=== PATIENT | female | born 1950 | race Caucasian/White ===

== ENCOUNTER → 2018-01-28 15:54 | Outpatient (CLI) | payer BC, SELFPAY ==
[2018-01-28 16:51] LABS: Absolute Lymphocyte Count 1.66 X10^3/ul (0.83-4.51); Absolute Neutrophil Count 2.6 X10^3/uL (2.0-7.7); Basophil# 0.02 X10^3/uL; Basophil% 0.4 % (0-1); Eosinophil# 0.07 X10^3/uL; Eosinophils% 1.5 % (0-5); Hematocrit 33.1 % (37-47); Hemoglobin 10.9 g/dl (12.0-15.0); Lymphocyte # 1.66 X10^3/ul (4.0); Lymphocyte % 35.4 % (19-41); Mean Corp Hgb Conc 32.9 g/gl (32-36); Mean Corpuscular Hgb 30.5 pg (27.0-32.0); Mean Corpuscular Volume 92.7 fL (81-99); Mean Platelet Vol. 10.8 fl (6.2-12.0); Monocyte# 0.37 X10^3/uL; Monocyte% 7.9 % (0-10); Neutrophil # 2.57 X10^3/uL (2.7-7.7); Neutrophil % 54.8 % (47-70); Platelet Count 259 K/mm3 (150-450); RBC Distribution Width CV 13.1 % (11.6-14.6); RBC Distribution Width SD 43.2 fl (35.1-43.9); Red Blood Count 3.57 M/mm3 (4.2-5.4); White Blood Count 4.7 K/mm3 (4.4-11.0)
[2018-01-28 16:54] LABS: POSITIVE COUNT NO; POSITIVE DIFFERENTIAL NO; POSITIVE MORPHOLOGY NO
[2018-01-28 17:22] LABS: AST(SGOT) 18 U/L (15-37); Alanine Aminotransfer ALT/SGPT 19 U/L (13-56); Albumin, Serum 3.4 g/dL (3.2-5.0); Alkaline Phosphatase 74 U/L (45-117); Anion Gap 10 (5-15); BUN 20 mg/dL (7-18); Calcium,Total 8.4 mg/dL (8.5-10.1); Chloride 110 mmol/L (98-107); Creatinine, Serum 0.74 mg/dL (0.55-1.02); EST Glomerular Filtration Rate 83 mL/min (>60); Est Glom Filt Rate - Afr Amer 100 mL/min (>60); Globulin 3.3 g/dL (2.2-4.2); Glucose 97 mg/dL (74-106); Potassium 3.6 mmol/L (3.5-5.1); Protein, Total 6.7 g/dL (6.4-8.2); Sodium Level 143 mmol/L (136-145); Thyroid Stim Hormone (TSH) 1.43 uIU/mL (0.358-3.74)
[2018-01-29 08:13] LABS: Vitamin D,25 Hydroxy 27.4 ng/mL (29.95-100.01)
== END ==
LOC: POLAB3 15:56
PROVIDERS: Family Provider Family Medicine Geriatric Medicine; PCP Family Medicine Geriatric Medicine; Visit Provider Family Medicine Geriatric Medicine
DX: I10 Essential (primary) hypertension (principal); E55.9 Vitamin D deficiency, unspecified; R53.83 Other fatigue
CPT/HCPCS: 36415; 80053; 82306; 84443; 85025

== ENCOUNTER → 2018-02-14 16:09 | Outpatient (CLI) | payer MEDICARE, SELFPAY ==
[2018-02-14 18:05] LABS: Ferritin 42 ng/mL (8-252); Iron 68 ug/dL (50-170)
[2018-02-14 18:24] LABS: Hemoglobin 11.3 g/dl (12.0-15.0); Mean Corp Hgb Conc 32.3 g/gl (32-36); Mean Corpuscular Hgb 30.6 pg (27.0-32.0); Mean Corpuscular Volume 94.9 fL (81-99); Mean Platelet Vol. 10.8 fl (6.2-12.0); Platelet Count 265 K/mm3 (150-450); RBC Distribution Width CV 13.1 % (11.6-14.6); RBC Distribution Width SD 43.8 fl (35.1-43.9); Red Blood Count 3.69 M/mm3 (4.2-5.4); White Blood Count 4.2 K/mm3 (4.4-11.0)
[2018-02-14 18:35] LABS: Scan Indicated on CBC? Y/N NO
== END ==
PROVIDERS: Family Provider Family Medicine Geriatric Medicine; PCP Family Medicine Geriatric Medicine; Visit Provider Internal Medicine Gastroenterology
DX: D50.9 Iron deficiency anemia, unspecified (principal)
CPT/HCPCS: 36415; 82728; 83540; 85027

== ENCOUNTER → 2018-05-07 15:09 | Outpatient (CLI) | payer MEDICARE, SELFPAY ==
[2018-05-07 16:40] LABS: Erythrocyte Sedimentation Rate 11 mm/hr (0-30)
[2018-05-07 16:42] LABS: Anion Gap 8 (5-15); BUN 23 mg/dL (7-18); BUN/Creat Ratio 26.7 RATIO (10-20); CRP < 2.90 mg/L (0.0-3.0); Calcium,Total 8.5 mg/dL (8.5-10.1); Chloride 111 mmol/L (98-107); Creatinine, Serum 0.86 mg/dL (0.55-1.02); EST Glomerular Filtration Rate 69 mL/min (>60); Est Glom Filt Rate - Afr Amer 84 mL/min (>60); Glucose 105 mg/dL (74-106); Sodium Level 145 mmol/L (136-145); Uric Acid 4.9 mg/dL (2.6-6.0)
== END ==
LOC: LAB 15:13
PROVIDERS: Family Provider Family Medicine Geriatric Medicine; PCP Family Medicine Geriatric Medicine; Visit Provider Family Medicine Geriatric Medicine
DX: M10.9 Gout, unspecified (principal); M79.1 Myalgia; R05 Cough
CPT/HCPCS: 36415; 80048; 84550; 85652; 86140

== ENCOUNTER → 2018-11-10 11:57 | Outpatient (CLI) | payer MEDICARE, SELFPAY ==
--- OUTSIDE RECORDS SUMMARY | 2019-01-12 23:01 | XMS RPT_ITS ---
:1950 Author Organization OHIP Support Name Relationship Address Phone OVERLFavian, MALIHA Unavailable [address] [place] [address] R Unavailable Unavailable Unavailable OVERLY, MALIHA Unavailable [address] [place] [address] R Unavailable Unavailable Unavailable OVERLY, MALIHA Unavailable [address] [place] [address] R Unavailable Unavailable Unavailable OVERLY, MALIAH Unavailable [address] [place] [address] R Unavailable Unavailable Unavailable OVERLY, MALIHA Unavailable [address] [place] [address] R Unavailable Unavailable Unavailable OVERLY, MALIHA Unavailable [address] [place] [address] R Unavailable Unavailable Unavailable OVERLY, MALIHA Unavailable [address] [place] [address] R Unavailable Unavailable Unavailable OVERLY, MALIHA Unavailable [address] [place] [address] R Unavailable Unavailable Unavailable OVERLY, MALIHA Unavailable [address] [place] [address] R Unavailable Unavailable Unavailable OVERLY, MALIHA Unavailable [address] [place] [address] R Unavailable Unavailable Unavailable Care Team Providers Name Role Phone Tab, Terence Chi Attending Unavailable Tab, Terence Chi Primary Care Unavailable Tab, Terence Chi Attending Unavailable Tab, Terence Chi Primary Care Unavailable Jarek Castro Attending Unavailable Jarek Castro Referring Unavailable Tab, Terence Chi Primary Care Unavailable Ashly Bennett D.C. Attending Unavailable Tab, Terence Chi Referring Unavailable Tab, Terence Chi Primary Care Unavailable DossieAshly D.C. Attending Unavailable DossieAshly D.C. Referring Unavailable Tab, Terence Chi Primary Care Unavailable DossieAshly D.C. Attending Unavailable Tab, Terence Chi Referring Unavailable Tab, Terence Chi Primary Care Unavailable DossieAshly D.C. Attending Unavailable Tab, Ternece Chi Referring Unavailable Tab, Terence Chi Attending Unavailable Tab, Terence Chi Referring Unavailable Tab, Terence Chi Primary Care Unavailable DossieAshly D.C. Attending Unavailable Tab, Terence Chi Referring Unavailable Tab, Terence Chi Primary Care Unavailable DossieAshly D.C. Attending Unavailable Tab, Terence Chi Referring Unavailable Tab, Terence Chi Primary Care Unavailable PROBLEMS PROBLEMS DATE TYPE CONDITION / CODE ATTENDING STATUS SOURCE 06/06/2018 Unknown M99.01 - Dossie, Ashly Active [place] [facility] dysfunction of Repository cervical region / M99.01(ICD-10) 06/06/2018 Unknown M99.02 - Dossie, Ashly Active [place] [facility] dysfunction of Repository thoracic region / M99.02(ICD-10) 06/06/2018 Unknown R51 - Headache / Dossie, Ashly Active [place] R51(ICD-10) [facility] Repository 06/06/2018 Unknown M50.30 - Other Dossie, Ashly Active [place] cervical disc D.C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 coli [place] Count 80,000-100,000 Presumptive E. coli: REACTION Ampicillin $ >=32 R Ampicillin/Sulbactam $ 16 I Cefazolin $ <=4 S Cefepime $ <=0.12 S Ceftazidime *NF <=1 S Ceftriaxone $ <=0.25 S Ciprofloxacin $ <=0.25 S Ertapenim $$$ <=0.12 S ESBL NEG Gentamicin $ <=1 S Imipenem *NF <=0.25 S Levofloxacin $ <=0.12 S Nitrofurantoin $ <=16 S Piperacillin/Tazobactam $$ <=4 S Tobramycin $ <=1 S Trimethoprim/Sulfametho $ <=20 S (NF) indicates non-formulary drug at [facility]. Approval by Infectious Disease Specialist required before non-formulary drugs may be ordered and/or dispensed. Performed By: #### M100.0650 #### [facility] [place], [address] CHIROPRACTIC REPORT Observed: 06/16/2018 Status: F Source: [place] 1:40 PM [facility] REPOSITORY [facility] [address] [place], [place] [id number] OFFICE VISIT Date of Service: 06/05/18 MR#: [id number] Acct: [id number] Name: AIMEE BLEVINS Rep #: [id number] : 1950 Provider: Ashly Rivers D.C. Age/Sex: 68/F Location: [facility] [place] Status: Signed Intake Vital Signs06/05/18 Height 5 ft 6 in 06/05/18 Weight: 175 lb 06/05/18 Body Mass Index (BMI) 28.2 Intake Visit Reasons: neck pain Chief Complaint: neck pain Is patient in pain?: Yes Allergies No Known Allergies Allergy (Verified 01/17/17 15:19) Medications Atorvastatin Calcium [Lipitor] 80 mg PO QHS 01/11/17 [History Confirmed 01/17/17] Docusate Sodium [Colace] 100 mg PO DAILY #20 cap 01/11/17 [Rx Confirmed 01/17/17] Fluoxetine HCl 60 mg PO DAILY 01/11/17 [History Confirmed 01/17/17] Losartan Potassium 100 mg PO DAILY 01/11/17 [History Confirmed 01/17/17] Fluoxetine [Prozac] 10 mg PO DAILY 01/17/17 [History Confirmed 01/17/17] PFSH Social History Smoking Status: Never smoker alcohol intake: never what type of physical activity do you participate in: none HPI neck pain : Chief Complaint: neck pain Visit Number: 4 Details: AIMEE BLEVINS is a 68 year old F who presents with decreased neck pain. She states that after last treatment her pain has slightly decreased, leaving her with a dull ache that comes and goes. She states that her headaches have slightly decreased, leaving her with roughly 3 per week. Lifting, sleeping and rotation causes increased pain although she denies any numbness or tingling. Location: neck pain Duration: intermittent Aggravating or associated factors: rotation of the neck, sleeping Relieving factors: chiro Pain Quality: aching, dull, cramping Exam Musc General: Yes normal gait, joint tenderness (C1, C2, C6, C7, T1, T2) and decreased ROM; no normal posture (anterior head carriage) Cervical Spine: loss of normal cervical lordosis, cervical muscular tenderness bilateral lower: paracervical muscle and trapezius, pain with cervical ROM with lateral flexion to right and with lateral flexion to left, cervical spasm, cervical ROM abnormal lateral flexion to the right decreased, lateral flexion to the left decreased, rotation to left decreased and rotation to right decreased Office Procedures Chiropractic Treatments Procedures Manipulation: 1-2 regions (C1, C6, T1, T2) Assessment AND Plan 1. Degenerative disc disease, cervical M50.30 Orders Orders: 2. Segmental and somatic dysfunction of thoracic region M99.02 Orders Orders: 3. Cervicogenic headache R51 Orders Orders: 4. Segmental and somatic dysfunction of cervical region M99.01 Orders Orders: Plan Detail Goals Decrease KENNEDY Decrease inflammation Barriers DDD Follow Up 1 x week Coding Level of Care Code No Charge Diagnoses Degenerative disc disease, cervical M50.30 Segmental and somatic dysfunction of thoracic region M99.02 Cervicogenic headache R51 Segmental and somatic dysfunction of cervical region M99.01 Additional Codes Procedures - Manipulation: 1-2 regions (43825) 06/16/18 1340 <Electronically signed by Ashly Rivers D.C.> Date Ashly Hernandezigndariana Signature: Date (if applicable) CC: CHIROPRACTIC REPORT Observed: 06/09/2018 Status: F Source: [place] 9:20 AM [facility] [address] [place] [address] OFFICE VISIT Date of Service: 05/29/18 MR#: [id number] Acct: [id number] Name: AIMEE BLEVINS Rep #: [id number] : 1950 Provider: Ashly Rivers D.C. Age/Sex: 68/F Location: [facility] Status: Signed Intake Vital Signs05/29/18 Height 5 ft 6 in 05/29/18 Weight: 175 lb 05/29/18 Body Mass Index (BMI) 28.2 Intake Visit Reasons: neck pain Chief Complaint: neck pain Accompanied by: Is patient in pain?: Yes Allergies No Known Allergies Allergy (Verified 01/17/17 15:19) Medications Atorvastatin Calcium [Lipitor] 80 mg PO QHS 01/11/17 [History Confirmed 01/17/17] Docusate Sodium [Colace] 100 mg PO DAILY #20 cap 01/11/17 [Rx Confirmed 01/17/17] Fluoxetine HCl 60 mg PO DAILY 01/11/17 [History Confirmed 01/17/17] Losartan Potassium 100 mg PO DAILY 01/11/17 [History Confirmed 01/17/17] Fluoxetine [Prozac] 10 mg PO DAILY 01/17/17 [History Confirmed 01/17/17] PFSH Social History Smoking Status: Never smoker alcohol intake: never what type of physical activity do you participate in: none HPI neck pain : Chief Complaint: neck pain Visit Number: 3 Details: AIMEE BLEVINS is a 68 year old F who presents with neck pain and headaches. Today Aimee rates her pain a 3/10 and describes it as a tight ache that bands across the neck, lifting, and sleeping cause increased pain that at times will cause a intense headache. Aimee states she is having roughly three headaches a week. The patient denies any numbness or tingling Location: neck Duration: constant Aggravating or associated factors: lifting and sleeping Relieving factors: chiro Pain Quality: aching, dull, sharp Exam Musc General: Yes normal gait, joint tenderness (C1, C2, C6, C7, T1, T2) and decreased ROM; no normal posture (anterior head carriage) Cervical Spine: loss of normal cervical lordosis, cervical muscular tenderness bilateral lower: paracervical muscle and trapezius, pain with cervical ROM with lateral flexion to right and with lateral flexion to left, cervical spasm, cervical ROM abnormal lateral flexion to the right decreased, lateral flexion to the left decreased, rotation to left decreased and rotation to right decreased Office Procedures Chiropractic Treatments Procedures Manipulation: 1-2 regions (C1, C6, T1, T2) Assessment AND Plan 1. Degenerative disc disease, cervical M50.30 Orders Orders: 2. Cervicogenic headache R51 Orders Orders: 3. Segmental and somatic dysfunction of thoracic region M99.02 Orders Orders: 4. Segmental and somatic dysfunction of cervical region M99.01 Orders Orders: Plan Detail Goals Decrease KENNEDY Decrease inflammation Barriers DDD Follow Up 1 Week Coding Level of Care Code No Charge Diagnoses Degenerative disc disease, cervical M50.30 Cervicogenic headache R51 Segmental and somatic dysfunction of thoracic region M99.02 Segmental and somatic dysfunction of cervical region M99.01 Additional Codes Procedures - Manipulation: 1-2 regions (08309) 06/09/18 0920 <Electronically signed by Ashly Rivers D.C.> Date Ashly Rivers D.C. Cosigner Signature: Date (if applicable) CC: ERYTHROCYTE SED RATE Collected: 05/07/2018 Status: F Source: [place] 3:18 PM [facility] REPOSITORY TYPE CODE TESTS RESULT OUT OF RANGE REFERENCE UNITS LAB L102.0000 0-30 mm/hr Normal SED RATE 11 Performed By: #### L101.9900 #### [facility] [address] [place], [place], [id number] BASIC METABOLIC Collected: 05/07/2018 Status: F Source: [place] PROFILE (BMP) 3:18 PM [facility] REPOSITORY TYPE CODE TESTS RESULT OUT OF RANGE REFERENCE UNITS LAB L501.0100 74-106 mg/dL Normal GLU 105 Result Comment: Fasting Glucose result from 100 to 125 mg/dL suggests IMPAIRED HOMEOSTASIS per A.D.A. criteria. Please note revised GLUCOSE reference range effective 2017. LAB L501.1000 7-18 mg/dL High BUN 23 LAB L501.1100 0.55-1.02 mg/dL Normal CREAT,SERUM 0.86 Result Comment: The validity of the calculated GFR AND GFRAA in patients over 70 years has not been determined. Clinical correlation is essential. LAB L501.1110 >60 mL/min Normal EST GFR 69 Result Comment: Non- GFR Calc LAB L501.1115 >60 mL/min Normal EST GFR - AA 84 Result Comment: GFR Calc LAB L501.1300 10-20 RATIO High BUN/CRE 26.7 LAB L501.2200 8.5-10.1 mg/dL CA Normal 8.5 LAB L501.5300 136-145 mmol/L NA Normal 145 LAB L501.5600 3.5-5.1 mmol/L K Normal 4.0 LAB L501.5900 98-107 mmol/L High CL 111 LAB L501.6100 21.0-32.0 mmol/L Normal CO2 26.0 LAB L501.6200 5-15 Normal GAP 8 Performed By: #### L500.2500, L501.1400, L501.6710 #### [facility] [address] [place], [place], [id number] URIC ACID Collected: 05/07/2018 Status: F Source: [place] 3:18 PM [facility] REPOSITORY TYPE CODE TESTS RESULT OUT OF RANGE REFERENCE UNITS LAB L501.1400 2.6-6.0 mg/dL Normal URIC 4.9 Result Comment: The drugs N-Acetylcysteine and Metamizole may falsely depress this assay. Performed By: #### L500.2500, L501.1400, L501.6710 #### [facility] [address] [place], [address] CRP Collected: 05/07/2018 Status: F Source: [place] 3:18 PM [facility] REPOSITORY TYPE CODE TESTS RESULT OUT OF RANGE REFERENCE UNITS LAB L501.6710 0.0-3.0 mg/L Normal < 2.90 C-REACTIVE PROT Result Comment: C-Reactive Protein (CRP) provides useful information for the diagnosis, therapy and monitoring of inflammatory processes and associated diseases. For the evaluation of Relative Risk for Cardiovascular Disease, a High Sensitivity CRP (HSCRP) should be ordered. Performed By: #### L500.2500, L501.1400, L501.6710 #### [facility] [address] [facility] [place], [address] CHIROPRACTIC REPORT Observed: 03/13/2018 Status: F Source: [place] 4:42 PM [facility] REPOSITORY [facility] [address] [place] [address] OFFICE VISIT Date of Service: 03/13/18 MR#: [id number] Acct: [id number] Name: AIMEE BLEVINS Rep #: [id number] : 1950 Provider: Ashly Rivers D.C. Age/Sex: 67/F Location: [facility] Status: Signed Intake Vital Signs03/13/18 Height 5 ft 6 in 03/13/18 Weight: 175 lb 03/13/18 Body Mass Index (BMI) 28.2 Intake Visit Reasons: neck pain Chief Complaint: neck pain Accompanied by: Is patient in pain?: Yes Allergies No Known Allergies Allergy (Verified 01/17/17 15:19) Medications Atorvastatin Calcium [Lipitor] 80 mg PO QHS 01/11/17 [History Confirmed 01/17/17] Docusate Sodium [Colace] 100 mg PO DAILY #20 cap 01/11/17 [Rx Confirmed 01/17/17] Fluoxetine HCl 60 mg PO DAILY 01/11/17 [History Confirmed 01/17/17] Losartan Potassium 100 mg PO DAILY 01/11/17 [History Confirmed 01/17/17] Fluoxetine [Prozac] 10 mg PO DAILY 01/17/17 [History Confirmed 01/17/17] PFSH Social History Smoking Status: Never smoker alcohol intake: never what type of physical activity do you participate in: none HPI neck pain : Chief Complaint: neck pain Visit Number: 2 Details: AIMEE BLEVINS is a 67 year old F who presents with neck pain and headaches. The patient states that her headaches have remained the same, when the weather changes she seems to get a migraine. Today Aimee rates her pain a 4/10 and describes it as a tight and sore ache that radiates across the neck. Aimee denies any numbness, tingling, or radiculopathy. Location: neck Duration: constant Aggravating or associated factors: rotation, looking down and lifting Relieving factors: none Pain Quality: aching, dull, sharp Exam Musc General: Yes normal gait, joint tenderness (C1, C2, C6, C7, T1, T2) and decreased ROM; no normal posture (anterior head carriage) Cervical Spine: loss of normal cervical lordosis, cervical muscular tenderness bilateral lower: paracervical muscle and trapezius, pain with cervical ROM with lateral flexion to right and with lateral flexion to left, cervical spasm, cervical ROM abnormal lateral flexion to the right decreased, lateral flexion to the left decreased, rotation to left decreased and rotation to right decreased Office Procedures Chiropractic Treatments Procedures Manipulation: 1-2 regions (C1, C6, T2) Assessment AND Plan Problems 1. Cervicogenic headache R51 2. Segmental and somatic dysfunction of thoracic region M99.02 3. Segmental and somatic dysfunction of cervical region M99.01 4. Degenerative disc disease, cervical M50.30 Plan Begin acute care treatment plan. Reviewed cervical xrays which revealed cervical DDD.Recommend 2x/wk/2wks Orders Orders: Plan Detail Goals Decrease KENNEDY Decrease inflammation Barriers DDD Follow Up 2x/wk Coding Level of Care Code No Charge Diagnoses Cervicogenic headache R51 Segmental and somatic dysfunction of thoracic region M99.02 Segmental and somatic dysfunction of cervical region M99.01 Degenerative disc disease, cervical M50.30 Additional Codes Procedures - Manipulation: 1-2 regions (06832) 03/13/18 1642 <Electronically signed by Ashly Rivers D.C.> Date Ashly Hernandezigndariana Signature: Date (if applicable) CC: CHIROPRACTIC REPORT Observed: 03/10/2018 Status: F Source: [place] 4:34 PM [facility] [address] [place] [address] OFFICE VISIT Date of Service: 03/06/18 MR#: [id number] Acct: [id number] Name: AIMEE BLEVINS Rep #: [id number] : 1950 Provider: Ashly Rivers D.C. Age/Sex: 67/F Location: [facility] Status: Signed Intake Vital Signs03/06/18 Height 5 ft 6 in 03/06/18 Weight: 175 lb 03/06/18 Body Mass Index (BMI) 28.2 Intake Visit Reasons: neck pain Chief Complaint: neck pain w/ headaches Accompanied by: Is patient in pain?: Yes Allergies No Known Allergies Allergy (Verified 01/17/17 15:19) Medications Atorvastatin Calcium [Lipitor] 80 mg PO QHS 01/11/17 [History Confirmed 01/17/17] Docusate Sodium [Colace] 100 mg PO DAILY #20 cap 01/11/17 [Rx Confirmed 01/17/17] Fluoxetine HCl 60 mg PO DAILY 01/11/17 [History Confirmed 01/17/17] Losartan Potassium 100 mg PO DAILY 01/11/17 [History Confirmed 01/17/17] Fluoxetine [Prozac] 10 mg PO DAILY 01/17/17 [History Confirmed 01/17/17] PFSH Social History Smoking Status: Never smoker alcohol intake: never what type of physical activity do you participate in: none HPI neck pain : Chief Complaint: neck pain Visit Number: 1 Referral source: Dr Barth Details: AIMEE BLEVINS is a 67 year old F who presents with bilateral neck pain. The patient states her pain has been ongoing for years when she was younger she did fall a distance many times causing her to black out. The patient stated she has headaches daily, but denies any migraines. At its worst the neck pain is rated a 6/10 and described as a sharp and tight ache that starts in the neck and radiates into the back of the head and forehead. Aimee denies any numbness or tingling, or radiculopathy although she states her ROM is decreased. Onset: 10/21/89 Location: neck pain Duration: constant Aggravating or associated factors: looking down, rotation, leaning from side to side Relieving factors: medication Pain Quality: aching, dull, sharp, radiating Exam Musc General: Yes normal gait, joint tenderness (C1, C2, C6, C7, T1, T2) and decreased ROM; no normal posture (anterior head carriage) Cervical Spine: loss of normal cervical lordosis, cervical muscular tenderness bilateral lower: paracervical muscle and trapezius, pain with cervical ROM with lateral flexion to right and with lateral flexion to left, cervical spasm, cervical ROM abnormal lateral flexion to the right decreased, lateral flexion to the left decreased, rotation to left decreased and rotation to right decreased Neuro General: alert, awake, oriented x3, gait normal, normal light touch, pain and propioception, no focal motor deficits Ortho Test CERVICAL Compression pain: Negative Distraction pain: relief Erik's pain: Negative Valsalvas: Negative Shoulder depression pain: Right (pos bilaterally) THORACIC LUMBAR Assessment AND Plan Problems 1. Segmental and somatic dysfunction of cervical region M99.01 2. Segmental and somatic dysfunction of thoracic region M99.02 3. Cervicogenic headache R51 Plan Ordered cervical xrays. Recommend acute treatment plan. Orders Orders: Plan Detail Goals Decrease KENNEDY Decrease inflammation Follow Up 2x/wk Coding Level of Care Code Off vis,new,level 3 Diagnoses Segmental and somatic dysfunction of cervical region M99.01 Segmental and somatic dysfunction of thoracic region M99.02 Cervicogenic headache R51 03/10/18 7591 <Electronically signed by Ashly Rivers D.C.> Date Ashly Sawyer Signature: Date (if applicable) CC: IRON Collected: 02/14/2018 Status: F Source: [place] 4:25 PM [facility] REPOSITORY TYPE CODE TESTS RESULT OUT OF RANGE REFERENCE UNITS LAB L503.6150 50-170 ug/dL Normal IRON 68 Performed By: #### L503.6150, L503.6550 #### [facility] [address] [place], [place], [address] FERRITIN Collected: 02/14/2018 Status: F Source: [place] 4:25 PM [facility] REPOSITORY TYPE CODE TESTS RESULT OUT OF RANGE REFERENCE UNITS LAB L503.6550 8-252 ng/mL Normal FERRITIN 42 Performed By: #### L503.6150, L503.6550 #### [facility] [address] [place], [place], [address] CBC-COMPLETE BLOOD CNT Collected: 02/14/2018 Status: F Source: [place] NO DIFF 4:25 PM [facility] REPOSITORY TYPE CODE TESTS RESULT OUT OF RANGE REFERENCE UNITS LAB L100.1000 4.4-11.0 K/mm3 Low WBC 4.2 LAB L100.1200 4.2-5.4 M/mm3 Low RBC 3.69 LAB L100.1300 12.0-15.0 g/dl Low HGB 11.3 LAB L100.1400 37-47 % Low HCT 35.0 LAB L100.1500 81-99 fL Normal MCV 94.9 LAB L100.1600 27.0-32.0 pg Normal MCH 30.6 LAB L100.1700 32-36 g/gl Normal MCHC 32.3 LAB L100.1810 11.6-14.6 % Normal RDW CV 13.1 LAB L100.1820 35.1-43.9 fl Normal RDW SD 43.8 LAB L100.1900 150-450 K/mm3 Normal PLT 265 LAB L100.2000 6.2-12.0 fl Normal MPV 10.8 Performed By: #### L100.0500 #### [facility] [address] [place], [place], [id number] CBC W/DIFF, AUTOMATED Collected: 01/28/2018 Status: F Source: [place] 3:57 PM [facility] REPOSITORY TYPE CODE TESTS RESULT OUT OF RANGE REFERENCE UNITS LAB L100.1000 4.4-11.0 K/mm3 Normal WBC 4.7 LAB L100.1200 4.2-5.4 M/mm3 Low RBC 3.57 LAB L100.1300 12.0-15.0 g/dl Low HGB 10.9 LAB L100.1400 37-47 % Low HCT 33.1 LAB L100.1500 81-99 fL Normal MCV 92.7 LAB L100.1600 27.0-32.0 pg Normal MCH 30.5 LAB L100.1700 32-36 g/gl Normal MCHC 32.9 LAB L100.1810 11.6-14.6 % Normal RDW CV 13.1 LAB L100.1820 35.1-43.9 fl Normal RDW SD 43.2 LAB L100.1900 150-450 K/mm3 Normal PLT 259 LAB L100.2000 6.2-12.0 fl Normal MPV 10.8 LAB L100.2100 47-70 % Normal NEUT% 54.8 LAB L100.2200 19-41 % Normal LY% 35.4 LAB L100.2300 0-10 % Normal MONO% 7.9 LAB L100.2400 0-5 % Normal EO% 1.5 LAB L100.2500 0-1 % Normal BASO% 0.4 LAB L100.2550 0.0-0.9 % Normal IM GRAN % 0.000 Result Comment: IG% - Immature Granulocytes (promyelocytes, myelocytes and metamyelocytes) > 1% indicates that a LEFT SHIFT is Present. LAB L100.2620 2.0-7.7 X10 3/uL Normal Absolute Neut 2.6 LAB L100.2720 0.83-4.51 X10 3/ul Normal Absolute Lymph 1.66 Performed By: #### L100.0100 #### [facility] [address] [place], [place], [address] COMPREHENSIVE METABOLIC Collected: 01/28/2018 Status: F Source: [place] 3:57 PM [facility] REPOSITORY TYPE CODE TESTS RESULT OUT OF RANGE REFERENCE UNITS LAB L501.0100 74-106 mg/dL Normal GLU 97 Result Comment: Please note revised GLUCOSE reference range effective 2017. LAB L501.1000 7-18 mg/dL High BUN 20 LAB L501.1100 0.55-1.02 mg/dL Normal CREAT,SERUM 0.74 Result Comment: The validity of the calculated GFR AND GFRAA in patients over 70 years has not been determined. Clinical correlation is essential. LAB L501.1110 >60 mL/min Normal EST GFR 83 Result Comment: Non- GFR Calc LAB L501.1115 >60 mL/min Normal EST GFR - AA 100 Result Comment: GFR Calc LAB L501.1300 10-20 RATIO High BUN/CRE 27.0 LAB L501.1500 6.4-8.2 g/dL T Normal PROT 6.7 LAB L501.1800 3.2-5.0 g/dL Normal ALB 3.4 LAB L501.1950 2.2-4.2 g/dL Normal GLOB 3.3 LAB L501.2000 0.9-2.4 RATIO Normal A/G 1.0 LAB L501.2200 8.5-10.1 mg/dL Low CA 8.4 LAB L501.4100 15-37 U/L Normal AST 18 LAB L501.4305 45-117 U/L Normal ALK P 74 LAB L501.4405 13-56 U/L Normal ALT 19 Result Comment: Please note revised ALT reference range effective 2017. LAB L501.4600 0.20-1.00 mg/dL Normal T BILI 0.20 LAB L501.5300 136-145 mmol/L Normal NA 143 LAB L501.5600 3.5-5.1 mmol/L Normal K 3.6 LAB L501.5900 98-107 mmol/L High CL 110 LAB L501.6100 21.0-32.0 mmol/L Normal CO2 23.0 LAB L501.6200 5-15 Normal GAP 10 Performed By: #### L500.4050, L501.9520 #### [facility] [address]. [place], [place], [id number] THYROID STIM HORMONE Collected: 01/28/2018 Status: F Source: DESIREE (TSH) 3:57 PM [facility] REPOSITORY TYPE CODE TESTS RESULT OUT OF RANGE REFERENCE UNITS LAB L501.9520 0.358-3.74 uIU/mL Normal TSH 1.43 Performed By: #### L500.4050, L501.9520 #### [facility] [address] [place], [address] VITAMIN D,25 HYDROXY Collected: 01/28/2018 Status: F Source: DESIREE 3:57 PM [facility] REPOSITORY TYPE CODE TESTS RESULT OUT OF REFERENCE UNITS RANGE LAB L506.1000 29.95-100.01 ng/mL Low Vitamin D 27.4 25-OH Result Comment: Vitamin D 25(OH) Status Range Deficiency <20 ng/mL (50nmol/L) Insuffciency 20 - 30 ng/mL (50 - 75 nmol/L) Sufficiency 30 - 100 ng/mL (75 - 250 nmol/L) Toxicity >100 ng/mL (>250 nmol/L) Performed By: #### L506.1000 #### [facility] [address] [place], [address] ALLERGIES ALLERGIES DATE TYPE / CODE NAME / CODE REACTION SEVERITY SOURCE 01/17/2017 Drug No Known Unknown [facility] Allergy/4160 Allergies/F00 [facility] 19453(SNOMED 8225924(RXNOR Repository CT) M) ENCOUNTERS ENCOUNTERS ADMIT/DISCHARGE ACCOUNT ADMITTING ENCOUNTER LOCATION SOURCE NUMBER CLASS 11/10/2018 [id number] Ambulatory Desiree Desiree 0 [facility] ing:POLAB3 Repository 06/05/2018/ [id number] Ambulatory BMSBuilding:B Desiree 8 8 [facility] Repository 05/29/2018/ [id number] Ambulatory BMSBuilding:B [place] 8 1 [facility] Repository 05/07/2018 [id number] Ambulatory Desiree Desiree 5 [facility] ing:LAB Repository 03/24/2018 [id number] Ambulatory BMSBuilding:B Des[place]e 6 [facility] Repository 03/13/2018/ [id number] Ambulatory BMSBuilding:B Des[place] 8 7 [facility] Repository 03/12/2018 [id number] Ambulatory Desiree Desiree 9 [facility] ing:HPRAD Repository 03/06/2018/ [id number] Ambulatory BMSBuilding:B [place] 8 8 [facility] Repository 02/14/2018 [id number] Ambulatory Desiree Desiree 4 [facility] ing:MTLAB Repository 01/28/2018 [id number] Ambulatory [place] 4 [facility] ing:POLAB3 Repository PAYERS PAYERS ENCOUNTER GUARANTOR PAYER SUBSCRIBER SOURCE 11/10/2018 AIMEE Quintanilla [place] [id number] Insurance:ANTHEM OVERLYDOB: Community [employer] S[employer]IOR [id number] ADVANTAPolicy Number: Repository [id number]: 330 [id number] [phone] () Date:[id number] [address]WJ: 11/10/2018 Secondary NOT GIVENUNK Desiree Insurance:SELF PAY [facility] Number: Effective Repository Date:2018-11-10 06/05/2018 AIMEE Quintanilla [place] [id number] Insurance:ANTHEM OVERLYDOB: Community [employer] SENIOR [id number] ADVANTAPolicy Number: Repository [id number]: 330 [id number] [phone] () Date:[id number] [address]UY: 06/05/2018 Secondary NOT GIVENUNK [place] Insurance:SELF PAY [facility] Number: Effective Repository Date:2018-06-05 05/29/2018 AIMEE Quintanilla [place] [id number] Insurance:ANTHEM OVERLYDOB: Community [employer] S[employer]IOR [id number] ADVANTAPolicy Number: Repository [id number]: 330 [id number] [phone] (HP) Date:6778-92-49TQ [address]WCFER[address] [place] [address]FH: 05/29/2018 Secondary NOT GIVENUNK [place] Insurance:SELF PAY [facility]: Effective Repository Date:2018-05-29 05/07/2018 AIMEE Quintanilla Primary AIMEE Quintanilla [place] [id number] Insurance:ANTHEM OVERLYDOB: Community [employer] SENIOR [id number] ADVANTAPolicy Number: Repository [id number]: (330) [id number] [phone] (HP) Date:7730-12-69NQ [address] [place] [address] [place] [address]MO: 05/07/2018 Secondary NOT GIVENUNK Desiree Insurance:SELF PAY [facility] Number: Effective Repository Date:2018-05-07 03/24/2018 AIMEE Quintanilla Primary AIMEE Quintanilla Desiree [id number] Insurance:ANTHEM OVERLYDOB: Community [employer] MED[employer] SENIOR [id number] ADVANTAPolicy Number: Repository [id number]: (330) [id number] [phone] (HP) Date:2777-07-33KF [address] [place] [address] [place] [address]ZM: 03/24/2018 Secondary NOT GIVENUNK Desiree Insurance:SELF PAY [facility] Number: Effective Repository Date:2018-03-13 03/13/2018 AIMEE Quintanilla Primary AIMEE Quintanilla Desiree [id number] Insurance:ANTHEM OVERLYDOB: Community [employer] SENIOR [id number] ADVANTAPolicy Number: Repository [id number]: (330) [id number] [phone] (HP) Date:4150-87-85XD [address] [place] [address]PO: 03/13/2018 Secondary NOT GIVENUNK Desiree Insurance:SELF PAY [facility] Number: Effective Repository Date:2018-03-13 03/12/2018 AIMEE Quintanilla Primary NOT GIVENUNK [place] [id number] Insurance:SELF PAY Community [employer] [address] Number: Effective Repository [id number]: (330) Date:2018-03-12 [phone] (HP) 03/06/2018 AIMEE Quintanilla Primary AIMEE Quintanilla [place] [id number] Insurance:ANTHEM OVERLYDOB: Community [employer] MEDICARE [facility] [id number] ADVANTAPolicy Number: Repository [id number]: [phone]) [id number] [phone] (HP) Date:1515-18-70NR [address]IQYDMBH [place] [address]JS: 03/06/2018 Secondary NOT GIVENUNK [place] Insurance:SELF PAY [facility] Number: Effective Repository Date:2018-03-06 02/14/2018 AIMEE Quintainlla Primary AIMEE Quintanilla Desiree [id number] Insurance:ANTHEM OVERLYDOB: Community [employer] MEDICARE [facility] [id number] ADVANTAPolicy Number: Repository [id number]: [phone]) [id number] [phone] (HP) Date:0918-44-01ZP [address], [place] [address]LF: 02/14/2018 Secondary NOT GIVENUNK [place] Insurance:SELF PAY [facility] Number: Effective Repository Date:2018-02-14 01/28/2018 AIMEE Quintanilla Primary AIMEE Quintanilla [place] [id number] Insurance:ANTHEM OVERLYDOB: Community [employer] EXCHG HMOPolicy [id number] [address] Number: Repository [id number]: (330) [id number] [phone] (HP) Date:6742-70-40JO [address], [place] [address]IJ: 01/28/2018 Secondary NOT GIVENUNK Desiree Insurance:SELF PAY [facility] Effective Repository Date:2018-01-28
== END ==
PROVIDERS: Family Provider Family Medicine Geriatric Medicine; PCP Family Medicine Geriatric Medicine; Visit Provider Family Medicine Geriatric Medicine
DX: N39.0 Urinary tract infection, site not specified (principal)
CPT/HCPCS: 87086; 87088; 87186

== ENCOUNTER → 2019-01-20 15:48 | Outpatient (CLI) | payer MEDICARE, SELFPAY ==
[2018-06-05 17:05] VITALS: BMI 28.2
[2019-01-20 17:26] LABS: Absolute Lymphocyte Count 1.46 X10^3/ul (0.83-4.51); Absolute Neutrophil Count 2.7 X10^3/uL (2.0-7.7); Basophil# 0.01 X10^3/uL; Basophil% 0.2 % (0-1); Eosinophil# 0.04 X10^3/uL; Eosinophils% 0.9 % (0-5); Hematocrit 34.1 % (37-47); Hemoglobin 10.7 g/dl (12.0-15.0); Lymphocyte # 1.46 X10^3/ul (4.0); Lymphocyte % 31.9 % (19-41); Mean Corp Hgb Conc 31.4 g/gl (32-36); Mean Corpuscular Hgb 29.6 pg (27.0-32.0); Mean Corpuscular Volume 94.2 fL (81-99); Mean Platelet Vol. 10.3 fl (6.2-12.0); Monocyte# 0.38 X10^3/uL; Monocyte% 8.3 % (0-10); Neutrophil # 2.67 X10^3/uL (2.7-7.7); Neutrophil % 58.5 % (47-70); Platelet Count 272 K/mm3 (150-450); RBC Distribution Width CV 13.2 % (11.6-14.6); RBC Distribution Width SD 45.4 fl (35.1-43.9); Red Blood Count 3.62 M/mm3 (4.2-5.4); White Blood Count 4.6 K/mm3 (4.4-11.0)
[2019-01-20 17:29] LABS: POSITIVE COUNT NO; POSITIVE DIFFERENTIAL NO; POSITIVE MORPHOLOGY NO
[2019-01-20 17:42] LABS: Vitamin D,25 Hydroxy 28.3 ng/mL (29.95-100.01)
[2019-01-20 17:46] LABS: AST(SGOT) 20 U/L (15-37); Alanine Aminotransfer ALT/SGPT 24 U/L (13-56); Albumin, Serum 3.6 g/dL (3.2-5.0); Alkaline Phosphatase 82 U/L (45-117); Anion Gap 7 (5-15); BUN 33 mg/dL (7-18); BUN/Creat Ratio 33.1 RATIO (10-20); Chloride 106 mmol/L (98-107); EST Glomerular Filtration Rate 58 mL/min (>60); Est Glom Filt Rate - Afr Amer 71 mL/min (>60); Globulin 3.6 g/dL (2.2-4.2); Glucose 97 mg/dL (74-106); Potassium 4.2 mmol/L (3.5-5.1); Protein, Total 7.2 g/dL (6.4-8.2); Sodium Level 139 mmol/L (136-145); Thyroid Stim Hormone (TSH) 1.25 uIU/mL (0.358-3.74)
== END ==
PROVIDERS: Family Provider Family Medicine Geriatric Medicine; PCP Family Medicine Geriatric Medicine; Visit Provider Family Medicine Geriatric Medicine
DX: I10 Essential (primary) hypertension (principal); E55.9 Vitamin D deficiency, unspecified
CPT/HCPCS: 36415; 80053; 82306; 84443; 85025

== ENCOUNTER → 2019-02-05 16:46 | Outpatient (CLI) | payer MEDICARE, SELFPAY ==
[2019-02-03 09:15] VITALS: BMI 27.8
== END ==
PROVIDERS: Family Provider Family Medicine Geriatric Medicine; PCP Family Medicine Geriatric Medicine; Referring Provider Internal Medicine Medical Oncology; Visit Provider Internal Medicine Medical Oncology
DX: D64.9 Anemia, unspecified (principal)
CPT/HCPCS: 82274

== ENCOUNTER → 2019-02-24 08:55 | Outpatient (CLI) | payer MEDICARE, SELFPAY ==
[2019-02-10 11:41] VITALS: BMI 27.9
[2019-02-24] VITALS (8 sets, daily range): BP systolic 93–134; BP diastolic 47–65; PULSE 69–79; RESP 13–18; TEMP 36.5; O2SAT 95–99; BMI 27.4
--- NOTE | 2019-02-24 | IMM_PTH ---
PATIENT: GIO BLEVINS LOC: CT U#:[id number] AGE/SX: 75/F ROOM: RE02/24/[address]: Dr. Mitchell Harris MD : 1950 BED: DIS: SPEC #: [id number] RECD: 02/25/19 12:53 STATUS: SOUMike REQ #: [id number] CRICKET: 02/24/19 00:[address]: Mitchell Harris DEPT: IMMUNOHISTOCHEMISTRY RECD BY: Laurel Umanzor ENTERED: 02/25/19 12:55 SP TYPE: IMMUNO OTHR DR: Dr. Terence Barth MD Tissues: B - Bone marrow of iliac crest Procedures: CD20 (add) CD45 (add) CD5 (add) CD79A (add) CD3 (initial) PHYSICIAN & INSTITUTION [place] [address] SPECIMEN INFORMATION: Tissue Source: B - Bone marrow clot Clinical Info: Chronic anemia Specimen Number: [id number] CPT code: 19431, 78197 x4 METHODOLOGY: Deparaffinized sections of prefer/formalin-fixed tissue or PAP/DQ stained slides are incubated with monoclonal/polyclonal antibodies/oligonucleotide probes. Localization is made via biotin free immunoperoxidase method. Appropriate controls are performed and reacted as expected. Results on target cell population are indicated in the following table: RESULTS: ANTIBODY / CLONE RESULT Block B CD3 (PS1) positive CD5 (SP10) positive CD45 (RP2/18) positive CD20 (L26) positive CD79a (11E3) positive These tests were developed and their performance characteristics determined by [facility]. They may not have been cleared or approved by the U.S. Food and Drug Administration. The FDA has determined that such clearance or approval is not necessary. INTERPRETATION: B. Bone marrow clot: Interstitial infiltrates of small lymphocytes are noted, predominantly T-cell in nature, favor benign. ANÍBAL:madi 02/26/19
--- NOTE | 2019-02-24 09:15 | CT_ITS ---
PROCEDURE: CT GUIDED BONE marrow biopsy of the posterior aspect of the right iliac bone. DATE: February 24, 2019. INDICATION: Female, 68 years old. Anemia. PHYSICIAN: Jurgen Keane M.D. RADIATION DOSAGE (If Supplied By Facility): CTDIvol = ( 15.1 ) mGy, DLP = ( 386.97 ) mGycm PROCEDURE: The risks, benefits, and alternatives to the procedure were explained to the patient. The specific risk of hemorrhage requiring further treatment or intervention was detailed and accepted. Follow-up instructions were discussed with the patient as well. Written informed consent was obtained. The patient was brought into the CT suite and placed in the prone position. . An appropriate entry site was identified. The overlying skin was prepped and draped in the usual sterile fashion. 1% lidocaine was administered subcutaneously for local anesthesia. Conscious sedation was performed. The patient received 2 mg of Versed and 50 mcg of fentanyl intravenously. Conscious sedation was started at 10:14 AM and terminated at 10:31 AM. The patient was independently monitored by the department nurse. Under CT guidance, a bone marrow biopsy and bone marrow aspiration of the posterior aspect of the right iliac bone was performed. The specimens were then placed in the appropriate fluid and transported to the laboratory for analysis. Hemostasis was obtained. The patient tolerated the procedure well without immediate complications. CT/Biopsy/Inj or Needle Placement IMPRESSION: Successful CT guided bone marrow biopsy, as described above. Electronically Signed: Jurgen Keane, at 11:03 EDT , Service support ,
[2019-02-24 09:19] LABS: Absolute Lymphocyte Count 2.42 X10^3/ul (0.83-4.51); Absolute Neutrophil Count 2.8 X10^3/uL (2.0-7.7); Basophil# 0.02 X10^3/uL; Basophil% 0.3 % (0-1); Eosinophils% 1.7 % (0-5); Hematocrit 33.8 % (37-47); Hemoglobin 10.9 g/dl (12.0-15.0); Lymphocyte # 2.42 X10^3/ul (4.0); Lymphocyte % 42.2 % (19-41); Mean Corp Hgb Conc 32.2 g/gl (32-36); Mean Corpuscular Hgb 30.1 pg (27.0-32.0); Mean Corpuscular Volume 93.4 fL (81-99); Mean Platelet Vol. 9.6 fl (6.2-12.0); Monocyte# 0.36 X10^3/uL; Monocyte% 6.3 % (0-10); Neutrophil # 2.82 X10^3/uL (2.7-7.7); Neutrophil % 49.3 % (47-70); Platelet Count 265 K/mm3 (150-450); RBC Distribution Width CV 13.5 % (11.6-14.6); RBC Distribution Width SD 46.2 fl (35.1-43.9); Red Blood Count 3.62 M/mm3 (4.2-5.4); White Blood Count 5.7 K/mm3 (4.4-11.0)
[2019-02-24 09:20] LABS: POSITIVE COUNT NO; POSITIVE DIFFERENTIAL NO; POSITIVE MORPHOLOGY NO
[2019-02-24 09:27] LABS: International Normalized Ratio 0.9; Prothrombin Time (Protime)PT. 12.1 SECONDS (11.7-14.9)
[2019-02-24 09:28] LABS: Partial Thromboplast Time 24.1 Seconds (24.1-36.2)
--- NOTE | 2019-02-24 10:00 | BMB_PTH ---
PATIENT: GIO BLEVINS LOC: CT U#:[id number] AGE/SX: 75/F ROOM: RE02/24/[address]: Dr. Mitchell Harris MD : 1950 BED: DIS: SPEC #: [id number] RECD: 02/24/19 10:30 STATUS: ESTER SALMON #: [id number] CRICKET: 02/24/19 10:[address]: Mitchell Harris DEPT: BONE MARROW RECD BY: Gurpreet Arreola ENTERED: 02/24/19 11:35 SP TYPE: BMB AISHA DR: Dr. Terence Barth MD Tissues: A - Bone marrow, NOS B - Bone marrow, NOS C - Bone marrow, NOS Procedures: Decalcification bone/plaque Bone Marrow Aspiration Bone Marrow Core Biopsy Iron Stain Bone Marrow HEADER OPERATION: Bone marrow biopsy and aspiration PRE-OP DIAGNOSIS: Chronic anemia TISSUE SUBMITTED: A - Core, B - Clot, C - Smears, and send outs (flow, cytogenetics and MDS FISH) BONE MARROW DIAGNOSIS Right hip bone marrow core, clot and aspirate smears: Normocellular marrow with trilineage hematopoiesis. Iron - 3-4+, atypical or ring sideroblasts are not seen. Peripheral blood - mild normocytic anemia. Flow cytometry study from [facility] shows no significant immunophenotypic abnormality. The complete report is viewable in patient's EMR. Cytogenetic and MDS FISH studies are pending at this time. SJ:madi 02/27/19 COMMENT Clinical correlation and appropriate follow up are necessary. BONE MARROW STUDY Slides are reviewed. CBC DATE: 02/24/19 WBC 5.7; RBC 3.62; HGB 10.9; HCT 33.8; MCV 93.4; RDW 13.5; PLTS 265,000 SEGS 49.3%; LYMPHS 42.2%; MONOS 6.3%; EOS 1.7%; BASOS 0.3% PERIPHERAL SMEAR: Submitted. RBC: Mild normocytic anemia. WBC: Unremarkable. The WBC count is compatible to as reported above. PLTS: Adequate. BONE MARROW ASPIRATE DIFFERENTIAL: 200 cell count. Blasts % (normal 0-2): 0 Promyelocytes % (normal 1-5): 0 Myelocytes and metamyelocytes % (normal 17-41): 25 Bands and Segs % (normal 15-32): 14 Eos % (normal 1-6): 2 Basos % (normal 0-1): 0 Monocytes % (normal 0-4): 2 Erythroid Precursors % (normal 17-35): 40 Lymphocytes % (normal 7-13): 16 Plasma Cells % (normal 0-2): 1 ASPIRATE FINDINGS: Site: Right hip Paucispicular, Hypocellular M/E ratio: 1.0 (Normal 1.5-4.0) Megakaryocytes: Present and a few hypolobated megakaryocytes are noted. Erythropoiesis: Normoblastic. A few binucleated erythroid cells are noted. Rare mitosis is noted in the erythroid cells. Granulopoiesis: Progressive and unremarkable. Comment: Bone marrow spicules show crushed artifact. Significant dysplastic changes are not seen. CORE BIOPSY FINDINGS: Site: Right hip Adequacy: Adequate Cellularity: 40% M/E ratio: Mild erythroid hyperplasia. Megakaryocytes: Present and adequate in number. Bony trabeculae: Not present. The specimen entirely consists of blood clots with hematopoietic marrow. Granulomas: Absent. Lymphoid aggregate: Absent. Atypical infiltrate: Absent. ASPIRATE CLOT FINDINGS: Site: Right hip Marrow particles: A few Cellularity: 40% M/E ratio: Within normal limits. Megakaryocytes: Present and adequate in number. Granulomas: Absent. Lymphoid aggregates: Absent. Atypical infiltrates: Absent. Comment: Interstitial infiltrates of small lymphocytes are noted. Immunohistochemistry ([id number]) shows these infiltrates to be predominantly T-cell in nature, favor benign. SPECIAL STAINS WITH MATCHED CONTROLS: Iron: 3-4+, atypical or ring sideroblasts are not seen. Reticulin: No significant increase of reticulin fibers is noted. PAS: Highlights myeloid cells and megakaryocytes. BONE MARROW GROSS A - Received is a container labeled with the patient's name and designated bone marrow. The specimen consists of a piece of blood clot with possible bone measuring 1.3 cm in length and 0.1 cm in diameter. The specimen is totally submitted in one cassette after decalcification. B - Received labeled with the patient's name and designated bone marrow is a specimen that consists of multiple blood clots in two syringes. The specimen is entirely submitted for cell block preparation. C - Also received are 13 unstained and 1 peripheral stained slides. The unstained slides are submitted for appropriate staining. Also received are two green top tubes which are sent to our reference lab for flow, cytogenetics and MDS FISH. / SJ:rg 02/24/19 TC:5 CPT: 47894, 26379, 02927 x2, 88555 x3, 86174 ADDENDUM ADDENDUM ADDENDUM ADDENDUM ADDENDUM ADDENDUM ADDENDUM ADDENDUM ADDENDUM ADDENDUM ADDENDUM ADDENDUM ADDENDUM 03/19/2019 10:32 ADDENDUM 03/19/2019 10:32 ADDENDUM 03/19/2019 10:32 ADDENDUM 03/19/2019 10:32 ADDENDUM 03/19/2019 10:32 CYTOGENETICS REPORT FROM [facility] CYTOGENETIC RESULT: 46,XX[20] INTERPRETATION: Normal female karyotype was observed in twenty metaphases analyzed. MDS FISH PANEL FISH RESULT: Normal MDS panel. Please see complete report in e-chart or EMR for further details
[2019-02-24] MEDS: Midazolam 2 MG/2 ML Syringe IV (10:10)
[2019-02-24] MEDS: fentaNYL 100 MCG/2 ML Ampul IV (10:12)
== END ==
PROVIDERS: Family Provider Family Medicine Geriatric Medicine; PCP Family Medicine Geriatric Medicine; Referring Provider Internal Medicine Medical Oncology; Visit Provider Internal Medicine Medical Oncology
DX: Z01.818 Encounter for other preprocedural examination (principal); D64.9 Anemia, unspecified
CPT/HCPCS: 38222; 36415; 77012; 85025; 85610; 85730; 88305; 88311; 88313; 88341; 88342; 99153; 99156; 99157; J7040

== ENCOUNTER 2019-03-08 01:31 | Inpatient (IN) | payer MEDICARE, SELFPAY ==
[2019-02-24 09:21] VITALS: BMI 27.4
[2019-03-08] VITALS (18 sets, daily range): BP systolic 105–143; BP diastolic 63–83; PULSE 59–82; RESP 14–18; TEMP 36.5–36.8; O2SAT 95–100; BMI 28.5; BMI 27.5
--- NOTE | 2019-03-08 01:37 | EKG12_ITS ---
Test Reason : CP Blood Pressure : / mmHG Vent. Rate : 074 BPM Atrial Rate : 074 BPM P-R Int : 200 ms QRS Dur : 090 ms QT Int : 396 ms P-R-T Axes : 057 002 086 degrees QTc Int : 439 ms Normal sinus rhythm Inferior infarct , age undetermined ST & T wave abnormality, consider lateral ischemia Abnormal ECG Confirmed by WILNER SUERO, JE ([id number]), science editor KAREN PEREZ ([id number]) on 03/09/2019 3:47:49 PM Referred By: Mitchell Perdue Confirmed By:JE DARBY MD
--- NOTE | 2019-03-08 01:37 | RAD_ITS ---
STUDY: X-RAY CHEST REASON FOR EXAM: Female, 68 years old. Chest pain TECHNIQUE: Single frontal view of the chest. COMPARISON: None. FINDINGS: The lungs are clear and expanded. There is no demonstrated pleural abnormality. Normal size heart. Calcified aorta. There are diffuse degenerative changes of the visualized thoracic spine. Spinal stimulator device with the projecting over the T4-T5 region. Scoliotic curvature to the spine. There is degenerative osteoarthritis of the bilateral shoulders. There is no demonstrated abnormality of the visualized soft tissue structures of the upper abdomen. RAD/Chest 1 View (Portable) IMPRESSION: Degenerative changes, as described above. No demonstrated acute cardiopulmonary process. Electronically Signed: Sunny Eid, at 2:33 EDT Tel , Service support ,
--- NOTE | 2019-03-08 01:48 | ED.VISSUMM ---
- ER Visit Summary Date of Service: 03/08/19 Chief Complaint: Chest pain History of Present Illness: The patient is a 68 F who presents with chest pain that began today. Patient states the pain can suddenly. Patient states the pain is over the substernal area. Patient describes pain as aching and burning. Patient states nothing makes the pain better or worse. Patient admits to some nausea and diaphoresis with the pain. Patient also admits to some weakness and lightheadedness. Patient denies any shortness of breath. She denies any cough or fever. Patient states she did have a recent bone marrow biopsy 2 weeks ago. Physical Examination: Vital signs are stable. Patient is afebrile. Patient is in no acute distress. Oral mucosa is pink and moist. Neck is supple. Trachea is midline. There is no JVD noted. Heart was regular rate and rhythm. Lungs are clear and equal bilaterally. There is some reproducible tenderness over the lower sternum. Abdomen is soft. Bowel sounds are normal. There is no tenderness. There is no rebound or guarding noted. Cranial nerves II through XII are intact. There are no focal motor or sensory deficits noted. Test Results: EKG showed normal sinus rhythm with a rate of 74. There is nonspecific ST depression in leads I, aVL, V5, and V6. There are no prior EKGs available for comparison. CBC showed a mild anemia with a hemoglobin of 10.7. White blood cell count and platelets were normal. Basic metabolic profile showed an elevated creatinine of 1.22. This was slightly elevated from previous results. Troponin was elevated at 1.04. Portable chest x-ray was obtained. There is no acute cardiopulmonary process. This was interpreted by the radiologist and reviewed by myself. Emergency Department Course and Treatment: Patient was given aspirin and sublingual nitroglycerin here. Patient was pain-free after 3 sublingual nitroglycerin tablets. Case was discussed with Dr. Girard. He recommended giving the patient 180 mg of Brilinta here starting the patient on 90 mg twice daily in the hospital. He also recommended starting patient on IV heparin. Case was discussed with the hospitalist. He will admit the patient to the hospital. Patient understood and was agreeable with the plan. All questions were answered. Disposition: Admit to hospital Impression: 1. Non-STEMI This note was generated with [employer] software. It may contain incorrect words, spelling, and punctuation that were not noted in review of the chart prior to signing ED Disposition - Plan for ED Patient: Disposition: Acute Care Hospital [facility] Diagnosis: Non-STEMI (non-ST elevated myocardial infarction) Referrals: Terence Barth Chi, MD [Primary Care Provider] -
[2019-03-08] MEDS: Aspirin 81 MG TAB.CHEW 324 MG PO (01:57)
[2019-03-08] MEDS: Nitroglycerin SL (ED/IMG/CATH) 0.4 MG TABLET SUBLINGUAL ×3 (01:58→02:16)
--- NOTE | 2019-03-08 02:00 | ED.DCSUM_ITS ---
- ER Visit Summary Date of Service: 03/08/19 Chief Complaint: Chest pain History of Present Illness: The patient is a 68 F who presents with chest pain that began today. Patient states the pain can suddenly. Patient states the pain is over the substernal area. Patient describes pain as aching and burning. Patient states nothing makes the pain better or worse. Patient admits to some nausea and diaphoresis with the pain. Patient also admits to some weakness and lightheadedness. Patient denies any shortness of breath. She denies any cough or fever. Patient states she did have a recent bone marrow biopsy 2 weeks ago. Physical Examination: Vital signs are stable. Patient is afebrile. Patient is in no acute distress. Oral mucosa is pink and moist. Neck is supple. Trachea is midline. There is no JVD noted. Heart was regular rate and rhythm. Lungs are clear and equal bilaterally. There is some reproducible tenderness over the lower sternum. Abdomen is soft. Bowel sounds are normal. There is no tenderness. There is no rebound or guarding noted. Cranial nerves II through XII are intact. There are no focal motor or sensory deficits noted. Test Results: EKG showed normal sinus rhythm with a rate of 74. There is nonspecific ST depression in leads I, aVL, V5, and V6. There are no prior EKGs available for comparison. CBC showed a mild anemia with a hemoglobin of 10.7. White blood cell count and platelets were normal. Basic metabolic profile showed an elevated creatinine of 1.22. This was slightly elevated from previous results. Troponin was elevated at 1.04. Portable chest x-ray was obtained. There is no acute cardiopulmonary process. This was interpreted by the radiologist and reviewed by myself. Emergency Department Course and Treatment: Patient was given aspirin and browne blingual nitroglycerin here. Patient was pain-free after 3 sublingual nitroglycerin tablets. Case was discussed with Dr. Girard. He recommended giving the patient 180 mg of Brilinta here starting the patient on 90 mg twice daily in the hospital. He also recommended starting patient on IV heparin. Case was discussed with the hospitalist. He will admit the patient to the hospital. Patient understood and was agreeable with the plan. All questions were answered. Disposition: Admit to hospital Impression: 1. Non-STEMI This note was generated with [employer] software. It may contain incorrect words, spelling, and punctuation that were not noted in review of the chart prior to signing ED Disposition - Plan for ED Patient: Disposition: Acute Care Hospital [facility] Diagnosis: Non-STEMI (non-ST elevated myocardial infarction) Referrals: Terence Barth Chi, MD [Primary Care Provider] -
[2019-03-08 02:04] LABS: Absolute Lymphocyte Count 1.88 X10^3/ul (0.83-4.51); Absolute Neutrophil Count 3.4 X10^3/uL (2.0-7.7); Basophil# 0.02 X10^3/uL; Basophil% 0.3 % (0-1); Eosinophil# 0.11 X10^3/uL; Eosinophils% 1.9 % (0-5); Hematocrit 32.9 % (37-47); Hemoglobin 10.7 g/dl (12.0-15.0); Lymphocyte # 1.88 X10^3/ul (4.0); Lymphocyte % 31.8 % (19-41); Mean Corp Hgb Conc 32.5 g/gl (32-36); Mean Corpuscular Hgb 30.7 pg (27.0-32.0); Mean Corpuscular Volume 94.3 fL (81-99); Mean Platelet Vol. 10.2 fl (6.2-12.0); Monocyte% 8.4 % (0-10); Neutrophil # 3.38 X10^3/uL (2.7-7.7); Neutrophil % 57.1 % (47-70); Platelet Count 253 K/mm3 (150-450); RBC Distribution Width CV 13.2 % (11.6-14.6); RBC Distribution Width SD 43.5 fl (35.1-43.9); Red Blood Count 3.49 M/mm3 (4.2-5.4); White Blood Count 5.9 K/mm3 (4.4-11.0)
[2019-03-08 02:09] LABS: POSITIVE COUNT NO; POSITIVE DIFFERENTIAL NO; POSITIVE MORPHOLOGY NO
--- NOTE | 2019-03-08 02:13 | ED.RN ---
AFTER FIRST NITRO PT RATES CHEST PAIN 6/10 TIGHTNESS. REPEAT VS, SEE VS. AFTER SECOND NITRO PT RATES PAIN 3/10 TIGHTNESS AND BURNING.
[2019-03-08 02:22] LABS: Anion Gap 9 (5-15); BUN 33 mg/dL (7-18); Calcium,Total 8.4 mg/dL (8.5-10.1); Chloride 109 mmol/L (98-107); Creatinine, Serum 1.22 mg/dL (0.55-1.02); EST Glomerular Filtration Rate 46 mL/min (>60); Est Glom Filt Rate - Afr Amer 56 mL/min (>60); Estimated Creatinine Clearance 37.05 ml/min; Glucose 142 mg/dL (74-106); Potassium 3.5 mmol/L (3.5-5.1); Sodium Level 143 mmol/L (136-145)
--- NOTE | 2019-03-08 02:27 | ED.RN ---
DR. AYOUB INFORMED OF TROPONIN 1.04.
[2019-03-08] MEDS: 0.9% Normal Saline 1,000 ML 1000 ML IV (02:29)
--- NOTE | 2019-03-08 02:32 | ED.RN ---
PT REPORTS BEING PAIN FREE AFTER THE THIRD DOSE OF NITRO.
--- NOTE | 2019-03-08 02:41 | HP.PCM_ITS ---
Problem List (1) Non-STEMI (non-ST elevated myocardial infarction) Status: Acute (2) Hypertension Status: Chronic (3) Hyperlipidemia Status: Chronic History of Present Illness Date of Admission: 03/08/19 Chief Complaint: CHEST PAIN The patient is a 68 year old F with a significant history of depression; hypertension; hyperlipidemia who presented to the emergency department with chest pain. Her chest pain started two days ago. 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 She felt weak; nauseous; was about to pass out; hot and she could hardly walk. She describes her chest pain as excruciating and continuous. It felt like 'gas' stuck in his chest. At the ED she was given nitroglycerin that helped with her pain. Her troponin was elevated and she EKG showed ST depression in the lateral leads. Cardiology was consulted. Per Emergency department doctor, cardiology recommended heparin drip; Brilinta loading and scheduled Brilinta. Also patient was noted to have elevation of creatinine above her baseline. Past Medical History Past Medical History (Chronic Problems): Chronic Problems (Last Reviewed 06/05/18 @ 17:06 by Maria Esther Arora) History of anemia (Chronic) Hyperlipidemia (Chronic) Hypertension (Chronic) Chronic pain (Chronic) History of cholelithiasis (Chronic) Chronic back pain (Chronic) Anemia (Chronic) Degenerative disc disease, cervical (Chronic) Allergies atorvastatin [From Lipitor] Adverse Reaction (Verified 02/10/19 11:41) Other muscle pain simvastatin Adverse Reaction (Verified 02/10/19 11:41) Other muscle pain Home Medications: Ambulatory Orders Medication Instructions Recorded Fluoxetine HCl 60 mg PO DAILY 01/11/17 Losartan Potassium 100 mg PO DAILY 01/11/17 Pitavastatin Calcium [Livalo] 2 mg PO DAILY 02/03/19 Surgical History: Surgical History (Last Reviewed 03/08/19 @ 04:00 by Mitchell Perdue MD) H/O spinal fusion Z98.1 S/P ligament repair Z98.890 Both arms Surgical History: cholecystectomy, hysterectomy, rotator cuff repair, - Smoking Status: Former smoker - Smoke a little bit when she was age 8-10; where she and his sister used to hide and take few puffs of her father's cigarettes. - *Family History Maternal Family History: Family History (Last Reviewed 03/08/19 @ 04:00 by Mitchell Perdue MD) Mother Dementia DVT (deep venous thrombosis) Father CVA (cerebral vascular accident) Brother Hypertension Sister Hypertension History Items: - - mother with dementia Sibling Family History: Family History (Last Reviewed 03/08/19 @ 04:00 by Mitchell Perdue MD) Mother Dementia DVT (deep venous thrombosis) Father CVA (cerebral vascular accident) Brother Hypertension Sister Hypertension History Items: - - father with stroke Review of Systems Constitutional: Reports: Weakness. Denies: Chills, Fever, Weight Change HEENT: Denies: Head Aches, Sinus Congestion, Sinus Drainage Cardiovascular: Reports: Chest Pain. Denies: Palpitations Respiratory: Reports: Shortness of Breath. Denies: Cough, Sputum production Gastrointestinal: Reports: Nausea. Denies: Abdominal Pain, Vomiting Genitourinary: Denies: Dysuria Musculoskeletal: Reports: Back Pain. Denies: Joint Pain, Joint Tenderness Skin: Denies: Rash, Wounds Neurological: Denies: Numbness, Tingling, Focal weakness Psychiatric: Denies: Anxiety, Depression, Homicidal Ideations, Suicidal Ideations Hematologic/ Lymphatic: Denies: Easy Bruising, Easy Bleeding VTE Information - Inpt Only VTE Present on Admission: No VTE Mechan Device Prophylaxis: None VTE Pharm Prophylaxis ordered?: No Reason prophylaxis not ordered:: Treatment Not Indicated - Patient has been started on heparin drip for non-ST elevation IA. Patient Problems: Active and Suspected Problems (Last Reviewed 06/05/18 @ 17:06 by Maria Esther Arora) Non-STEMI (non-ST elevated myocardial infarction) (Acute) - Physical Exam General: Alert, Oriented x3, Cooperative HEENT: Atraumatic, PERRLA, EOMI, Normocephalic Neck: Supple, No JVD, Negative Carotid Bruits Lungs: Clear to auscultation, Normal air movement Cardiovascular: Regular rate, No murmurs Abdomen: Bowel Sounds Present, Soft, Non Tender Extremities: No edema, Capillary Refill Less than 3 Seconds Skin: No rashes, No breakdown Musculoskeletal: No Tenderness to Palpation of Joints or Extremities Neurological: Cranial nerves II-XII grossly intact Psych/Mental Status: Normal Affect, Appropriate Vital Signs Temp Pulse Resp BP Pulse Ox 97.7 F L 81 14 105/77 97 03/08/19 01:32 03/08/19 02:31 03/08/19 02:31 03/08/19 02:31 03/08/19 02:31 Oxygen Flow Rate (L/min) 2 Oxygen Delivery Method Nasal Cannula Weight: 75.5 kg Body Mass Index (BMI) 28.5 Laboratory Tests Past 24 Hrs 03/08/19 03/08/19 03/08/19 01:37 01:37 01:37 WBC 5.9 RBC 3.49 L Hgb 10.7 L Hct 32.9 L MCV 94.3 MCH 30.7 MCHC 32.5 RDW 13.2 RDW Differential 43.5 Plt Count 253 MPV 10.2 Immature Gran % (Auto) 0.500 Neut % (Auto) 57.1 Lymph % (Auto) 31.8 [place] % (Auto) 8.4 Eos % (Auto) 1.9 Baso % (Auto) 0.3 Absolute Neuts (auto) 3.4 Absolute Lymphs (auto) 1.88 Total Counted Not Reportable APTT Pending Sodium 143 Potassium 3.5 Chloride 109 H Carbon Dioxide 25.0 Anion Gap 9 BUN 33 H Creatinine 1.22 H Estim Creat Clear Calc 37.05 Est GFR (MDRD) Af Amer 56 L Est GFR (MDRD) Non-Af 46 L BUN/Creatinine Ratio 27.0 H Glucose 142 H Calcium 8.4 L Troponin I 1.040 H* Assessment/Plan All Active Problems (Last Reviewed 06/05/18 @ 17:06 by Maria Esther Arora) Cellulitis of right hand (Acute) Cat bite of finger (Acute) Segmental and somatic dysfunction of cervical region (Acute) Segmental and somatic dysfunction of thoracic region (Acute) Cervicogenic headache (Acute) Non-STEMI (non-ST elevated myocardial infarction) (Acute) The patient is a 68 year old F with a significant history of depression; h ypertension; hyperlipidemia who presented to the emergency department with excruciating chest pain; elevated troponin and elevated creatinine consistent with non-ST elevation IA and EMY. Non-ST elevation IA Admit to a monitored bed on PCU CXR independently reviewed confirms no acute cardiopulmonary process. EKG independently reviewed confirms ST depression in lateral leads I, aVL, V5 and V6. There are no previous EKG on file here to compare with. Aspirin 324 mg at emergency department. ASA 81 mg p.o. daily SL NTG 0.4 mg prn as needed for chest pain. If blood pressure can tolerate consider nitroglycerin paste. Morphine as needed for pain We will check lipid panel and hemoglobin A1c. Patient is allergic to atorvastatin and simvastatin. She reported at home she was taking cholesterol m edicine that cost about $300 per month. Because of cost she stopped taking it. Will order pravastatin while here. Serial cardiac enzymes Stat EKG as needed for chest pain Received loading dose of Brilinta at the emergency department. Scheduled Brilinta continued Continue heparin drip. Cardiac diet. Cardiology consult. EMY On presentation her creatinine was 1.22 Review of old records showed baseline creatinine of probable 0.9. Received normal saline bolus at emergency department. Continue gentle normal saline IV hydration. Avoid nephrotoxic's. We will hold home losartan. Trend BMP. Hypertension On presentation her blood pressure was within goal. On presentation patient received 3 nitroglycerin tablets. Trend blood pressures. Would hold losartan because of EMY. If Blood pressure can tolerate consider nitroglycerin patch. Hyperlipidemia Pravastatin ordered Depression Fluoxetine continued DVT prophylaxis Not indicated since patient has been started on heparin drip. Code Visit Inpatient E&M: 85726 Init Hosp L3
[2019-03-08 02:44] LABS: Partial Thromboplast Time 23.5 Seconds (24.1-36.2)
[2019-03-08] MEDS: TICAGRELOR 90 MG TABLET 180 MG PO (02:44)
[2019-03-08] MEDS: HEPARIN/D5w 25,000 UNITS 25,000 UNITS/250 ML IV.SOLN. 11 UNITS IV ×2 (02:44→21:39)
--- NOTE | 2019-03-08 02:48 | ED.RN ---
PER SR ANITRA,NO BOLUS OF HEPARIN.
--- NOTE | 2019-03-08 03:50 | EKG12_ITS ---
Test Reason : AM EKG Blood Pressure : / mmHG Vent. Rate : 057 BPM Atrial Rate : 057 BPM P-R Int : 216 ms QRS Dur : 082 ms QT Int : 488 ms P-R-T Axes : 053 004 -41 degrees QTc Int : 474 ms Sinus bradycardia with 1st degree A-V block Septal infarct , age undetermined T wave abnormality, consider inferior ischemia Abnormal ECG When compared with ECG of 08-MAR-2019 04:49, MANUAL COMPARISON REQUIRED, DATA IS UNCONFIRMED Confirmed by WILNER SUERO, JE ([id number]), editor house organ MACY MAHONEY ([id number]) on 03/10/2019 11:16:49 AM Referred By: Mitchell Perdue Confirmed By:JE DARBY MD
[2019-03-08] MEDS: 0.9% Normal Saline 1,000 ML 100 ML IV (04:04)
[2019-03-08] MEDS: Pravastatin 40 MG Tablet PO (04:20)
[2019-03-08 05:10] LABS: Cholesterol 252 mg/dL (200); High Density Lipoprotein 39 mg/dL; Triglycerides 467 mg/dL
--- NOTE | 2019-03-08 07:43 | PCM.PN.BLA ---
Progress Note Patient admitted because of chest pain, found to have acute non-ST elevation CA. This morning, chest pain significantly improved. Denies any more shortness of breath or dizziness. Initial EKG revealed normal sinus rhythm, T wave inversion in leads I and aVL which resolved with on repeat EKG this morning. Troponin is elevated, trending down. Her vital signs are stable. Physical examination essentially unremarkable. She is on aspirin, statins, Brilinta and IV heparin drip. Cardiology consulted, awaiting recommendations.
--- NOTE | 2019-03-08 08:11 | ECHOD_ITS ---
Reason For Study: S/P AR Procedure This was a 2D Doppler, Color Flow transthoracic echocardiogram. The study was technically difficult. Exam performed portable in patient room. Left Ventricle Normal LV size. Left ventricular systolic function is normal. The estimated ejection fraction is 55 %. No regional wall motion abnormalities noted. Right Ventricle Normal RV size. Normal systolic function. Atria Normal left atrium. Normal right atrium. No doppler evidence for ASD. Mitral Valve There is mild mitral annular calcification. Normal mitral valve. Mild-Moderate (1-2+) eccentric mitral valve insufficiency. Tricuspid Valve Normal tricuspid valve. Mild tricuspid valve insufficiency. Right ventricular systolic pressure estimated to be 26 mmHg. Aortic Valve Trisinus/trileaflet aortic valve. Mild diffuse aortic valve thickening. Moderate focal aortic valve calcification. Mild aortic stenosis. Pulmonic Valve The pulmonic valve is not well visualized. Great Vessels Normal sized aortic root. Pericardium/Pleural No pericardial effusion. Medication Diluted definity 2ml given slow IV push to enhance endocardial definition. MMode/2D Measurements & Calculations LVIDd: 4.3 cm IVSd: 0.95 cm LVOT diam: 1.8 cm LVIDs: 2.9 cm LVPWd: 1.1 cm RVDd: 3.7 cm FS: 32.1 % LVOT area: 2.4 cm2 Ao root diam: 3.6 cm LAV(MOD-bp): 50.8 ml EDV(MOD-sp4): 90.3 ml LAV(MOD-bp) Indexed: 28.5 ml/m2 ESV(MOD-sp4): 42.3 ml LAV(MOD-sp2): 57.5 ml EF(MOD-sp4): 53.2 % LAV(MOD-sp4): 41.4 ml SV(MOD-sp4): 48.1 ml LA dimension(2D): 3.6 cm LA A4 area: 15.6 cm2 RA A4 area: 15.0 cm2 Time Measurements MV dec time: 0.20 sec Doppler Measurements & Calculations MV E max zach: 102.0 cm/sec Lat Peak E' Zach: 10.6 cm/sec Med Peak E' Zach: 8.0 cm/sec MV A max zach: 80.8 cm/sec E/E' lat: 9.6 E/E' med: 12.7 MV E/A: 1.3 Ao V2 max: 154.5 cm/sec LV V1 max: 102.7 cm/sec PA V2 max: 95.0 cm/sec Ao max P.6 mmHg LV V1 max P.2 mmHg KALIA(V,D): 1.6 cm2 TR max zach: 238.6 cm/sec TR max P.8 mmHg Interpretation Summary The study was technically difficult. Left ventricular systolic function is normal. The estimated ejection fraction is 55 %. There is mild mitral annular calcification. Mild-Moderate (1-2+) eccentric mitral valve insufficiency. Mild tricuspid valve insufficiency. Mild aortic stenosis. Right ventricular systolic pressure estimated to be 26 mmHg. Transmitral diastolic flow velocities suggest diastolic dysfunction (pseudonormal pattern). Ordering Physician: Ethan Girard Referring Physician: MICHELA SAGASTUME CHI Performed By: Irene Fleming, RDCS, RVT
[2019-03-08 09:14] LABS: Partial Thromboplast Time 47.2 Seconds (24.1-36.2)
[2019-03-08] MEDS: Heparin Injection (Vial) 5,000 UNIT/ML VIAL IV (09:45)
[2019-03-08 09:47] LABS: Hemoglobin A1c 5.5 % (4.2-6.3)
[2019-03-08] MEDS: TICAGRELOR 90 MG TABLET PO ×2 (09:50→21:36)
[2019-03-08] MEDS: FLUoxetine 20 MG Capsule 60 MG PO (09:50)
[2019-03-08] MEDS: Acetaminophen 325 MG Tablet 650 MG PO ×2 (11:40→23:34)
--- NOTE | 2019-03-08 12:30 | PCM.CONS.C ---
Problem List (1) NSTEMI (non-ST elevated myocardial infarction) Status: Acute (2) Murmur, cardiac Status: Acute (3) Hyperlipidemia Status: Chronic (4) Hypertension Status: Chronic (5) Anemia Status: Chronic Qualifiers: Anemia type: unspecified type Qualified Code(s): D64.9 - Anemia, unspecified Reason for Consult Date of Consultation: 03/08/19 History of Present Illness: The patient is a 68 year old white female who presents for evaluation of an acute non-ST segment elevation DE superimposed upon hyperlipidemia, hypertension, and anemia of uncertain etiology. The patient states she has been having symptoms on and off which she has described as indigestion or heartburn associated with nausea, no emesis, shortness of breath/dyspnea, and potentially diaphoresis. Based upon her on and off symptoms she subsequently presented to the [facility] emergency department for further evaluation. Upon evaluation she was having symptoms. She was treated with aspirin therapy and nitroglycerin sublingual therapy. She states her symptoms abated and have not returned. However her troponin I level was abnormal at that time. Her ECG demonstrated sinus rhythm with a septal DE pattern of indeterminate age cannot be excluded and an inferior DE pattern of indeterminate age cannot be excluded as well as ST and T wave changes potentially compatible with lateral myocardial ischemia. She was treated medically with a combination of aspirin, antiplatelets, anticoagulants, and placed in the PCU for further evaluation. Her repeat troponin I level has remained positive. Her repeat ECG has demonstrated sinus rhythm with a septal DE pattern of indeterminate age cannot be excluded and T wave changes compatible with myocardial ischemia in the inferior distribution. She has denied orthopnea or PND or lower extremity peripheral pitting edema. She also has denied any near-syncope or syncope. She states she has been told she has a cardiac murmur but does not recall undergoing any cardiovascular evaluation for this in the past. She has been undergoing evaluation for anemia. This is included hematology oncology evaluation with bone marrow aspirate/biopsy. She states she has yet to be given a definitive diagnosis for her anemia. She notes that she has been intolerant to medications such as atorvastatin in the past. She believes she tolerated simvastatin but states that she could not afford the prescription. [] Past Medical History Allergies/Adverse Reactions: Allergies atorvastatin [From Lipitor] Adverse Reaction (Verified 02/10/19 11:41) Other muscle pain simvastatin Adverse Reaction (Verified 02/10/19 11:41) Other muscle pain Home Medications: Ambulatory Orders Medication Instructions Recorded Fluoxetine HCl 60 mg PO DAILY 01/11/17 Losartan Potassium 100 mg PO DAILY 01/11/17 Multivitamin with Minerals 1 each PO DAILY 03/08/19 [Multiple Vitamin] [place]-3 Fatty Acids/Fish Oil [Fish 1 each PO DAILY 03/08/19 Oil 1,000 mg Capsule] Past Medical History (Chronic Problems): Chronic Problems (Last Reviewed 06/05/18 @ 17:06 by Maria Esther Arora) History of anemia (Chronic) Hyperlipidemia (Chronic) Hypertension (Chronic) Chronic pain (Chronic) History of cholelithiasis (Chronic) Chronic back pain (Chronic) Anemia (Chronic) Degenerative disc disease, cervical (Chronic) Surgical History: cholecystectomy, hysterectomy, rotator cuff repair, - - *Family History Maternal Family History: Family History (Last Reviewed 03/08/19 @ 04:00 by Mitchell Perdue MD) Mother Dementia DVT (deep venous thrombosis) Father CVA (cerebral vascular accident) Brother Hypertension Sister Hypertension History Items: - - mother with dementia Sibling Family History: Family History (Last Reviewed 03/08/19 @ 04:00 by Mitchell Perdue MD) Mother Dementia DVT (deep venous thrombosis) Father CVA (cerebral vascular accident) Brother Hypertension Sister Hypertension History Items: - - father with stroke Smoking Status: Former smoker - Smoke a little bit when she was age 8-10; where she and his sister used to hide and take few puffs of her father's cigarettes. Alcohol: None Drugs: None Review of Systems - Review of Systems General: Denies: Fever, Night Sweats, Fatigue Cardiovascular: Reports: Chest Discomfort, Chest Discomfort at Rest, Shortness of Breath, Shortness of Breath at Rest, - - Diaphoresis. Denies: Orthopnea, PND, Peripheral Edema, Palpitations, Lightheadedness, Dizziness, Near Syncope, Syncope Respiratory: Reports: Shortness of Breath. Denies: Cough, Sputum Production, Hemoptysis Gastrointestinal: Reports: Indigestion, Heart Burn, Nausea Genitourinary: Denies: Dysuria, Hematuria Skin: Denies: Rash Subjectve: This is a 68-year-old white female who appears to be resting comfortably at the moment in no acute distress. Objective: Vital Signs Temp Pulse Resp BP Pulse Ox 98.0 F 76 16 128/75 H 97 03/08/19 09:55 03/08/19 09:55 03/08/19 09:55 03/08/19 09:55 03/08/19 09:55 Oxygen Flow Rate (L/min) 2 Oxygen Delivery Method Room Air Weight: 160 lb 4.417 oz Body Mass Index (BMI) 27.5 Intake and Output for Last 24 Hours 03/06/19 03/07/19 03/08/19 23:59 23:59 23:59 Intake Total 1096.3 / 1096.3 Balance 1096.3 / 1096.3 General: Awake, Alert, Oriented x 3, Cooperative, No Acute Distress HEENT: Atraumatic, Normocephalic, PERRL, EOMI, Sclera Non Icteric Oral: Moist Mucosa Neck: Supple, Good ROM, No JVD Lungs: Clear to auscultation Cardiovascular: Regular Rhythm, Normal S1, Normal S2 Murmur Murmur: Grade 3/6, Soft, Mid Systolic, LLSB, [place], LVOT Vascular: No Carotid Bruits Abdomen: Bowel Sounds Present, Soft, Non Tender Extremities: No Cyanosis, No Clubbing, No edema Neurological: No Focal Motor or Sensory Deficit Psych/Mental Status: Appropriate 03/08/19 01:37: WBC 5.9, RBC 3.49 L, Hgb 10.7 L, Hct 32.9 L, MCV 94.3, MCH 30.7, MCHC 32.5, RDW 13.2, RDW Differential 43.5, Plt Count 253, MPV 10.2, Immature Gran % (Auto) 0.500, Neut % (Auto) 57.1, Lymph % (Auto) 31.8, [place] % (Auto) 8.4, Eos % (Auto) 1.9, Baso % (Auto) 0.3, Absolute Neuts (auto) 3.4, Total Counted Not Reportable 03/08/19 01:37: Sodium 143, Potassium 3.5, Chloride 109 H, Carbon Dioxide 25.0, Anion Gap 9, BUN 33 H, Creatinine 1.22 H, Est GFR (MDRD) Af Amer 56 L, Est GFR (MDRD) Non-Af 46 L, BUN/Creatinine Ratio 27.0 H, Glucose 142 H, Calcium 8.4 L, Troponin I 1.040 H* 03/08/19 01:37: APTT 23.5 L 03/08/19 04:35: Hemoglobin A1c 5.5 03/08/19 04:35: Triglycerides 467 H, Cholesterol 252 H, LDL Cholesterol TNP, VLDL Cholesterol TNP, HDL Cholesterol 39 L 03/08/19 04:35: Troponin I 0.822 H* 03/08/19 07:44: Troponin I 1.510 H* 03/08/19 08:45: APTT 47.2 H 03/08/19 11:10: Troponin I 1.970 H* Rhythm: Sinus rhythm EKG: As noted above CXR: Preliminary evaluation: No acute cardiopulmonary disease process appreciated: Please see official report Assessment/Plan 1. Acute non-ST segment elevation DE The patient has appeared to experience an acute non-ST segment elevation DE. At the present time she appears to be symptomatically improved. She will continue to have her cardiac enzymes and ECG followed. She will have an echocardiogram to assess her ventricular wall motion and systolic function. She is also been recommended for further evaluation with diagnostic cardiac catheterization. The procedure risks were discussed with her and she was agreeable to this approach. In the interim she will continue medical therapy. This will include agents such as aspirin, antiplatelets, anticoagulants, beta-blockers, lipid-lowering agents as tolerated, etc. 2. Cardiac murmur She does have a cardiac murmur. She states this is not new. She will be further evaluated with a transthoracic echocardiogram for evidence of underlying valvular heart disease. 3. Hyperlipidemia She believes she tolerated simvastatin therapy but could not afford it. She has now been placed on pravastatin therapy. Hopefully she will tolerate this and be able to afford it. 4. Hypertension She will continue to have her blood pressure monitored and her medications adjusted as needed. 5. Anemia The etiology of her anemia is unclear. She has been undergoing evaluation care by hematology/oncology. Thus far there does not appear to be an obvious hemorrhagic issue and she appears to be tolerating her antiplatelet and anticoagulant therapy. She will be monitored for any concerns. Comment: The above was discussed with the patient, her family members present, and the [facility] ED staff. This note was generated using a voice recognition system and there may be incorrect words, spelling or punctuation that were not noted when reviewing the office note prior to saving.
--- NOTE | 2019-03-08 12:34 | CON.PCM_ITS ---
Problem List (1) NSTEMI (non-ST elevated myocardial infarction) Status: Acute (2) Murmur, cardiac Status: Acute (3) Hyperlipidemia Status: Chronic (4) Hypertension Status: Chronic (5) Anemia Status: Chronic Qualifiers: Anemia type: unspecified type Qualified Code(s): D64.9 - Anemia, unspecified Reason for Consult Date of Consultation: 03/08/19 History of Present Illness: The patient is a 68 year old white female who presents for evaluation of an acute non-ST segment elevation SD superimposed upon hyperlipidemia, hypertension, and anemia of uncertain etiology. The patient states she has been having symptoms on and off which she has described as indigestion or heartburn associated with nausea, no emesis, shortness of breath/dyspnea, and potentially diaphoresis. Based upon her on and off symptoms she subsequently presented to the [facility] emergency department for further evaluation. Upon evaluation she was having symptoms. She was treated with aspirin therapy and nitroglycerin sublingual therapy. She states her symptoms abated and have not returned. However her troponin I level was abnormal at that time. Her ECG demonstrated sinus rhythm with a septal SD pattern of indeterminate age cannot be excluded and an inferior SD pattern of indeterminate age cannot be excluded as well as ST and T wave changes potentially compatible with lateral myocardial ischemia. She was treated medically with a combination of aspirin, antiplatelets, anticoagulants, and placed in the PCU for further evaluation. Her repeat troponin I level has remained positive. Her repeat ECG has demonstrated sinus rhythm with a septal SD pattern of indeterminate age cannot be excluded and T wave changes compatible with myocardial ischemia in the inferior distribution. She has denied orthopnea or PND or lower extremity peripheral pitting edema. She also has denied any near-syncope or syncope. She states she has been told she has a cardiac murmur but does not recall undergoing any cardiovascular evaluation for this in the past. She has been undergoing evaluation for anemia. This is included hematology oncology evaluation with bone marrow aspirate/biopsy. She states she has yet to be given a definitive diagnosis for her anemia. She notes that she has been intolerant to medications such as atorvastatin in the past. She believes she tolerated simvastatin but states that she could not afford the prescription. [] Past Medical History Allergies/Adverse Reactions: Allergies atorvastatin [From Lipitor] Adverse Reaction (Verified 02/10/19 11:41) Other muscle pain simvastatin Adverse Reaction (Verified 02/10/19 11:41) Other muscle pain Home Medications: Ambulatory Orders Medication Instructions Recorded Fluoxetine HCl 60 mg PO DAILY 01/11/17 Losartan Potassium 100 mg PO DAILY 01/11/17 Multivitamin with Minerals 1 each PO DAILY 03/08/19 [Multiple Vitamin] [place]-3 Fatty Acids/Fish Oil [Fish 1 each PO DAILY 03/08/19 Oil 1,000 mg Capsule] Past Medical History (Chronic Problems): Chronic Problems (Last Reviewed 06/05/18 @ 17:06 by Maria Esther Arora) History of anemia (Chronic) Hyperlipidemia (Chronic) Hypertension (Chronic) Chronic pain (Chronic) History of cholelithiasis (Chronic) Chronic back pain (Chronic) Anemia (Chronic) Degenerative disc disease, cervical (Chronic) Surgical History: cholecystectomy, hysterectomy, rotator cuff repair, - - *Family History Maternal Family History: Family History (Last Reviewed 03/08/19 @ 04:00 by Mitchell Perdue MD) Mother Dementia DVT (deep venous thrombosis) Father CVA (cerebral vascular accident) Brother Hypertension Sister Hypertension History Items: - - mother with dementia Sibling Family History: Family History (Last Reviewed 03/08/19 @ 04:00 by Mitchell Perdue MD) Mother Dementia DVT (deep venous thrombosis) Father CVA (cerebral vascular accident) Brother Hypertension Sister Hypertension History Items: - - father with stroke Smoking Status: Former smoker - Smoke a little bit when she was age 8-10; where she and his sister used to hide and take few puffs of her father's cigarettes. Alcohol: None Drugs: None Review of Systems - Review of Systems General: Denies: Fever, Night Sweats, Fatigue Cardiovascular: Reports: Chest Discomfort, Chest Discomfort at Rest, Shortness of Breath, Shortness of Breath at Rest, - - Diaphoresis. Denies: Orthopnea, PND, Peripheral Edema, Palpitations, Lightheadedness, Dizziness, Near Syncope, Syncope Respiratory: Reports: Shortness of Breath. Denies: Cough, Sputum Production, Hemoptysis Gastrointestinal: Reports: Indigestion, Heart Burn, Nausea Genitourinary: Denies: Dysuria, Hematuria Skin: Denies: Rash Subjectve: This is a 68-year-old white female who appears to be resting comfortably at the moment in no acute distress. Objective: Vital Signs Temp Pulse Resp BP Pulse Ox 98.0 F 76 16 128/75 H 97 03/08/19 09:55 03/08/19 09:55 03/08/19 09:55 03/08/19 09:55 03/08/19 09:55 Oxygen Flow Rate (L/min) 2 Oxygen Delivery Method Room Air Weight: 160 lb 4.417 oz Body Mass Index (BMI) 27.5 Intake and Output for Last 24 Hours 03/06/19 03/07/19 03/08/19 23:59 23:59 23:59 Intake Total 1096.3 / 1096.3 Balance 1096.3 / 1096.3 General: Awake, Alert, Oriented x 3, Cooperative, No Acute Distress HEENT: Atraumatic, Normocephalic, PERRL, EOMI, Sclera Non Icteric Oral: Moist Mucosa Neck: Supple, Good ROM, No JVD Lungs: Clear to auscultation Cardiovascular: Regular Rhythm, Normal S1, Normal S2 Murmur Murmur: Grade 3/6, Soft, Mid Systolic, LLSB, [place], LVOT Vascular: No Carotid Bruits Abdomen: Bowel Sounds Present, Soft, Non Tender Extremities: No Cyanosis, No Clubbing, No edema Neurological: No Focal Motor or Sensory Deficit Psych/Mental Status: Appropriate 03/08/19 01:37: WBC 5.9, RBC 3.49 L, Hgb 10.7 L, Hct 32.9 L, MCV 94.3, MCH 30.7, MCHC 32.5, RDW 13.2, RDW Differential 43.5, Plt Count 253, MPV 10.2, Immature Gran % (Auto) 0.500, Neut % (Auto) 57.1, Lymph % (Auto) 31.8, [place] % (Auto) 8.4, Eos % (Auto) 1.9, Baso % (Auto) 0.3, Absolute Neuts (auto) 3.4, Total Counted Not Reportable 03/08/19 01:37: Sodium 143, Potassium 3.5, Chloride 109 H, Carbon Dioxide 25.0, Anion Gap 9, BUN 33 H, Creatinine 1.22 H, Est GFR (MDRD) Af Amer 56 L, Est GFR (MDRD) Non-Af 46 L, BUN/Creatinine Ratio 27.0 H, Glucose 142 H, Calcium 8.4 L, Troponin I 1.040 H* 03/08/19 01:37: APTT 23.5 L 03/08/19 04:35: Hemoglobin A1c 5.5 03/08/19 04:35: Triglycerides 467 H, Cholesterol 252 H, LDL Cholesterol TNP, VLDL Cholesterol TNP, HDL Cholesterol 39 L 03/08/19 04:35: Troponin I 0.822 H* 03/08/19 07:44: Troponin I 1.510 H* 03/08/19 08:45: APTT 47.2 H 03/08/19 11:10: Troponin I 1.970 H* Rhythm: Sinus rhythm EKG: As noted above CXR: Preliminary evaluation: No acute cardiopulmonary disease process appreciated: Please see official report Assessment/Plan 1. Acute non-ST segment elevation SD The patient has appeared to experience an acute non-ST segment elevation SD. At the present time she appears to be symptomatically improved. She will continue to have her cardiac enzymes and ECG followed. She will have an echocardiogram to assess her ventricular wall motion and systolic function. She is also been recommended for further evaluation with diagnostic cardiac catheterization. The procedure risks were discussed with her and she was agreeable to this approach. In the interim she will continue medical therapy. This will include agents such as aspirin, antiplatelets, anticoagulants, beta-blockers, lipid-lowering agents as tolerated, etc. 2. Cardiac murmur She does have a cardiac murmur. She states this is not new. She will be further evaluated with a transthoracic echocardiogram for evidence of underlying valvular heart disease. 3. Hyperlipidemia She believes she tolerated simvastatin therapy but could not afford it. She has now been placed on pravastatin therapy. Hopefully she will tolerate this and be able to afford it. 4. Hypertension She will continue to have her blood pressure monitored and her medications adjusted as needed. 5. Anemia The etiology of her anemia is unclear. She has been undergoing evaluation care by hematology/oncology. Thus far there does not appear to be an obvious hemorrhagic issue and she appears to be tolerating her antiplatelet and anticoagulant therapy. She will be monitored for any concerns. Comment: The above was discussed with the patient, her family members present, and the [facility] ED staff. This note was generated using a voice recognition system and there may be incorrect words, spelling or punctuation that were not noted when reviewing the office note prior to saving.
[2019-03-08] MEDS: Metoprolol Tartrate 25 MG Tablet PO ×2 (13:38→21:36)
[2019-03-08 16:41] LABS: Partial Thromboplast Time 87.8 Seconds (24.1-36.2)
[2019-03-08 22:51] LABS: Bacteria 0 SEEN /hpf (None Seen); Mucous, Urine 0 SEEN /hpf (<or=2+); Red Blood Cells-Urine 0 SEEN /hpf (0-5); Squamous Epithelial Cells - UA 0 SEEN /hpf (5-10); White Blood Cells 0 SEEN /hpf (0-5)
[2019-03-08 22:52] LABS: Color, Urine Yellow (Yellow); Glucose, Dipstick Normal (Normal); Ketone-Dipstick Negative (Negative); Leukocyte Esterase-Dipstick Negative /ul (Negative); Nitrite-Dipstick Negative (Negative); Occult Blood-Urine Negative /ul (Negative); Protein-Dipstick Negative (Negative); Specific Gravity, Urine 1.005 (1.002-1.030); Urine Bilirubin Dipstick Negative (Negative); Urine Clarity Clear (Clear); Urine Urobilinogen Normal (Normal)
[2019-03-08 23:44] LABS: Partial Thromboplast Time 89.8 Seconds (24.1-36.2)
[2019-03-09] VITALS (25 sets, daily range): BP systolic 99–141; BP diastolic 42–85; PULSE 52–66; RESP 13–18; TEMP 36.4–37; O2SAT 94–98
[2019-03-09 05:45] LABS: Absolute Neutrophil Count 3.1 X10^3/uL (2.0-7.7); Basophil# 0.02 X10^3/uL; Basophil% 0.3 % (0-1); Eosinophil# 0.09 X10^3/uL; Eosinophils% 1.4 % (0-5); Hematocrit 33.1 % (37-47); Hemoglobin 10.7 g/dl (12.0-15.0); Lymphocyte % 44.5 % (19-41); Mean Corp Hgb Conc 32.3 g/gl (32-36); Mean Corpuscular Hgb 30.3 pg (27.0-32.0); Mean Corpuscular Volume 93.8 fL (81-99); Mean Platelet Vol. 10.1 fl (6.2-12.0); Monocyte% 6.1 % (0-10); Neutrophil # 3.11 X10^3/uL (2.7-7.7); Neutrophil % 47.7 % (47-70); Platelet Count 254 K/mm3 (150-450); Red Blood Count 3.53 M/mm3 (4.2-5.4); White Blood Count 6.5 K/mm3 (4.4-11.0)
[2019-03-09] MEDS: TICAGRELOR 90 MG TABLET PO ×2 (05:53→21:13)
[2019-03-09] MEDS: Metoprolol Tartrate 25 MG Tablet PO ×2 (05:53→21:12)
[2019-03-09] MEDS: Aspirin E.C. 81 MG Tablet PO (05:53)
[2019-03-09 05:55] LABS: Anion Gap 6 (5-15); BUN 19 mg/dL (7-18); BUN/Creat Ratio 19.4 RATIO (10-20); Calcium,Total 8.7 mg/dL (8.5-10.1); Chloride 110 mmol/L (98-107); Creatinine, Serum 0.98 mg/dL (0.55-1.02); EST Glomerular Filtration Rate 60 mL/min (>60); Est Glom Filt Rate - Afr Amer 72 mL/min (>60); Estimated Creatinine Clearance 46.13 ml/min; Glucose 98 mg/dL (74-106); Potassium 3.9 mmol/L (3.5-5.1); Sodium Level 143 mmol/L (136-145)
--- NOTE | 2019-03-09 05:55 | EKG12_ITS ---
Test Reason : CP ADMISSION Blood Pressure : / mmHG Vent. Rate : 067 BPM Atrial Rate : 067 BPM P-R Int : 226 ms QRS Dur : 086 ms QT Int : 442 ms P-R-T Axes : 058 006 -09 degrees QTc Int : 467 ms Sinus rhythm with 1st degree A-V block Septal infarct , age undetermined Abnormal ECG When compared with ECG of 08-MAR-2019 01:32, MANUAL COMPARISON REQUIRED, DATA IS UNCONFIRMED Confirmed by WILNER SUERO, JE ([id number]), movie editor MACY MAHONEY ([id number]) on 03/10/2019 11:19:25 AM Referred By: Mitchell Perdue Confirmed By:JE DARBY MD
[2019-03-09 05:58] LABS: Partial Thromboplast Time 40.5 Seconds (24.1-36.2)
[2019-03-09 06:10] LABS: POSITIVE COUNT NO; POSITIVE DIFFERENTIAL NO; POSITIVE MORPHOLOGY NO
--- NOTE | 2019-03-09 08:48 | CASEMGMT ---
According to the [facility] website, the following are in-network tertiary facilities: [facility], [place], [facility], [facility], [facility], [facility], [facility], [place], [facility], and . Anni JETT CM
[2019-03-09] MEDS: Acetaminophen 325 MG Tablet 650 MG PO (09:09)
--- NOTE | 2019-03-09 10:19 | NURSING ---
Report called to Gisela in [employer].
--- NOTE | 2019-03-09 11:17 | NURSING ---
Report given to Varinder [facility] [facility].
--- NOTE | 2019-03-09 11:22 | PCM.PN.HOSP ---
Patient Problems: Active and Suspected Problems (Last Reviewed 06/05/18 @ 17:06 by Maria Esther Arora) Non-STEMI (non-ST elevated myocardial infarction) (Acute) NSTEMI (non-ST elevated myocardial infarction) (Acute) Murmur, cardiac (Acute) Subjective: Patient is a 68-year-old lady with history of dyslipidemia, hypertension who presented with chest pain. Subsequent evaluation came back consistent with acute non-STEMI management protocol with consultation placed to cardiology Objective: GENERAL: cooperative HEENT: Atraumatic; EYES; Anicteric, Normal Conjunctiva NECK; supple, normal thyroid, RESPIRATORY: Diminished to auscultation bilaterally, CARDIOVASCULAR: Regular S1 S2, GI: soft, non-tender, normoactive bowel sounds, : No Renal angle tenderness; EXTREMITIES: No edema, no clubbing, MUSCULOSKELETAL: No Joint Tenderness; NEURO: Awake; no lateralizing signs. SKIN: No Rash PSYCH; Normal affect Vitals/I&O's: Vital Signs Temp Pulse Resp BP Pulse Ox 97.9 F 52 L 16 116/73 96 03/09/19 07:44 03/09/19 07:44 03/09/19 07:44 03/09/19 07:44 03/09/19 07:44 Oxygen Flow Rate (L/min) 2 Oxygen Delivery Method Room Air Weight: 72.7 kg Body Mass Index (BMI) 27.5 Intake and Output for Last 24 Hours 03/07/19 03/08/19 03/09/19 23:59 23:59 23:59 Intake Total 1678.4 / 1678.4 Balance 1678.4 / 1678.4 Laboratory Results 03/08/19 11:10: Troponin I 1.970 H* 03/08/19 14:30: Troponin I 2.190 H* 03/08/19 15:50: APTT 87.8 H 03/08/19 17:19: Troponin I 2.010 H* 03/08/19 20:00: Urine Color Yellow, Urine Clarity Clear, Urine pH 7.0, Ur Specific [place] 1.005, Urine Protein Negative, Urine Glucose (UA) Normal, Urine Ketones Negative, Urine Occult Blood Negative, Urine Nitrite Negative, Urine Bilirubin Negative, Urine Urobilinogen Normal, Ur Leukocyte Esterase Negative, Urine RBC 0 SEEN, Urine WBC 0 SEEN, Ur Squamous Epith Cells 0 SEEN, Urine Bacteria 0 SEEN, Urine Mucus 0 SEEN 03/08/19 23:06: APTT 89.8 H 03/09/19 05:30: Sodium 143, Potassium 3.9, Chloride 110 H, Carbon Dioxide 27.0, Anion Gap 6, BUN 19 H, Creatinine 0.98, Estim Creat Clear Calc 46.13, Est GFR (MDRD) Af Amer 72, Est GFR (MDRD) Non-Af 60, BUN/Creatinine Ratio 19.4, Glucose 98, Calcium 8.7 03/09/19 05:30: WBC 6.5, RBC 3.53 L, Hgb 10.7 L, Hct 33.1 L, MCV 93.8, MCH 30.3, MCHC 32.3, RDW 13.0, RDW Differential 43.0, Plt Count 254, MPV 10.1, Immature Gran % (Auto) 0.000, Neut % (Auto) 47.7, Lymph % (Auto) 44.5 H, [place] % (Auto) 6.1, Eos % (Auto) 1.4, Baso % (Auto) 0.3, Absolute Neuts (auto) 3.1, Absolute Lymphs (auto) 2.90, Total Counted Not Reportable 03/09/19 05:30: PT 13.0, INR 1.0, APTT 40.5 H Current Medications Acetaminophen (Tylenol) 650 mg PO Q6H PRN PRN PRN Reason: Mild pain 1-3/Temp > 100.7 F Last Admin: 03/09/19 09:09 Dose: 650 mg Aspirin (Ecotrin) 81 mg PO DAILY@0800 [facility] Last Admin: 03/09/19 05:53 Dose: 81 mg Dextrose (D50w Syringe) 0 gm IV X1 PRN; Protocol PRN Reason: Hypoglycemia Fluoxetine HCl (Prozac) 60 mg PO DAILY [facility] Last Admin: 03/08/19 09:50 Dose: 60 mg Glucagon () 1 mg IM .X1 PRN PRN Reason: Hypoglycemia Heparin Sodium (Porcine) (Heparin Na) 0 unit IV UD PRN; Protocol Last Admin: 03/08/19 09:45 Dose: 1,000 unit Heparin Sodium/Dextrose () 25,000 units in 250 mls @ 11 mls/hr IV .[id number] [facility]; Protocol Last Admin: 03/08/19 21:40 Dose: Not Given Sodium Chloride () 1,000 mls @ 0 mls/hr IV .Q0M [facility] Metoprolol Tartrate (Lopressor (Beta Denis)) 25 mg PO BID [facility] Last Admin: 03/09/19 05:53 Dose: 25 mg Morphine Sulfate () 2 mg IV Q3H PRN PRN PRN Reason: Severe Pain (7-10/10) Nitroglycerin (Nitrostat) 0.4 mg SUBLINGUAL Q5M PRN PRN Reason: CARDIAC/CHEST PAIN Ondansetron HCl (Zofran) 4 mg IV Q8H PRN PRN PRN Reason: NAUSEA/VOMITING Pravastatin Sodium (Pravachol) 40 mg PO QHS [facility] Last Admin: 03/08/19 04:20 Dose: 40 mg Sodium Chloride () 5 - 15 ml IV UD PRN PRN Reason: SALINE FLUSH Ticagrelor (Brilinta) 90 mg PO BID [facility] Last Admin: 03/09/19 05:53 Dose: 90 mg Medical Necessity - Tobacco Use Smoking Status: Former smoker - Smoke a little bit when she was age 8-10; where she and his sister used to hide and take few puffs of her father's cigarettes. Assessment/Plan All Active Problems (Last Reviewed 06/05/18 @ 17:06 by Maria Esther Arora) Cellulitis of right hand (Acute) Cat bite of finger (Acute) Segmental and somatic dysfunction of cervical region (Acute) Segmental and somatic dysfunction of thoracic region (Acute) Cervicogenic headache (Acute) Non-STEMI (non-ST elevated myocardial infarction) (Acute) NSTEMI (non-ST elevated myocardial infarction) (Acute) Murmur, cardiac (Acute) Patient is a 68-year-old lady with history of dyslipidemia, hypertension who presented with chest pain. Subsequent evaluation came back consistent with acute non-STEMI management protocol with consultation placed to cardiology 1. Acute non-STEMI: Patient was admitted to monitored bed management protocol with consultation placed to cardiology. Patient underwent left heart catheterization on 03/09/2019 with PCI/RAFAEL to RCA lesion 2. Hypertension-blood pressure controlled, home medications continued with dose adjustment as needed 3. Dyslipidemia-patient is on statin therapy, continued at home dose 4. Depression patient is on Prozac 5. Dehydration improved with rehydration 6. DVT prophylaxis on heparin Active Medications Acetaminophen (Tylenol) 650 mg PO Q6H PRN PRN PRN Reason: Mild pain 1-3/Temp > 100.7 F Last Admin: 03/09/19 09:09 Dose: 650 mg Aspirin (Ecotrin) 81 mg PO DAILY@0800 [facility] Last Admin: 03/09/19 05:53 Dose: 81 mg Dextrose (D50w Syringe) 0 gm IV X1 PRN; Protocol PRN Reason: Hypoglycemia Fluoxetine HCl (Prozac) 60 mg PO DAILY [facility] Last Admin: 03/08/19 09:50 Dose: 60 mg Glucagon () 1 mg IM .X1 PRN PRN Reason: Hypoglycemia Heparin Sodium (Porcine) (Heparin Na) 0 unit IV UD PRN; Protocol Last Admin: 03/08/19 09:45 Dose: 1,000 unit Heparin Sodium/Dextrose () 25,000 units in 250 mls @ 11 mls/hr IV .[id number] [facility]; Protocol Last Admin: 03/08/19 21:40 Dose: Not Given Sodium Chloride () 1,000 mls @ 0 mls/hr IV .Q0M [facility] Metoprolol Tartrate (Lopressor (Beta Denis)) 25 mg PO BID [facility] Last Admin: 03/09/19 05:53 Dose: 25 mg Morphine Sulfate () 2 mg IV Q3H PRN PRN PRN Reason: Severe Pain (7-10/10) Nitroglycerin (Nitrostat) 0.4 mg SUBLINGUAL Q5M PRN PRN Reason: CARDIAC/CHEST PAIN Ondansetron HCl (Zofran) 4 mg IV Q8H PRN PRN PRN Reason: NAUSEA/VOMITING Pravastatin Sodium (Pravachol) 40 mg PO QHS [facility] Last Admin: 03/08/19 04:20 Dose: 40 mg Sodium Chloride () 5 - 15 ml IV UD PRN PRN Reason: SALINE FLUSH Ticagrelor (Brilinta) 90 mg PO BID [facility] Last Admin: 03/09/19 05:53 Dose: 90 mg Code Visit Inpatient E&M: [id number] [facility] Hosp L3
--- NOTE | 2019-03-09 11:26 | PN_ITS ---
Patient Problems: Active and Suspected Problems (Last Reviewed 06/05/18 @ 17:06 by aMria Esther Arora) Non-STEMI (non-ST elevated myocardial infarction) (Acute) NSTEMI (non-ST elevated myocardial infarction) (Acute) Murmur, cardiac (Acute) Subjective: Patient is a 68-year-old lady with history of dyslipidemia, hypertension who pre sented with chest pain. Subsequent evaluation came back consistent with acute non-STEMI management protocol with consultation placed to cardiology Objective: GENERAL: cooperative HEENT: Atraumatic; EYES; Anicteric, Normal Conjunctiva NECK; supple, normal thyroid, RESPIRATORY: Diminished to auscultation bilaterally, CARDIOVASCULAR: Regular S1 S2, GI: soft, non-tender, normoactive bowel sounds, : No Renal angle tenderness; EXTREMITIES: No edema, no clubbing, MUSCULOSKELETAL: No Joint Tenderness; NEURO: Awake; no lateralizing signs. SKIN: No Rash PSYCH; Normal affect Vitals/I&O's: Vital Signs Temp Pulse Resp BP Pulse Ox 97.9 F 52 L 16 116/73 96 03/09/19 07:44 03/09/19 07:44 03/09/19 07:44 03/09/19 07:44 03/09/19 07:44 Oxygen Flow Rate (L/min) 2 Oxygen Delivery Method Room Air Weight: 72.7 kg Body Mass Index (BMI) 27.5 Intake and Output for Last 24 Hours 03/07/19 03/08/19 03/09/19 23:59 23:59 23:59 Intake Total 1678.4 / 1678.4 Balance 1678.4 / 1678.4 Laboratory Results 03/08/19 11:10: Troponin I 1.970 H* 03/08/19 14:30: Troponin I 2.190 H* 03/08/19 15:50: APTT 87.8 H 03/08/19 17:19: Troponin I 2.010 H* 03/08/19 20:00: Urine Color Yellow, Urine Clarity Clear, Urine pH 7.0, Ur Specific [place] 1.005, Urine Protein Negative, Urine Glucose (UA) Normal, Urine Ketones Negative, Urine Occult Blood Negative, Urine Nitrite Negative, Urine Bilirubin Negative, Urine Urobilinogen Normal, Ur Leukocyte Esterase Negative, Urine RBC 0 SEEN, Urine WBC 0 SEEN, Ur Squamous Epith Cells 0 SEEN, Urine Bacteria 0 SEEN, Urine Mucus 0 SEEN 03/08/19 23:06: APTT 89.8 H 03/09/19 05:30: Sodium 143, Potassium 3.9, Chloride 110 H, Carbon Dioxide 27.0, Anion Gap 6, BUN 19 H, Creatinine 0.98, Estim Creat Clear Calc 46.13, Est GFR (MDRD) Af Amer 72, Est GFR (MDRD) Non-Af 60, BUN/Creatinine Ratio 19.4, Glucose 98, Calcium 8.7 03/09/19 05:30: WBC 6.5, RBC 3.53 L, Hgb 10.7 L, Hct 33.1 L, MCV 93.8, MCH 30.3, MCHC 32.3, RDW 13.0, RDW Differential 43.0, Plt Count 254, MPV 10.1, Immature Gran % (Auto) 0.000, Neut % (Auto) 47.7, Lymph % (Auto) 44.5 H, [place] % (Auto) 6.1, Eos % (Auto) 1.4, Baso % (Auto) 0.3, Absolute Neuts (auto) 3.1, Absolute Lymphs (auto) 2.90, Total Counted Not Reportable 03/09/19 05:30: PT 13.0, INR 1.0, APTT 40.5 H Current Medications Acetaminophen (Tylenol) 650 mg PO Q6H PRN PRN PRN Reason: Mild pain 1-3/Temp > 100.7 F Last Admin: 03/09/19 09:09 Dose: 650 mg Aspirin (Ecotrin) 81 mg PO DAILY@0800 [facility] Last Admin: 03/09/19 05:53 Dose: 81 mg Dextrose (D50w Syringe) 0 gm IV X1 PRN; Protocol PRN Reason: Hypoglycemia Fluoxetine HCl (Prozac) 60 mg PO DAILY [facility] Last Admin: 03/08/19 09:50 Dose: 60 mg Glucagon () 1 mg IM .X1 PRN PRN Reason: Hypoglycemia Heparin Sodium (Porcine) (Heparin Na) 0 unit IV UD PRN; Protocol Last Admin: 03/08/19 09:45 Dose: 1,000 unit Heparin Sodium/Dextrose () 25,000 units in 250 mls @ 11 mls/hr IV .[id number] [facility]; Protocol Last Admin: 03/08/19 21:40 Dose: Not Given Sodium Chloride () 1,000 mls @ 0 mls/hr IV .Q0M [facility] Metoprolol Tartrate (Lopressor (Beta Denis)) 25 mg PO BID [facility] Last Admin: 03/09/19 05:53 Dose: 25 mg Morphine Sulfate () 2 mg IV Q3H PRN PRN PRN Reason: Severe Pain (7-10/10) Nitroglycerin (Nitrostat) 0.4 mg SUBLINGUAL Q5M PRN PRN Reason: CARDIAC/CHEST PAIN Ondansetron HCl (Zofran) 4 mg IV Q8H PRN PRN PRN Reason: NAUSEA/VOMITING Pravastatin Sodium (Pravachol) 40 mg PO QHS [facility] Last Admin: 03/08/19 04:20 Dose: 40 mg Sodium Chloride () 5 - 15 ml IV UD PRN PRN Reason: SALINE FLUSH Ticagrelor (Brilinta) 90 mg PO BID [facility] Last Admin: 03/09/19 05:53 Dose: 90 mg Medical Necessity - Tobacco Use Smoking Status: Former smoker - Smoke a little bit when she was age 8-10; where she and his sister used to hide and take few puffs of her father's cigarettes. Assessment/Plan All Active Problems (Last Reviewed 06/05/18 @ 17:06 by Maria Esther Arora) Cellulitis of right hand (Acute) Cat bite of finger (Acute) Segmental and somatic dysfunction of cervical region (Acute) Segmental and somatic dysfunction of thoracic region (Acute) Cervicogenic headache (Acute) Non-STEMI (non-ST elevated myocardial infarction) (Acute) NSTEMI (non-ST elevated myocardial infarction) (Acute) Murmur, cardiac (Acute) Patient is a 68-year-old lady with history of dyslipidemia, hypertension who presented with chest pain. Subsequent evaluation came back consistent with acute non-STEMI management protocol with consultation placed to cardiology 1. Acute non-STEMI: Patient was admitted to monitored bed management protocol with consultation placed to cardiology. Patient underwent left heart catheterization on 03/09/2019 with PCI/RAFAEL to RCA lesion 2. Hypertension-blood pressure controlled, home medications continued with dose adjustment as needed 3. Dyslipidemia-patient is on statin therapy, continued at home dose 4. Depression patient is on Prozac 5. Dehydration improved with rehydration 6. DVT prophylaxis on heparin Active Medications Acetaminophen (Tylenol) 650 mg PO Q6H PRN PRN PRN Reason: Mild pain 1-3/Temp > 100.7 F Last Admin: 03/09/19 09:09 Dose: 650 mg Aspirin (Ecotrin) 81 mg PO DAILY@0800 [facility] Last Admin: 03/09/19 05:53 Dose: 81 mg Dextrose (D50w Syringe) 0 gm IV X1 PRN; Protocol PRN Reason: Hypoglycemia Fluoxetine HCl (Prozac) 60 mg PO DAILY [facility] Last Admin: 03/08/19 09:50 Dose: 60 mg Glucagon () 1 mg IM .X1 PRN PRN Reason: Hypoglycemia Heparin Sodium (Porcine) (Heparin Na) 0 unit IV UD PRN; Protocol Last Admin: 03/08/19 09:45 Dose: 1,000 unit Heparin Sodium/Dextrose () 25,000 units in 250 mls @ 11 mls/hr IV .[id number] [facility]; Protocol Last Admin: 03/08/19 21:40 Dose: Not Given Sodium Chloride () 1,000 mls @ 0 mls/hr IV .Q0M [facility] Metoprolol Tartrate (Lopressor (Beta Denis)) 25 mg PO BID [facility] Last Admin: 03/09/19 05:53 Dose: 25 mg Morphine Sulfate () 2 mg IV Q3H PRN PRN PRN Reason: Severe Pain (7-10/10) Nitroglycerin (Nitrostat) 0.4 mg SUBLINGUAL Q5M PRN PRN Reason: CARDIAC/CHEST PAIN Ondansetron HCl (Zofran) 4 mg IV Q8H PRN PRN PRN Reason: NAUSEA/VOMITING Pravastatin Sodium (Pravachol) 40 mg PO QHS [facility] Last Admin: 03/08/19 04:20 Dose: 40 mg Sodium Chloride () 5 - 15 ml IV UD PRN PRN Reason: SALINE FLUSH Ticagrelor (Brilinta) 90 mg PO BID [facility] Last Admin: 03/09/19 05:53 Dose: 90 mg Code Visit Inpatient E&M: [id number] [facility] L3
--- NOTE | 2019-03-09 11:35 | CL.I_ITS ---
Patient Name: GIO BLEVINS Study Date: 03/09/2019 Performing: Jesus Renee MD Ht: 64.17 inches 163 cm : 1950 Wt: 160.94 lbs 73 kg Age: 68 Gender: female BSA: 1.79 PROCEDURE(S) PERFORMED [id number] W OR WO PTCA, SINGLE CORONARY ARTERY CLINICAL PROFILE AND CO-MORBIDITIES Patient presents with NSTEMI for urgent cardiac cath Indications: Worsening Angina, Suspected CAD, Valvular Disease, ACS <= 24 hrs, New Onset Angina < = 2 months, Suspected CAD, Valvular Disease Heart Failure: None Stress/Imaging Stress/Image Study Performed: No Stress/Image Study Performed: No Angina Classification Anginal Classification w/in 2 Weeks: CCS III CAD Presentations: Non-STEMI. Non-STEMI. Symptom onset Date/Time: 03/08/2019 Time Not Available Comorbidities/Risk Factors: Hypertension Dyslipidemia CONCLUSIONS Successful PTCA/RAFAEL to mid RCA with a 3.0 x 20 Promus Syergy at 16 fernando; 85%-->0%, no dissection. Manual sheath removal given spinal stimulator and tortous iliacs. RECOMMENDATIONS Highly recommend quitting all tobacco products Follow up with primary comedian Risk factor modification ASA Indefinitley Plavix for at least 12 months Routine post interventional care Refer for Outpatient Cardiac Rehab Manual sheath removal per protocol Follow up with Dr. Girard DESCRIPTION OF PROCEDURE The patient arrived to the procedure lab. The risks and benefits of the procedure as well as a full d escription of our services here and current unavailability of surgical backup were fully explained to the patient and/or their significant other prior to the catheterization. The Timeout was completed, verifying the correct patient and procedure. The patient's procedural site was prepped and draped in the usual fashion. Local anesthetic was given subcutaneously to right groin region with Lidocaine 2% Using a modified Seldinger technique,arterial access was obtained via the right femoral artery, a 4Fr sheath was inserted Left Coronary Artery selective angiography was performed in multiple views using a 4 Fr. JL5 catheter. Right Coronary Artery selective angiography was then performed in multiple vie ws using a 4 Fr. 3DRC catheter. Left Ventriculography was performed in [place]DER[place] projection using a 4 Fr. P igtail catheter.The images were reviewed and options discussed. A decision was then made to proceed with an Intervention, IVUS or other adjunct procedure. Arterial sheath was exchanged for a 6 Fr Sheath, 45cm. 6f HS1 Guide catheter was inserted and eng aged into the RCA. Angiogram performed pre balloon dilatation. BMW Guide wire was advanced to the RCA . 2.0 x 12 Emerge Balloon catheter was advanced across lesion in the right coronary, mid. PTCA balloo n inflated at 8 atms for 16 secs. 3.0 x 20 synergy Drug Eluting stent was advanced across the lesion in the right coronary, mid. Angiogram performed post stent deployment. The arterial sheath was exch anged to a standard 6F, 11cm sheath. The arterial sheath was sutured in place and capped INTERVENTION INFORMATION LESION SITE: RCA (Mid) Lesion Complexity: High/C, lesion at bifurcation: No, thrombus present: No, lesion length: 20 mm, cul prit lesion: Yes Pre Stenosis: 85 % Pre intervention JULES flow: 3 PROCEDURE: Drug Eluting Stent with pre dilatation. Post Stenosis: 0 % Post intervention JULES flow: 3 Lesion Devices: Rangel .014 BMW [place] Straight 190cm Slime Sandwichtronic 6 Fr HS1 100cm Guide Catheter Messi Sci EMERGE MR 2.00x12 BALLOON Messi Sci Synergy MR RAFAEL 3.00x20 COMPLICATIONS No Complications PROCEDURE MEDICATIONS Versed 1 mg IV Oxygen: 2 L/min via nasal cannula Heparin 6000 unit(s) IV 03/09/2019 11:11:49 Nitro 200 mcg IC 03/09/2019 11:12:11 Nitro 200 mcg IC 03/09/2019 11:12:11 IV Bolus: .9 NaCl 250 ml total 03/09/2019 11:25:09 IV Fluids: .9 NaCl increased to wide open 03/09/2019 11:13:24 IV Fluids: .9 NaCl decreased to 150 ml/hr 03/09/2019 11:25:35 SUMMARY OF HEMODYNAMIC DATA Time AIR REST ECG 10:48:51 AO 138/74 (99) SA 11:00:41 LV 129/15, 28 11:06:31 LV 136/16, 27 11:06:39 LV 146/12, 30 11:07:36 LVp 148/11, 29 11:07:50 AOp 145/72 (100) 11:07:55 Signed By Jesus Renee MD On 03/09/2019 11:34:32 Jesus Renee MD
[2019-03-09] MEDS: 0.9% Normal Saline 1,000 ML 150 ML IV (12:00)
--- NOTE | 2019-03-09 12:01 | EKG12_ITS ---
Test Reason : AM Blood Pressure : / mmHG Vent. Rate : 055 BPM Atrial Rate : 055 BPM P-R Int : 216 ms QRS Dur : 084 ms QT Int : 456 ms P-R-T Axes : 043 000 -32 degrees QTc Int : 436 ms Sinus bradycardia with 1st degree A-V block Septal infarct , age undetermined T-Wave Abnormality: Consider Inferior Ischemia Abnormal ECG Confirmed by RAZA SUERO, KERRY ([id number]), purchase request editor MACY MAHONEY ([id number]) on 03/12/2019 1:40:15 PM Referred By: Mitchell Perdue Confirmed By:KERRY PERSON MD
[2019-03-09 12:05] LABS: ACT Activated Clotting Time 180 sec (74-137)
--- NOTE | 2019-03-09 13:11 | PCM.PN.CARD ---
Subjectve: The patient is now status post diagnostic cardiac catheterization. She was found to have angiographically significant RCA disease. She underwent RCA PCI. At the present time she appears without obvious adverse event. Objective: Vital Signs Temp Pulse Resp BP Pulse Ox 98.3 F 57 L 15 136/76 H 97 03/09/19 11:45 03/09/19 13:00 03/09/19 13:00 03/09/19 13:00 03/09/19 13:00 Oxygen Flow Rate (L/min) 2 Oxygen Delivery Method Room Air Weight: 160 lb 4.417 oz Body Mass Index (BMI) 27.5 Intake and Output for Last 24 Hours 03/07/19 03/08/19 03/09/19 23:59 23:59 23:59 Intake Total 1678.4 / 1678.4 Balance 1678.4 / 1678.4 General: Awake, Alert, Oriented x 3, Cooperative, No Acute Distress HEENT: Atraumatic, Normocephalic, PERRL, EOMI, Sclera Non Icteric Oral: Moist Mucosa Neck: Supple, Good ROM, No JVD Lungs: Clear to auscultation Cardiovascular: Regular Rhythm, Normal S1, Normal S2 Murmur Murmur: Grade 3/6, Soft, Mid Systolic, LLSB, [place], LVOT Vascular: Normal Femoral Pulses Abdomen: Bowel Sounds Present, Soft, Non Tender Extremities: No Cyanosis, No Clubbing, No edema Neurological: No Focal Motor or Sensory Deficit Psych/Mental Status: Appropriate 03/08/19 14:30: Troponin I 2.190 H* 03/08/19 15:50: APTT 87.8 H 03/08/19 17:19: Troponin I 2.010 H* 03/08/19 20:00: Urine Color Yellow, Urine Clarity Clear, Urine pH 7.0, Ur Specific [place] 1.005, Urine Protein Negative, Urine Glucose (UA) Normal, Urine Ketones Negative, Urine Occult Blood Negative, Urine Nitrite Negative, Urine Bilirubin Negative, Urine Urobilinogen Normal, Ur Leukocyte Esterase Negative, Urine RBC 0 SEEN, Urine WBC 0 SEEN 03/08/19 23:06: APTT 89.8 H 03/09/19 05:30: Sodium 143, Potassium 3.9, Chloride 110 H, Carbon Dioxide 27.0, Anion Gap 6, BUN 19 H, Creatinine 0.98, Est GFR (MDRD) Af Amer 72, Est GFR (MDRD) Non-Af 60, BUN/Creatinine Ratio 19.4, Glucose 98, Calcium 8.7 03/09/19 05:30: WBC 6.5, RBC 3.53 L, Hgb 10.7 L, Hct 33.1 L, MCV 93.8, MCH 30.3, MCHC 32.3, RDW 13.0, RDW Differential 43.0, Plt Count 254, MPV 10.1, Immature Gran % (Auto) 0.000, Neut % (Auto) 47.7, Lymph % (Auto) 44.5 H, Door % (Auto) 6.1, Eos % (Auto) 1.4, Baso % (Auto) 0.3, Absolute Neuts (auto) 3.1, Total Counted Not Reportable 03/09/19 05:30: PT 13.0, INR 1.0, APTT 40.5 H Rhythm: Sinus rhythm EKG: Sinus rhythm; T wave abnormality-consider myocardial ischemia-inferior ECHO: Interpretation Summary The study was technically difficult. Left ventricular systolic function is normal. The estimated ejection fraction is 55 %. There is mild mitral annular calcification. Mild-Moderate (1-2+) eccentric mitral valve insufficiency. Mild tricuspid valve insufficiency. Mild aortic stenosis. Right ventricular systolic pressure estimated to be 26 mmHg. Transmitral diastolic flow velocities suggest diastolic dysfunction (pseudonormal pattern). Cardiac Cath: CORONARY ANGIOGRAPHY DOMINANCE: Right Dominant LEFT HEART ASSESSMENT Left Ventricular Ejection Fraction: by LV Gram 55 % Normal LV wall motion Elevated Left Ventricular End Diastolic Pressure LVEDP: 27 mmHg LEFT MAIN: Angiographically normal LEFT ANTERIOR DESCENDING ARTERY: PROX LAD: Mild calcification, Mild luminal irregularities CIRCUMFLEX ARTERY: Mild luminal irregularities RIGHT CORONARY ARTERY: Mild luminal irregularities MID RCA: Eccentric: 90 % Stenosis VALVE FINDINGS: LV pullback procedure: no obvious hemodynamic findings suggestive of hemodynamically significant AV stenosis Normal Mitral Valve function AORTIC ROOT: Angiographically normal PCI: CONCLUSIONS Successful PTCA/RAFAEL to mid RCA with a 3.0 x 20 Promus Syergy at 16 f[address]ando; 85%-->0%, no dissection. Manual sheath removal given spinal stimulator and tortous iliacs. Medical Necessity - Tobacco Use Smoking Status: Former smoker - Smoke a little bit when she was age 8-10; where she and his sister used to hide and take few puffs of her father's cigarettes. Assessment/Plan 1. Acute non-ST segment elevation VA The patient has appeared to experience an acute non-ST segment elevation VA. At the present time she appears to be symptomatically improved. She has undergone evaluation with diagnostic cardiac catheterization. She was found to have angiographically significant appearing RCA disease. She underwent subsequent PCI. She will continue medical management and follow-up. 2. CAD Again she has been found to have underlying CAD. She will need continued risk factor modification medical therapy as deemed appropriate. She will also be considered for not only future outpatient cardiovascular follow-up but outpatient cardiac rehabilitation therapy as well. 3. Cardiac murmur She does have underlying valvular heart disease. Her transthoracic echocardiogram is as noted above. She will continue follow-up by history, exam, and echo cardiographic studies in the future as deemed appropriate. 4. Hyperlipidemia She believes she tolerated simvastatin therapy but could not afford it. She has now been placed on pravastatin therapy. Hopefully she will tolerate this and be able to afford it. 5. Hypertension She will continue to have her blood pressure monitored and her medications adjusted as needed. 6. Anemia The etiology of her anemia is unclear. She has been undergoing evaluation care by hematology/oncology. Thus far there does not appear to be an obvious hemorrhagic issue and she appears to be tolerating her antiplatelet and anticoagulant therapy. She will be monitored for any concerns. Comment: The above was discussed with the patient, her family members present, and the [facility] hospital staff. This note was generated using a voice recognition system and there may be incorrect words, spelling or punctuation that were not noted when reviewing the office note prior to saving.
--- NOTE | 2019-03-09 13:16 | PN.CARD_ITS ---
Subjectve: The patient is now status post diagnostic cardiac catheterization. She was found to have angiographically significant RCA disease. She underwent RCA PCI. At the present time she appears without obvious adverse event. Objective: Vital Signs Temp Pulse Resp BP Pulse Ox 98.3 F 57 L 15 136/76 H 97 03/09/19 11:45 03/09/19 13:00 03/09/19 13:00 03/09/19 13:00 03/09/19 13:00 Oxygen Flow Rate (L/min) 2 Oxygen Delivery Method Room Air Weight: 160 lb 4.417 oz Body Mass Index (BMI) 27.5 Intake and Output for Last 24 Hours 03/07/19 03/08/19 03/09/19 23:59 23:59 23:59 Intake Total 1678.4 / 1678.4 Balance 1678.4 / 1678.4 General: Awake, Alert, Oriented x 3, Cooperative, No Acute Distress HEENT: Atraumatic, Normocephalic, PERRL, EOMI, Sclera Non Icteric Oral: Moist Mucosa Neck: Supple, Good ROM, No JVD Lungs: Clear to auscultation Cardiovascular: Regular Rhythm, Normal S1, Normal S2 Murmur Murmur: Grade 3/6, Soft, Mid Systolic, LLSB, [place], LVOT Vascular: Normal Femoral Pulses Abdomen: Bowel Sounds Present, Soft, Non Tender Extremities: No Cyanosis, No Clubbing, No edema Neurological: No Focal Motor or Sensory Deficit Psych/Mental Status: Appropriate 03/08/19 14:30: Troponin I 2.190 H* 03/08/19 15:50: APTT 87.8 H 03/08/19 17:19: Troponin I 2.010 H* 03/08/19 20:00: Urine Color Yellow, Urine Clarity Clear, Urine pH 7.0, Ur Specific [place] 1.005, Urine Protein Negative, Urine Glucose (UA) Normal, Urine Ketones Negative, Urine Occult Blood Negative, Urine Nitrite Negative, Urine Bilirubin Negative, Urine Urobilinogen Normal, Ur Leukocyte Esterase Negative, Urine RBC 0 SEEN, Urine WBC 0 SEEN 03/08/19 23:06: APTT 89.8 H 03/09/19 05:30: Sodium 143, Potassium 3.9, Chloride 110 H, Carbon Dioxide 27.0, Anion Gap 6, BUN 19 H, Creatinine 0.98, Est GFR (MDRD) Af Amer 72, Est GFR (MDRD) Non-Af 60, BUN/Creatinine Ratio 19.4, Glucose 98, Calcium 8.7 03/09/19 05:30: WBC 6.5, RBC 3.53 L, Hgb 10.7 L, Hct 33.1 L, MCV 93.8, MCH 30.3, MCHC 32.3, RDW 13.0, RDW Differential 43.0, Plt Count 254, MPV 10.1, Immature Gran % (Auto) 0.000, Neut % (Auto) 47.7, Lymph % (Auto) 44.5 H, [place] % (Auto) 6.1, Eos % (Auto) 1.4, Baso % (Auto) 0.3, Absolute Neuts (auto) 3.1, Total Counted Not Reportable 03/09/19 05:30: PT 13.0, INR 1.0, APTT 40.5 H Rhythm: Sinus rhythm EKG: Sinus rhythm; T wave abnormality-consider myocardial ischemia-inferior ECHO: Interpretation Summary The study was technically difficult. Left ventricular systolic function is normal. The estimated ejection fraction is 55 %. There is mild mitral annular calcification. Mild-Moderate (1-2+) eccentric mitral valve insufficiency. Mild tricuspid valve insufficiency. Mild aortic stenosis. Right ventricular systolic pressure estimated to be 26 mmHg. Transmitral diastolic flow velocities suggest diastolic dysfunction (pseudonormal pattern). Cardiac Cath: CORONARY ANGIOGRAPHY DOMINANCE: Right Dominant LEFT HEART ASSESSMENT Left Ventricular Ejection Fraction: by LV Gram 55 % Normal LV wall motion Elevated Left Ventricular End Diastolic Pressure LVEDP: 27 mmHg LEFT MAIN: Angiographically normal LEFT ANTERIOR DESCENDING ARTERY: PROX LAD: Mild calcification, Mild luminal irregularities CIRCUMFLEX ARTERY: Mild luminal irregularities RIGHT CORONARY ARTERY: Mild luminal irregularities MID RCA: Eccentric: 90 % Stenosis VALVE FINDINGS: LV pullback procedure: no obvious hemodynamic findings suggestive of hemodynamically significant AV stenosis Normal Mitral Valve function AORTIC ROOT: Angiographically normal PCI: CONCLUSIONS Successful PTCA/RAFAEL to mid RCA with a 3.0 x 20 Promus Syergy at 16 [address]; 85%-->0%, no dissection. Manual sheath removal given spinal stimulator and tortous iliacs. Medical Necessity - Tobacco Use Smoking Status: Former smoker - Smoke a little bit when she was age 8-10; where she and his sister used to hide and take few puffs of her father's cigarettes. Assessment/Plan 1. Acute non-ST segment elevation [place] The patient has appeared to experience an acute non-ST segment elevation NH. At the present time she appears to be symptomatically improved. She has undergone evaluation with diagnostic cardiac catheterization. She was found to have angiographically significant appearing RCA disease. She underwent subsequent PCI. She will continue medical management and follow-up. 2. CAD Again she has been found to have underlying CAD. She will need continued risk factor modification medical therapy as deemed appropriate. She will also be considered for not only future outpatient cardiovascular follow-up but outpatient cardiac rehabilitation therapy as well. 3. Cardiac murmur She does have underlying valvular heart disease. Her transthoracic echocardiogram is as noted above. She will continue follow-up by history, exam, and echo cardiographic studies in the future as deemed appropriate. 4. Hyperlipidemia She believes she tolerated simvastatin therapy but could not afford it. She has now been placed on pravastatin therapy. Hopefully she will tolerate this and be able to afford it. 5. Hypertension She will continue to have her blood pressure monitored and her medications a djusted as needed. 6. Anemia The etiology of her anemia is unclear. She has been undergoing evaluation care by hematology/oncology. Thus far there does not appear to be an obvious hemorrhagic issue and she appears to be tolerating her antiplatelet and anticoagulant therapy. She will be monitored for any concerns. Comment: The above was discussed with the patient, her family members present, and the [facility] hospital staff. This note was generated using a voice recognition system and there may be incorrect words, spelling or punctuation that were not noted when reviewing the office note prior to saving.
--- NOTE | 2019-03-09 13:44 | CRPHASE1 ---
Patient Communication PHII Cardiac Rehab Discussed with Patient:: Yes Guide to Cardiac Rehab Given to Patient:: Yes Cardiac Rehab Facility Choice List Given to Patient:: Yes Choice Program [facility] CR PHII:: Communication Given to CR, Refer to [facility] Supervisor Stripping:: Jesus Renee Phase II Cardiac Rehab:: Yes Sessions:: 36 sessions - 3 days/wk, 12 weeks Risk Factors/Lifestyle Smoking Status: Former smoker Hx Hypertension: No Hx Diabetes Mellitus Type 1: No Hx Diabetes Mellitus Type 2: No Hx Metabolic Disorders: No Hx Dyslipidemia: Yes Hx Obesity: No Height: 5 ft 4 in - BMI 27.5 Post-Menopausal: Yes Stress: Home/Family Risk Factor for Sedentary Lifestyle: Moderate Risk Family History: Family History (Last Reviewed 03/08/19 @ 04:00 by Mitchell Perdue MD) Mother Dementia DVT (deep venous thrombosis) Father CVA (cerebral vascular accident) Brother Hypertension Sister Hypertension Laboratory Values: Cardiac Rehab Phase I Labs Hemoglobin A1c 5.5 % (4.2-6.3) 03/08/19 04:35 Triglycerides 467 mg/dL (-199) H 03/08/19 04:35 Cholesterol 252 mg/dL (200) H 03/08/19 04:35 LDL Cholesterol TNP 03/08/19 04:35 HDL Cholesterol 39 mg/dL (40-) L 03/08/19 04:35 Phase I Education Given On:: [place], Nutrition, Antiplatelet medication Issues Affecting Care:: None Knowledge of Condition:: Yes Learning Preferences: Verbal, Written - FAMILY AT BEDSIDE Hospital Course Pain Description: Pressure Medical/Surgical History AR:: No Angina:: No CAD:: No Cardiomyopathy:: No Diabetes:: No Hypertension:: No Dyslipidemia:: Yes Discharge/Home/Social Eval Discharge Disposition: Home Cardiac Rehabilitation Info Cardiac Rehabilitation Program Information: Cardiac Rehabilitation is important for patients like you who are recovering from a heart problem. Cardiac rehabilitation programs are recognized as integral to the continued care of the patient with coronary heart disease. The cardiac rehabilitation program is designed to optimize a patient's physical, psychological, and social functioning. Health care management specialist work in cardiac rehabilitation programs and assist you with getting the treatments you need to get stronger and healthier - like exercise, healthy eating habits, and medications. Cardiac rehabilitation has been show to help people with heart problems live longer and have better life enjoyment than people who do not go to cardiac rehabilitation. Please contact the Cardiac Rehabilitation Program at [facility] at in two weeks if you have not heard from them.
--- NOTE | 2019-03-09 13:46 | CRPH1.INSTRU ---
General Education CAD and cardiac anatomy and function:: Patient communicates acknowledgment, Family communicates acknowledgment Explanation of diagnoses and procedures:: Patient communicates acknowledgment, Family communicates acknowledgment Sign/Symptoms of [place]:: Patient communicates acknowledgment, Family communicates acknowledgment Antiplatelet therapy: Patient communicates acknowledgment, Family communicates acknowledgment Proper use of NTG-SL: Not instructed Emergency procedures and activation of EMS: Patient communicates acknowledgment, Family communicates acknowledgment Compliance of all prescribed medications: Patient communicates acknowledgment, Family communicates acknowledgment Smoking Recommendations Include:: Previous smoker; encourage continued cessation Nicotine/Smoking Response Code:: Patient communicates acknowledgment, Family communicates acknowledgment Dyslipidemia Patient Dyslipidemia Risk Factors Are:: Total Cholesterol, Triglycerides, HDL, LDL Recommendations Include:: Lipid profile provided, Reviewed NCEP/ATP guidelines, Therapeutic Lifestyle Change dietary guidelines Dyslipidemia Response Code:: Patient communicates acknowledgment, Family communicates acknowledgment Overweight/Obesity Patient Overweight/Obesity Risk Factors Are:: Overweight = 26-29 Recommendations Include:: Weight loss of 5-10%, Reduced calorie diet, Exercise 5-7 times/week Overweight/Obesity:: Patient communicates acknowledgment, Family communicates acknowledgment Hypertension Patient Hypertension Risk Factors Are:: No documented hx of HTN Heart Disease Heart Disease Response Code:: Patient communicates acknowledgment, Family communicates acknowledgment Diabetes Patient Diabetes Risk Factors Are:: No documented hx of diabetes Metabolic Syndrome Patient Metabolic Syndrome Risk Factors Are [3 of 5]:: Waist circumference > 35 [female] or 40 [male], High triglyceride >150, Low HDL <40 [male] or < 50 [female] Recommendations Include:: Reinforce compliance to risk factor modifications, Encouraged follow-up with Primary Care Physician Metabolic Syndrome Response Code:: Patient communicates acknowledgment, Family communicates acknowledgment Sedentary Patient Sedentary Risk Factors Are:: Lack of regular exercise Recommendations Include:: Aerobic exercise 5-7 times/week for 20-30 minutes continuously, Benefits of regular exercise, Discussed home walking program, Monitored Outpatient Cardiac Rehab Sedentary Response Code:: Patient communicates acknowledgment, Family communicates acknowledgment Stress Recommendations Include:: Identification of stressors, and assessment of coping skills, Stress management techniques Stress Response Code:: Patient communicates acknowledgment, Family communicates acknowledgment
[2019-03-09] MEDS: oxyCODONE 5 MG Tablet PO ×2 (15:27→21:13)
[2019-03-09] MEDS: FLUoxetine 20 MG Capsule 60 MG PO (15:29)
--- NOTE | 2019-03-09 15:33 | CASEMGMT ---
RN CM Assessment Presentation: NSTEMI. PCI/stent of RCA Intro role of CM and purpose of RN CM assessment to patient in room. Pt is awake, alert and able to participate in assessment. Demographics, PCP and Pharmacy verified. Pt anticipates discharge home tomorrow. Denies any needs at this time. PCP:Dr. Barth Specialists: Dr. Girard [facility] [employer] Prescription Benefit: yes. [employer] savings card given to patient and explained. LNOK: Zay Living Arrangements: Lives in mobile home, 4 steps into home. Pt states she is independent in own care needs. Transportation: drives DME: has walker @ home, states she does not use. HHC: none Patient DC goals: home DC PLAN: Home. Liza PARKER RN ACM
--- NOTE | 2019-03-09 17:30 | NURSING ---
groin bruising appears slty darker and has extended just beyond previous border. groin remains soft. pt denies pain/burning. drsg remains dry
--- NOTE | 2019-03-09 18:00 | NURSING ---
altho pt groin remains soft, bruising has extended well beyond previous border. pt c/o slt burning in groin. no hematoma/bruit noted. pressure held 15min. real estate services administratorJOHNIE Bess reviewed site. pt remains supine w/sandbag in place. 1800 Dr. Renee notified above. orders recd.
--- NOTE | 2019-03-09 19:27 | PN.CARD_ITS ---
Subjectve: The patient is status post diagnostic cardiac catheterization. She is awake and alert. She appears to be resting comfortably at the moment. Objective: Vital Signs Temp Pulse Resp BP Pulse Ox 98.3 F 57 L 16 104/59 L 96 03/09/19 16:00 03/09/19 19:00 03/09/19 19:00 03/09/19 19:00 03/09/19 19:00 Oxygen Flow Rate (L/min) 2 Oxygen Delivery Method Room Air Weight: 160 lb 4.417 oz Body Mass Index (BMI) 27.5 Intake and Output for Last 24 Hours 03/07/19 03/08/19 03/09/19 23:59 23:59 23:59 Intake Total 1678.4 / 1678.4 1236 / 1236 Output Total 540 / 540 Balance 1678.4 / 1678.4 696 / 696 General: Awake, Alert, Oriented x 3, Cooperative, No Acute Distress HEENT: Atraumatic, Normocephalic, PERRL, EOMI Oral: Moist Mucosa Neck: Supple, Good ROM, No JVD Lungs: Clear to auscultation Cardiovascular: Regular Rhythm, Normal S1, Normal S2 Murmur Murmur: Grade 3/6, Soft, Mid Systolic, LLSB, [place], LVOT Vascular: Normal Femoral Pulses Abdomen: Bowel Sounds Present, Soft, Non Tender Extremities: No edema, - - Right inguinal area: Positive ecchymoses; right femoral pulse 2+/4+; bruits negative; hematoma negative Neurological: No Focal Motor or Sensory Deficit Psych/Mental Status: Appropriate 03/08/19 20:00: Urine Color Yellow, Urine Clarity Clear, Urine pH 7.0, Ur Specific [place] 1.005, Urine Protein Negative, Urine Glucose (UA) Normal, Urine Ketones Negative, Urine Occult Blood Negative, Urine Nitrite Negative, Urine Bilirubin Negative, Urine Urobilinogen Normal, Ur Leukocyte Esterase Negative, Urine RBC 0 SEEN, Urine WBC 0 SEEN 03/08/19 23:06: APTT 89.8 H 03/09/19 05:30: Sodium 143, Potassium 3.9, Chloride 110 H, Carbon Dioxide 27.0, Anion Gap 6, BUN 19 H, Creatinine 0.98, Est GFR (MDRD) Af Amer 72, Est GFR (MDRD) Non-Af 60, BUN/Creatinine Ratio 19.4, Glucose 98, Calcium 8.7 03/09/19 05:30: WBC 6.5, RBC 3.53 L, Hgb 10.7 L, Hct 33.1 L, MCV 93.8, MCH 30.3, MCHC 32.3, RDW 13.0, RDW Differential 43.0, Plt Count 254, MPV 10.1, Immature Gran % (Auto) 0.000, Neut % (Auto) 47.7, Lymph % (Auto) 44.5 H, [place] % (Auto) 6.1, Eos % (Auto) 1.4, Baso % (Auto) 0.3, Absolute Neuts (auto) 3.1, Total Counted Not Reportable 03/09/19 05:30: PT 13.0, INR 1.0, APTT 40.5 H Rhythm: Sinus rhythm Medical Necessity - Tobacco Use Smoking Status: Former smoker Assessment/Plan 1. Acute non-ST segment elevation ID The patient has appeared to experience an acute non-ST segment elevation ID. At the present time she appears to be symptomatically improved. She has undergone evaluation with diagnostic cardiac catheterization. She was found to have angiographically significant appearing RCA disease. She underwent subsequent PCI. She will continue medical management and follow-up. 2. CAD Again she has been found to have underlying CAD. She will need continued risk factor modification medical therapy as deemed appropriate. She will also be considered for not only future outpatient cardiovascular follow-up but outpatient cardiac rehabilitation therapy as well. 3. Cardiac murmur She does have underlying valvular heart disease. Her transthoracic echocardiogram is as noted above. She will continue follow-up by history, exam, and echo cardiographic studies in the future as deemed appropriate. 4. Hyperlipidemia She believes she tolerated simvastatin therapy but could not afford it. She has now been placed on pravastatin therapy. Hopefully she will tolerate this and be able to afford it. 5. Hypertension She will continue to have her blood pressure monitored and her medications adjusted as needed. 6. Anemia The etiology of her anemia is unclear. She has been undergoing evaluation care by hematology/oncology. Thus far there does not appear to be an obvious hemorrhagic issue and she appears to be tolerating her antiplatelet and anticoagulant therapy. She will be monitored for any concerns. 7. Right inguinal area ecchymoses She does have a right inguinal area ecchymoses. Her femoral artery appears to be 2+/4+ with no obvious bruits. There is no obvious hematoma. She denies any flank discomfort. She will continue to be monitored. Comment: The above was discussed with the patient and the [facility] ICU staff. This note was generated using a voice recognition system and there may be incorrect words, spelling or punctuation that were not noted when reviewing the office note prior to saving.
--- NOTE | 2019-03-09 19:36 | CL.D_ITS ---
Patient Name: GIO BLEVINS Study Date: 03/09/2019 Performing: Ethan Girard MD Ht: 64 inches 163 cm : 1950 Wt: 161.1 lbs 73 kg Age: 68 Gender: female BSA: 1.79 PROCEDURE(S) PERFORMED HL80-GCH/COR/LV [id number] W OR WO PTCA, SINGLE CORONARY ARTERY CLINICAL PROFILE AND INDICATIONS Patient presents with NSTEMI for urgent cardiac cath Indications: Worsening Angina, Suspected CAD, Valvular Disease, ACS <= 24 hrs, New Onset Angina < = 2 months, Suspected CAD, Valvular Disease Heart Failure: None Stress/Imaging Stress/Image Study Performed: No Stress/Image Study Performed: No Angina Classification Anginal Classification w/in 2 Weeks: CCS III CAD Presentations: Non-STEMI. Non-STEMI. Symptom onset Date/Time: 03/08/2019 Time Not Available Comorbidities/Risk Factors: Hypertension Dyslipidemia CONCLUSIONS Elevated Left Ventricular End Diastolic Pressure Normal LV size, wall motion,and systolic function LVEF: by LV gram 55 % [place] Multivessel CAD RECOMMENDATIONS Risk factor modification Medical therapy Referred for immediate PCI DESCRIPTION OF PROCEDURE The patient arrived to the procedure lab. The risks and benefits of the procedure as well as a full d escription of our services here and current unavailability of surgical backup were fully explained to the patient and/or their significant other prior to the catheterization. The Timeout was completed, verifying the correct patient and procedure. The patient's procedural site was prepped and draped in the usual fashion. Local anesthetic was given subcutaneously to right groin region with Lidocaine 2%. Using a modified Seldinger technique, arterial access was obtained via the right femoral artery, a 4 Fr sheath was inserted Left Coronary Artery selective angiography was performed in multiple views us ing a 4 Fr. JL5 catheter. Right Coronary Artery selective angiography was then performed in multiple views using a 4 Fr. 3DRC catheter. Left Ventriculography was performed in [place] projection using a 4 Fr . Pigtail catheter.The arterial sheath was exchanged to a standard 6F, 11cm sheath. The arterial sheath was sutured in place and capped CORONARY ANGIOGRAPHY DOMINANCE: Right Dominant LEFT HEART ASSESSMENT Left Ventricular Ejection Fraction: by LV Gram 55 % Normal LV wall motion Elevated Left Ventricular End Diastolic Pressure LVEDP: 27 mmHg LEFT MAIN: Angiographically normal LEFT ANTERIOR DESCENDING ARTERY: PROX LAD: Mild calcification, Mild luminal irregularities CIRCUMFLEX ARTERY: Mild luminal irregularities RIGHT CORONARY ARTERY: Mild luminal irregularities MID RCA: Eccentric: 90 % Stenosis VALVE FINDINGS: LV pullback procedure: no obvious hemodynamic findings suggestive of hemodynamically significant AV stenosis Normal Mitral Valve function AORTIC ROOT: Angiographically normal COMPLICATIONS No Complications PROCEDURE MEDICATIONS Versed 1 mg IV Oxygen: 2 L/min via nasal cannula Heparin 6000 unit(s) IV 03/09/2019 11:11:49 Nitro 200 mcg IC 03/09/2019 11:12:11 Nitro 200 mcg IC 03/09/2019 11:12:11 IV Bolus: .9 NaCl 250 ml total 03/09/2019 11:25:09 IV Fluids: .9 NaCl increased to wide open 03/09/2019 11:13:24 IV Fluids: .9 NaCl decreased to 150 ml/hr 03/09/2019 11:25:35 SUMMARY OF HEMODYNAMIC DATA Time AIR REST ECG 10:48:51 AO 138/74 (99) SA 11:00:41 LV 129/15, 28 11:06:31 LV 136/16, 27 11:06:39 LV 146/12, 30 11:07:36 LVp 148/11, 29 11:07:50 AOp 145/72 (100) 11:07:55 Signed By Ethan Girard MD On 03/09/2019 19:35:56 Ethan Girard MD
[2019-03-09] MEDS: Pravastatin 40 MG Tablet PO (21:13)
[2019-03-10] VITALS (25 sets, daily range): BP systolic 94–171; BP diastolic 47–71; PULSE 53–74; RESP 10–30; TEMP 36.6–36.8; O2SAT 94–98
[2019-03-10 04:02] LABS: Hematocrit 27.2 % (37-47); Hemoglobin 8.9 g/dl (12.0-15.0); Mean Corp Hgb Conc 32.7 g/gl (32-36); Mean Corpuscular Hgb 30.4 pg (27.0-32.0); Mean Corpuscular Volume 92.8 fL (81-99); Mean Platelet Vol. 9.6 fl (6.2-12.0); Platelet Count 201 K/mm3 (150-450); RBC Distribution Width CV 13.4 % (11.6-14.6); RBC Distribution Width SD 45.2 fl (35.1-43.9); Red Blood Count 2.93 M/mm3 (4.2-5.4); White Blood Count 5.3 K/mm3 (4.4-11.0)
[2019-03-10 04:06] LABS: Scan Indicated on CBC? Y/N NO
[2019-03-10] MEDS: oxyCODONE 5 MG Tablet PO ×3 (04:35→22:06)
[2019-03-10 04:45] LABS: Anion Gap 7 (5-15); BUN 26 mg/dL (7-18); BUN/Creat Ratio 23.9 RATIO (10-20); Calcium,Total 7.9 mg/dL (8.5-10.1); Chloride 113 mmol/L (98-107); Cholesterol 216 mg/dL (200); Creatinine, Serum 1.09 mg/dL (0.55-1.02); EST Glomerular Filtration Rate 53 mL/min (>60); Est Glom Filt Rate - Afr Amer 64 mL/min (>60); Estimated Creatinine Clearance 41.47 ml/min; Glucose 106 mg/dL (74-106); High Density Lipoprotein 35 mg/dL; Sodium Level 143 mmol/L (136-145); Triglycerides 596 mg/dL
--- NOTE | 2019-03-10 07:20 | PN_ITS ---
Patient Problems: Active and Suspected Problems (Last Reviewed 06/05/18 @ 17:06 by Maria Esther Arora) Non-STEMI (non-ST elevated myocardial infarction) (Acute) NSTEMI (non-ST elevated myocardial infarction) (Acute) Murmur, cardiac (Acute) Subjective: Patient is a 68-year-old lady with history of dyslipidemia, hypertension who pre sented with chest pain. Subsequent evaluation came back consistent with acute non-STEMI management protocol with consultation placed to cardiology. 03/10/2019. Patient underwent left heart catheterization with intervention to her RCA. Patient was transferred to the intensive care unit following her procedure. She apparently developed a hematoma in her right groin. Hemoglobin is dropped to 8.9 this a.m. Objective: GENERAL: cooperative HEENT: Atraumatic; EYES; Anicteric, Normal Conjunctiva NECK; supple, normal thyroid, RESPIRATORY: Diminished to auscultation bilaterally, CARDIOVASCULAR: Regular S1 S2, GI: soft, non-tender, normoactive bowel sounds, : No Renal angle tenderness; EXTREMITIES: No edema, no clubbing, MUSCULOSKELETAL: No Joint Tenderness; NEURO: Awake; no lateralizing signs. SKIN: No Rash PSYCH; Normal affect Vitals/I&O's: Vital Signs Temp Pulse Resp BP Pulse Ox 98.0 F 60 16 108/55 L 97 03/10/19 04:00 03/10/19 07:00 03/10/19 07:00 03/10/19 07:00 03/10/19 07:00 Oxygen Flow Rate (L/min) 2 Oxygen Delivery Method Room Air Weight: 72.7 kg Body Mass Index (BMI) 27.5 Intake and Output for Last 24 Hours 03/08/19 03/09/19 03/10/19 23:59 23:59 23:59 Intake Total 1678.4 / 1678.4 1236 / 1236 600 / 600 Output Total 540 / 540 Balance 1678.4 / 1678.4 696 / 696 600 / 600 Laboratory Results 03/09/19 11:23: Activated Clotting Time 180 H 03/10/19 03:55: Sodium 143, Potassium 4.0, Chloride 113 H, Carbon Dioxide 23.0, Anion Gap 7, BUN 26 H, Creatinine 1.09 H, Estim Creat Clear Calc 41.47, Est GFR (MDRD) Af Amer 64, Est GFR (MDRD) Non-Af 53 L, BUN/Creatinine Ratio 23.9 H, Glucose 106, Calcium 7.9 L, Triglycerides 596 H, Cholesterol 216 H, LDL Cholesterol TNP, VLDL Cholesterol TNP, HDL Cholesterol 35 L 03/10/19 03:55: WBC 5.3, RBC 2.93 L, Hgb 8.9 L, Hct 27.2 L, MCV 92.8, MCH 30.4, MCHC 32.7, RDW 13.4, RDW Differential 45.2 H, Plt Count 201, MPV 9.6 Current Medications Acetaminophen (Tylenol) 650 mg PO Q6H PRN PRN PRN Reason: Mild pain 1-3/Temp > 100.7 F Last Admin: 03/09/19 09:09 Dose: 650 mg Acetaminophen (Tylenol) 650 mg PO Q6H PRN PRN PRN Reason: Mild Pain (0-2/10) Aspirin (Ecotrin) 81 mg PO DAILY@0800 [facility] Last Admin: 03/09/19 05:53 Dose: 81 mg Atropine Sulfate () 0.5 mg IV UD PRN PRN Reason: HR <50 bpm Dextrose (D50w Syringe) 0 gm IV X1 PRN; Protocol PRN Reason: Hypoglycemia Fluoxetine HCl (Prozac) 60 mg PO DAILY [facility] Last Admin: 03/09/19 15:29 Dose: 60 mg Glucagon () 1 mg IM .X1 PRN PRN Reason: Hypoglycemia Heparin Sodium (Beef Lung) (Heparin 500 Unit/5 Ml (100/Ml)) 500 unit IV UD PRN PRN Reason: HEPARIN FLUSH Heparin Sodium (Porcine) (Heparin Na) 0 unit IV UD PRN; Protocol Last Admin: 03/08/19 09:45 Dose: 1,000 unit Sodium Chloride () 1,000 mls @ 0 mls/hr IV .Q0M [facility] Labetalol HCl (Trandate) 5 mg IV X1 PRN PRN Reason: SBP > 160 when pulling sheath Lisinopril (Zestril) 5 mg PO DAILY [facility] Lorazepam (Ativan) 1 mg PO Q6H PRN PRN PRN Reason: BACK SPASMS/ANXIETY Metoprolol Tartrate (Lopressor (Beta Denis)) 25 mg PO BID [facility] Last Admin: 03/09/19 21:12 Dose: 25 mg Morphine Sulfate () 2 mg IV Q4H PRN PRN PRN Reason: Mild back pain (0-2/10) Nitroglycerin (Nitrostat) 0.4 mg SUBLINGUAL Q5M PRN PRN Reason: CARDIAC/CHEST PAIN Nitroglycerin (Nitrostat) 0.4 mg SUBLINGUAL Q5M PRN PRN Reason: CARDIAC/CHEST PAIN Ondansetron HCl (Zofran) 4 mg IV Q8H PRN PRN PRN Reason: NAUSEA/VOMITING Oxycodone HCl (Oxyir) 5 mg PO Q4H PRN PRN PRN Reason: PAIN Last Admin: 03/10/19 04:35 Dose: 5 mg Pravastatin Sodium (Pravachol) 40 mg PO QHS VIRGIE Last Admin: 03/09/19 21:13 Dose: 40 mg Sodium Chloride () 5 - 15 ml IV UD PRN PRN Reason: SALINE FLUSH Sodium Chloride () 500 ml IV BOLUS PRN PRN Reason: VASO-VAGAL PROTOCOL Ticagrelor (Brilinta) 90 mg PO BID [facility] Last Admin: 03/09/19 21:13 Dose: 90 mg Medical Necessity - Tobacco Use Smoking Status: Former smoker - Smoke a little bit when she was age 8-10; where she and his sister used to hide and take few puffs of her father's cigarettes. Assessment/Plan All Active Problems (Last Reviewed 06/05/18 @ 17:06 by Maria Esther Arora) Cellulitis of right hand (Acute) Cat bite of finger (Acute) Segmental and somatic dysfunction of cervical region (Acute) Segmental and somatic dysfunction of thoracic region (Acute) Cervicogenic headache (Acute) Non-STEMI (non-ST elevated myocardial infarction) (Acute) NSTEMI (non-ST elevated myocardial infarction) (Acute) Murmur, cardiac (Acute) Patient is a 68-year-old lady with history of dyslipidemia, hypertension who presented with chest pain. Subsequent evaluation came back consistent with acute non-STEMI management protocol with consultation placed to cardiology 1. Acute non-STEMI: Patient was admitted to monitored bed management protocol with consultation placed to cardiology. Patient underwent left heart catheterization on 03/09/2019 with PCI/RAFAEL to an RCA lesion 2. Right groin hematoma following patient left heart catheterization managed conservatively appears stable 3. Anemia secondary to acute blood loss anemia of as a result of #2 monitoring H&H with plans to transfuse if patient becomes symptomatic or hemoglobin falls below 8 4. Hypertension-blood pressure controlled, home medications continued with dose adjustment as needed 5. Dyslipidemia-patient is on statin therapy, continued at home dose 6. Depression patient is on Prozac 7. Dehydration improved with rehydration 8. DVT prophylaxis on heparin Code Visit Inpatient E&M: 36473 Subs Hosp L3
[2019-03-10] MEDS: Acetaminophen 325 MG Tablet 650 MG PO (08:11)
[2019-03-10] MEDS: Aspirin E.C. 81 MG Tablet PO (08:11)
[2019-03-10] MEDS: Ondansetron 4 MG/2 ML Vial IV ×2 (08:26→22:06)
[2019-03-10] MEDS: 0.9% NaCl Peripheral Flush Adult/Peds IV ×2 (08:26→22:07)
--- NOTE | 2019-03-10 09:37 | PCM.PN.CARD ---
Subjectve: The patient is awake and alert. She states overall she feels better. She was complaining of a headache with associated nausea and emesis. She believes that is improving at this time. She notes tenderness in her right inguinal area. Objective: Vital Signs Temp Pulse Resp BP Pulse Ox 98.3 F 59 L 21 H 126/62 H 96 03/10/19 08:00 03/10/19 08:00 03/10/19 08:00 03/10/19 08:00 03/10/19 08:00 Oxygen Flow Rate (L/min) 2 Oxygen Delivery Method Room Air Weight: 160 lb 4.417 oz Body Mass Index (BMI) 27.5 Intake and Output for Last 24 Hours 03/08/19 03/09/19 03/10/19 23:59 23:59 23:59 Intake Total 1678.4 / 1678.4 1236 / 1236 600 / 600 Output Total 540 / 540 Balance 1678.4 / 1678.4 696 / 696 600 / 600 General: Awake, Alert, Oriented x 3, Cooperative, No Acute Distress HEENT: Atraumatic, Normocephalic, PERRL, EOMI, Sclera Non Icteric Oral: Moist Mucosa Neck: Supple, Good ROM, No JVD Lungs: Clear to auscultation Cardiovascular: Regular Rhythm, Normal S1, Normal S2 Vascular: Normal Femoral Pulses Abdomen: Bowel Sounds Present, Soft, Non Tender Extremities: No edema, - - Right inguinal area: Positive ecchymoses; femoral pulse 2+/4+; No definitive hematoma Neurological: No Focal Motor or Sensory Deficit Psych/Mental Status: Appropriate 03/10/19 03:55: Sodium 143, Potassium 4.0, Chloride 113 H, Carbon Dioxide 23.0, Anion Gap 7, BUN 26 H, Creatinine 1.09 H, Est GFR (MDRD) Af Amer 64, Est GFR (MDRD) Non-Af 53 L, BUN/Creatinine Ratio 23.9 H, Glucose 106, Calcium 7.9 L, Triglycerides 596 H, Cholesterol 216 H, LDL Cholesterol TNP, VLDL Cholesterol TNP, HDL Cholesterol 35 L 03/10/19 03:55: WBC 5.3, RBC 2.93 L, Hgb 8.9 L, Hct 27.2 L, MCV 92.8, MCH 30.4, MCHC 32.7, RDW 13.4, RDW Differential 45.2 H, Plt Count 201, MPV 9.6 Rhythm: Sinus rhythm/sinus bradycardia EKG: Sinus rhythm; first-degree AV block; septal ND of indeterminate age cannot be excluded; T wave abnormality appearing compatible with myocardial ischemia-inferior Medical Necessity - Tobacco Use Smoking Status: Former smoker - Smoke a little bit when she was age 8-10; where she and his sister used to hide and take few puffs of her father's cigarettes. Assessment/Plan 1. Acute non-ST segment elevation ND The patient has appeared to experience an acute non-ST segment elevation ND. At the present time she appears to be symptomatically improved. She has undergone evaluation with diagnostic cardiac catheterization. She was found to have angiographically significant appearing RCA disease. She underwent subsequent PCI. She will continue medical management and follow-up. 2. CAD Again she has been found to have underlying CAD. She will need continued risk factor modification medical therapy as deemed appropriate. She will also be considered for not only future outpatient cardiovascular follow-up but outpatient cardiac rehabilitation therapy as well. 3. Cardiac murmur She does have underlying valvular heart disease. Her transthoracic echocardiogram is as noted above. She will continue follow-up by history, exam, and echo cardiographic studies in the future as deemed appropriate. 4. Hyperlipidemia She believes she tolerated simvastatin therapy but could not afford it. She has now been placed on pravastatin therapy. Hopefully she will tolerate this and be able to afford it. 5. Hypertension She will continue to have her blood pressure monitored and her medications adjusted as needed. 6. Anemia The etiology of her anemia is unclear. She has been undergoing evaluation care by hematology/oncology. She will continue both inpatient and outpatient follow-up of her H&H as deemed appropriate. 7. Right inguinal area ecchymoses She does have ecchymoses at her cardiac catheterization site. Her femoral pulse appears to be 2+/4+ with no obvious bruits. Her site appears to be soft with no definitive hematoma. Overall, at the present time, she will continue to be monitored. She will continue medical therapy. She will be asked to be up in the chair and ambulating. If she is doing well then she can be transferred to the PCU for continued evaluation and care. Comment: The above was discussed with the patient and the [facility] staff. This note was generated using a voice recognition system and there may be incorrect words, spelling or punctuation that were not noted when reviewing the office note prior to saving.
--- NOTE | 2019-03-10 09:40 | PN.CARD_ITS ---
Subjectve: The patient is awake and alert. She states overall she feels better. She was complaining of a headache with associated nausea and emesis. She believes that is improving at this time. She notes tenderness in her right inguinal area. Objective: Vital Signs Temp Pulse Resp BP Pulse Ox 98.3 F 59 L 21 H 126/62 H 96 03/10/19 08:00 03/10/19 08:00 03/10/19 08:00 03/10/19 08:00 03/10/19 08:00 Oxygen Flow Rate (L/min) 2 Oxygen Delivery Method Room Air Weight: 160 lb 4.417 oz Body Mass Index (BMI) 27.5 Intake and Output for Last 24 Hours 03/08/19 03/09/19 03/10/19 23:59 23:59 23:59 Intake Total 1678.4 / 1678.4 1236 / 1236 600 / 600 Output Total 540 / 540 Balance 1678.4 / 1678.4 696 / 696 600 / 600 General: Awake, Alert, Oriented x 3, Cooperative, No Acute Distress HEENT: Atraumatic, Normocephalic, PERRL, EOMI, Sclera Non Icteric Oral: Moist Mucosa Neck: Supple, Good ROM, No JVD Lungs: Clear to auscultation Cardiovascular: Regular Rhythm, Normal S1, Normal S2 Vascular: Normal Femoral Pulses Abdomen: Bowel Sounds Present, Soft, Non Tender Extremities: No edema, - - Right inguinal area: Positive ecchymoses; femoral pulse 2+/4+; No definitive hematoma Neurological: No Focal Motor or Sensory Deficit Psych/Mental Status: Appropriate 03/10/19 03:55: Sodium 143, Potassium 4.0, Chloride 113 H, Carbon Dioxide 23.0, Anion Gap 7, BUN 26 H, Creatinine 1.09 H, Est GFR (MDRD) Af Amer 64, Est GFR (MDRD) Non-Af 53 L, BUN/Creatinine Ratio 23.9 H, Glucose 106, Calcium 7.9 L, Triglycerides 596 H, Cholesterol 216 H, LDL Cholesterol TNP, VLDL Cholesterol TNP, HDL Cholesterol 35 L 03/10/19 03:55: WBC 5.3, RBC 2.93 L, Hgb 8.9 L, Hct 27.2 L, MCV 92.8, MCH 30.4, MCHC 32.7, RDW 13.4, RDW Differential 45.2 H, Plt Count 201, MPV 9.6 Rhythm: Sinus rhythm/sinus bradycardia EKG: Sinus rhythm; first-degree AV block; septal [place] of indeterminate age cannot be excluded; T wave abnormality appearing compatible with myocardial ischemia- inferior Medical Necessity - Tobacco Use Smoking Status: Former smoker - Smoke a little bit when she was age 8-10; where she and his sister used to hide and take few puffs of her father's cigarettes. Assessment/Plan 1. Acute non-ST segment elevation [place] The patient has appeared to experience an acute non-ST segment elevation LA. At the present time she appears to be symptomatically improved. She has undergone evaluation with diagnostic cardiac catheterization. She was found to have angiographically significant appearing RCA disease. She underwent subsequent PCI. She will continue medical management and follow-up. 2. CAD Again she has been found to have underlying CAD. She will need continued risk factor modification medical therapy as deemed appropriate. She will also be considered for not only future outpatient cardiovascular follow-up but outpatient cardiac rehabilitation therapy as well. 3. Cardiac murmur She does have underlying valvular heart disease. Her transthoracic echocardiogram is as noted above. She will continue follow-up by history, exam, and echo cardiographic studies in the future as deemed appropriate. 4. Hyperlipidemia She believes she tolerated simvastatin therapy but could not afford it. She has now been placed on pravastatin therapy. Hopefully she will tolerate this and be able to afford it. 5. Hypertension She will continue to have her blood pressure monitored and her medications adjusted as needed. 6. Anemia The etiology of her anemia is unclear. She has been undergoing evaluation care by hematology/oncology. She will continue both inpatient and outpatient follow-up of her H&H as deemed appropriate. 7. Right inguinal area ecchymoses She does have ecchymoses at her cardiac catheterization site. Her femoral pulse appears to be 2+/4+ with no obvious bruits. Her site appears to be soft with no definitive hematoma. Overall, at the present time, she will continue to be monitored. She will continue medical therapy. She will be asked to be up in the chair and ambulating. If she is doing well then she can be transferred to the PCU for continued evaluation and care. Comment: The above was discussed with the patient and the [facility] staff. This note was generated using a voice recognition system and there may be incorrect words, spelling or punctuation that were not noted when reviewing the office note prior to saving.
--- NOTE | 2019-03-10 10:00 | EKG12_ITS ---
Test Reason : Blood Pressure : / mmHG Vent. Rate : 050 BPM Atrial Rate : 050 BPM P-R Int : 222 ms QRS Dur : 086 ms QT Int : 498 ms P-R-T Axes : 058 001 -42 degrees QTc Int : 454 ms Sinus bradycardia with 1st degree A-V block Septal infarct , age undetermined T wave abnormality, consider inferior ischemia Abnormal ECG Confirmed by RAZA SUERO, KERRY ([id number]), food editor MACY MAHONEY ([id number]) on 03/12/2019 1:42:28 PM Referred By: Mitchell Perdue Confirmed By:KERRY PERSON MD
[2019-03-10] MEDS: FLUoxetine 20 MG Capsule 60 MG PO (10:09)
[2019-03-10] MEDS: TICAGRELOR 90 MG TABLET PO ×2 (10:10→22:06)
[2019-03-10] MEDS: LORazepam 1 MG Tablet PO (22:05)
[2019-03-10] MEDS: Pravastatin 40 MG Tablet PO (22:05)
[2019-03-10] MEDS: Metoprolol Tartrate 25 MG Tablet PO (22:06)
[2019-03-11 03:00] VITALS: PULSE 59
[2019-03-11 03:30] VITALS: BP 106/57; PULSE 67; RESP 16; TEMP 37.1; O2SAT 97
[2019-03-11 05:52] LABS: Hematocrit 27.2 % (37-47); Hemoglobin 8.8 g/dl (12.0-15.0)
[2019-03-11 06:15] LABS: Anion Gap 7 (5-15); BUN 19 mg/dL (7-18); BUN/Creat Ratio 19.2 RATIO (10-20); Calcium,Total 8.2 mg/dL (8.5-10.1); Chloride 109 mmol/L (98-107); Creatinine, Serum 0.99 mg/dL (0.55-1.02); EST Glomerular Filtration Rate 59 mL/min (>60); Est Glom Filt Rate - Afr Amer 71 mL/min (>60); Estimated Creatinine Clearance 45.66 ml/min; Glucose 102 mg/dL (74-106); Potassium 3.8 mmol/L (3.5-5.1); Sodium Level 141 mmol/L (136-145)
[2019-03-11 07:04] VITALS: O2SAT 97
[2019-03-11 07:21] VITALS: PULSE 64
--- NOTE | 2019-03-11 08:47 | PCM.DC ---
- Discharge Diagnoses Current Active Problems: Current Active and Chronic Problems (Last Updated 03/10/19 @ 08:11 by Haleigh Wiley) Atherosclerotic heart disease of [place] coronary artery without angina pectoris (Chronic) S/P coronary artery stent placement (Chronic ~03/09/19) PTCA/RAFAEL to mid RCA 03/09/19 Non-STEMI (non-ST elevated myocardial infarction) (Acute) NSTEMI (non-ST elevated myocardial infarction) (Acute) Murmur, cardiac (Acute) You will use the following diet at home:: Cardiac Your food should be the consistency of: Regular Allergies/Adverse Reactions: Allergies atorvastatin [From Lipitor] Adverse Reaction (Verified 02/10/19 11:41) Other muscle pain simvastatin Adverse Reaction (Verified 02/10/19 11:41) Other muscle pain Medications to take at Discharge Fluoxetine HCl 60 mg PO DAILY 01/11/17 Multivitamin with Minerals [Multiple Vitamin] 1 each PO DAILY 03/08/19 [place]-3 Fatty Acids/Fish Oil [Fish Oil 1,000 mg Capsule] 1 each PO DAILY 03/08/19 Aspirin E.C. [Ecotrin] 81 mg PO DAILY@0800 #90 tablet 03/11/19 Lisinopril [Zestril] 5 mg PO DAILY #90 tablet 03/11/19 Metoprolol Tartrate [Lopressor (beta abigail)] 12.5 mg PO BID #90 tablet 03/11/19 Pravastatin [Pravachol] 40 mg PO QHS #90 tablet 03/11/19 Ticagrelor [Brilinta] 90 mg PO BID #180 tablet 03/11/19 The following prescriptions were given: Aspirin E.C. [Ecotrin] 81 mg PO DAILY@0800 #90 tablet Lisinopril [Zestril] 5 mg PO DAILY #90 tablet Metoprolol Tartrate [Lopressor (beta abigail)] 12.5 mg PO BID #90 tablet Pravastatin [Pravachol] 40 mg PO QHS #90 tablet Ticagrelor [Brilinta] 90 mg PO BID #180 tablet Orders to be completed after discharge: Phase II, Outpatient Cardiac Rehab Location: None Selected Primary Care Physician: Terence Barth Chi, MD [Primary Care Provider] - Please follow up with your Primary Care Physician in: in 5-7 days Test Results: Test results from this visit will be discussed in further detail at your follow-up appointment, if applicable. Please Follow Up With: Ethan Girard MD When: in 2-3 weeks Proposed Discharge Date: 03/11/19
--- NOTE | 2019-03-11 08:48 | PCM.WORK.EX ---
Work/School Excuse Work/School Excuse for:: Patient Please excuse this person from:: Work From: 03/09/19 through: 03/20/19 Restrictions: Light Duty, No Heavy Lifting
--- NOTE | 2019-03-11 08:51 | DS.PCM_ITS ---
Discharge Date and Diagnosis - Problem List Patient Problems: Active and Suspected Problems (Last Updated 03/10/19 @ 08:11 by Haleigh Wiley) Non-STEMI (non-ST elevated myocardial infarction) (Acute) NSTEMI (non-ST elevated myocardial infarction) (Acute) Murmur, cardiac (Acute) Date of Admission: 03/08/19 Date of Discharge: 03/11/19 - Primary Discharge Diagnosis Active and Suspected Problems (Last Updated 03/10/19 @ 08:11 by Haleigh Wiley) Non-STEMI (non-ST elevated myocardial infarction) (Acute) NSTEMI (non-ST elevated myocardial infarction) (Acute) Murmur, cardiac (Acute) - Secondary Discharge Diagnosis Chronic Problems (Last Updated 03/10/19 @ 08:11 by Haleigh Wiley) Atherosclerotic heart disease of [place] coronary artery without angina pectoris (Chronic) S/P coronary artery stent placement (Chronic ~03/09/19) PTCA/RAFAEL to mid RCA 03/09/19 History of anemia (Chronic) Hyperlipidemia (Chronic) Hypertension (Chronic) Chronic pain (Chronic) History of cholelithiasis (Chronic) Chronic back pain (Chronic) Anemia (Chronic) Degenerative disc disease, cervical (Chronic) Hospital Course and Treatment Imaging Results: Clinical Impression(s) from Imaging Studies Chest X-Ray 03/08/19 01:37 IMPRESSION: Degenerative changes, as described above. No demonstrated acute cardiopulmonary process. Electronically Signed: Sunny Hameedford, at 2:33 EDT Tel , Service support , Summary of Care Provided: Patient is a 68-year-old lady with history of dyslipidemia, hypertension who presented with chest pain. Subsequent evaluation came back consistent with acute non-STEMI management protocol with consultation placed to cardiology 1. Acute non-STEMI: Patient was admitted to monitored bed management protocol with consultation placed to cardiology. Patient underwent left heart catheterization on 03/09/2019 with PCI/RAFAEL to an RCA lesion the patient was discharged home 3 days after her hospitalization with optimal treatment including beta-blockers, statin therapy SALVATORE inhibitors as well as dual antiplatelet therapy 2. Right groin hematoma following patient left heart catheterization managed conservatively appears stable 3. Anemia secondary to acute blood loss anemia of as a result of #2 monitored H&H and did not require blood transfusion 4. Hypertension-blood pressure controlled, home medications continued with dose adjustment as needed 5. Dyslipidemia-patient is on statin therapy, continued at home dose 6. Depression patient is on Prozac 7. Dehydration improved with rehydration 8. DVT prophylaxis on heparin Patient Problems: Active and Suspected Problems (Last Updated 03/10/19 @ 08:11 by Haleigh Wiley) Non-STEMI (non-ST elevated myocardial infarction) (Acute) NSTEMI (non-ST elevated myocardial infarction) (Acute) Murmur, cardiac (Acute) Objective: GENERAL: cooperative HEENT: Atraumatic; EYES; Anicteric, Normal Conjunctiva NECK; supple, normal thyroid, RESPIRATORY: Diminished to auscultation bilaterally, CARDIOVASCULAR: Regular S1 S2, GI: soft, non-tender, normoactive bowel sounds, : No Renal angle tenderness; EXTREMITIES: No edema, no clubbing, MUSCULOSKELETAL: No Joint Tenderness; NEURO: Awake; no lateralizing signs. PSYCH; Normal affect - Physical Exam Vital Signs Temp Pulse Resp BP Pulse Ox 98.8 F 64 16 106/57 L 97 03/11/19 03:30 03/11/19 07:21 03/11/19 03:30 03/11/19 03:30 03/11/19 07:04 Oxygen Flow Rate (L/min) 2 Oxygen Delivery Method Room Air Weight: 72.7 kg Body Mass Index (BMI) 27.5 Intake and Output for Last 24 Hours 03/09/19 03/10/19 03/11/19 23:59 23:59 23:59 Intake Total 1236 / 1236 1080 / 1080 220 / 220 Output Total 540 / 540 Balance 696 / 696 1080 / 1080 220 / 220 Laboratory Tests Past 24 Hrs 03/11/19 03/11/19 05:30 05:30 Hgb 8.8 L Hct 27.2 L Sodium 141 Potassium 3.8 Chloride 109 H Carbon Dioxide 25.0 Anion Gap 7 BUN 19 H Creatinine 0.99 Estim Creat Clear Calc 45.66 Est GFR (MDRD) Af Amer 71 Est GFR (MDRD) Non-Af 59 L BUN/Creatinine Ratio 19.2 Glucose 102 Calcium 8.2 L Discharge Diet: Low fat/ Low Cholesterol Discharge Activity: Return to Normal Activity Home Medications: Medications to take at Discharge Fluoxetine HCl 60 mg PO DAILY 01/11/17 Multivitamin with Minerals [Multiple Vitamin] 1 each PO DAILY 03/08/19 [place]-3 Fatty Acids/Fish Oil [Fish Oil 1,000 mg Capsule] 1 each PO DAILY 03/08/19 Aspirin E.C. [Ecotrin] 81 mg PO DAILY@0800 #90 tablet 03/11/19 Lisinopril [Zestril] 5 mg PO DAILY #90 tablet 03/11/19 Metoprolol Tartrate [Lopressor (beta denis)] 12.5 mg PO BID #90 tablet 9 Pravastatin [Pravachol] 40 mg PO QHS #90 tablet 03/11/19 Ticagrelor [Brilinta] 90 mg PO BID #180 tablet 03/11/19 Following Prescrptions Were Given to Patient: Aspirin E.C. [Ecotrin] 81 mg PO DAILY@0800 #90 tablet Lisinopril [Zestril] 5 mg PO DAILY #90 tablet Metoprolol Tartrate [Lopressor (beta denis)] 12.5 mg PO BID #90 tablet Pravastatin [Pravachol] 40 mg PO QHS #90 tablet Ticagrelor [Brilinta] 90 mg PO BID #180 tablet Other Amb Orders: Phase II, Outpatient Cardiac Rehab Location: None Selected Primary Care Physician: Terence Barth Chi, MD [Primary Care Provider] - Please follow up with your Primary Care Physician in: in 5-7 days Please Follow Up With: Ethan Girard MD When: in 2-3 weeks Disposition: Home Minutes spent on discharge:: 35 Patient Condition:: Stable Medical Necessity - Tobacco Use Smoking Status: Former smoker - Smoke a little bit when she was age 8-10; where she and his sister used to hide and take few puffs of her father's cigarettes. Meaningful Use Info Meaningful Use Diagnoses (Choose all that apply): AMI - AMI Aspirin given w/in 24hrs of arrival?: Yes ASA at discharge?: Yes Statins at discharge?: Yes Salvatore/ARB at discharge?: Yes Beta Denis at discharge?: Yes Done w/ Acute OR measure.: Yes Code Visit Inpatient E&M: 86407 Disch Hosp
--- NOTE | 2019-03-11 09:19 | CASEMGMT ---
Call to [facility] pharmacy and per tech, pt's co-pay for 3 month supply of Brilinta is $126. Pt already provided with Brilinta savings card and explanation by Liza JETT CM previously. Anni JETT CM
--- NOTE | 2019-03-11 09:20 | PN.CARD_ITS ---
Subjectve: The patient is awake and alert. She looks better today. She states she feels better overall today. She has no new acute complaints. Objective: Vital Signs Temp Pulse Resp BP Pulse Ox 98.8 F 64 16 106/57 L 97 03/11/19 03:30 03/11/19 07:21 03/11/19 03:30 03/11/19 03:30 03/11/19 07:04 Oxygen Flow Rate (L/min) 2 Oxygen Delivery Method Room Air Weight: 160 lb 4.417 oz Body Mass Index (BMI) 27.5 Intake and Output for Last 24 Hours 03/09/19 03/10/19 03/11/19 23:59 23:59 23:59 Intake Total 1236 / 1236 1080 / 1080 220 / 220 Output Total 540 / 540 Balance 696 / 696 1080 / 1080 220 / 220 General: Awake, Alert, Oriented x 3, Cooperative, No Acute Distress HEENT: Atraumatic, Normocephalic, PERRL, EOMI, Sclera Non Icteric Oral: Moist Mucosa Neck: Supple, Good ROM, No JVD Lungs: Clear to auscultation Cardiovascular: Regular Rhythm, Normal S1, Normal S2 Murmur Murmur: Grade 3/6, Soft, Mid Systolic, LLSB, [place], LVOT Vascular: Normal Femoral Pulses Abdomen: Bowel Sounds Present, Soft, Non Tender Extremities: No edema, - - Right inguinal area: Ecchymotic: Pulse 2+/4+: No obvious hematoma Neurological: No Focal Motor or Sensory Deficit Psych/Mental Status: Appropriate 03/11/19 05:30: Sodium 141, Potassium 3.8, Chloride 109 H, Carbon Dioxide 25.0, Anion Gap 7, BUN 19 H, Creatinine 0.99, Est GFR (MDRD) Af Amer 71, Est GFR (MDRD) Non-Af 59 L, BUN/Creatinine Ratio 19.2, Glucose 102, Calcium 8.2 L 03/11/19 05:30: Hgb 8.8 L, Hct 27.2 L Rhythm: Sinus rhythm Medical Necessity - Tobacco Use Smoking Status: Former smoker - Smoke a little bit when she was age 6-10; where she and his sister used to hide and take few puffs of her father's cigarettes. Assessment/Plan 1. Acute non-ST segment elevation [place] The patient has appeared to experience an acute non-ST segment elevation [place]. At the present time she appears to be symptomatically improved. She has undergone evaluation with diagnostic cardiac catheterization. She was found to have angiographically significant appearing RCA disease. She underwent subsequent PCI. She will continue medical management and follow-up. 2. CAD Again she has been found to have underlying CAD. She will need continued risk factor modification medical therapy as deemed appropriate. She will also be considered for not only future outpatient cardiovascular follow-up but outpatient cardiac rehabilitation therapy as well. 3. Cardiac murmur She does have underlying valvular heart disease. Her transthoracic echocardiogram is as noted above. She will continue follow-up by history, exam, and echo cardiographic studies in the future as deemed appropriate. 4. Hyperlipidemia She believes she tolerated simvastatin therapy but could not afford it. She has now been placed on pravastatin therapy. Hopefully she will tolerate this and be able to afford it. 5. Hypertension She will continue to have her blood pressure monitored and her medications adjusted as needed. 6. Anemia The etiology of her anemia is unclear. She has been undergoing evaluation care by hematology/oncology. Her H&H, although low, appears stable at this time. 7. Right inguinal area ecchymoses She does have ecchymoses at her cardiac catheterization site. Her femoral pulse appears to be 2+/4+ with no obvious bruits. Her site appears to be soft with no definitive hematoma. At the present time she will continue medical management with adjustment as deemed appropriate based upon her clinical status, vital signs, laboratory studies, etc. Otherwise there are no immediate plans for additional cardiac diagnostic studies or therapeutic intervention. She will continue with outpatient cardiovascular follow-up. Comment: The above was discussed with the patient and the [facility] hospitalist staff. This note was generated using a voice recognition system and there may be incorrect words, spelling or punctuation that were not noted when reviewing the office note prior to saving.
[2019-03-11 09:32] VITALS: BP 110/59; PULSE 68; RESP 17; TEMP 36.8; O2SAT 95
[2019-03-11] MEDS: Aspirin E.C. 81 MG Tablet PO (09:34)
[2019-03-11 09:35] VITALS: PULSE 68
[2019-03-11] MEDS: Metoprolol Tartrate 25 MG Tablet 12.5 MG PO (09:35)
[2019-03-11] MEDS: TICAGRELOR 90 MG TABLET PO (09:35)
[2019-03-11] MEDS: FLUoxetine 20 MG Capsule 60 MG PO (09:39)
[2019-03-11] MEDS: Lisinopril 5 MG Tablet PO (09:45)
--- NOTE | 2019-03-11 10:00 | EKG12_ITS ---
Test Reason : Blood Pressure : / mmHG Vent. Rate : 060 BPM Atrial Rate : 060 BPM P-R Int : 218 ms QRS Dur : 092 ms QT Int : 444 ms P-R-T Axes : 033 -07 -27 degrees QTc Int : 444 ms Sinus rhythm with 1st degree A-V block Otherwise normal ECG When compared with ECG of 10-MAR-2019 05:23, MANUAL COMPARISON REQUIRED, DATA IS UNCONFIRMED Confirmed by WILNER SUERO, JE ([id number]), editor dictionary KAREN PEREZ ([id number]) on 03/23/2019 2:56:09 PM Referred By: Mitchell Perdue Confirmed By:JE DARBY MD
== END 2019-03-11 13:07 | disposition home or self-care (01) | DRG 247 ==
LOC: ED 02:36 → PCU 03:43 → ICU 03-09 11:11 → PCU 03-10 17:14
PROVIDERS: Hospitalist; Internal Medicine Cardiovascular Disease; Admitting Provider Hospitalist; Emergency Provider Emergency Medicine; Family Provider Family Medicine Geriatric Medicine; PCP Family Medicine Geriatric Medicine; Referring Provider Hospitalist; Visit Provider Internal Medicine
DX: I21.4 Non-ST elevation (NSTEMI) myocardial infarction (principal); N17.9 Acute kidney failure, unspecified; I97.630 Postprocedural hematoma of a circulatory system organ or structure following a cardiac catheterization; D62 Acute posthemorrhagic anemia; D64.9 Anemia, unspecified; E86.0 Dehydration; I25.119 Atherosclerotic heart disease of native coronary artery with unspecified angina pectoris; I10 Essential (primary) hypertension; E78.5 Hyperlipidemia, unspecified; G89.29 Other chronic pain; F32.9 Major depressive disorder, single episode, unspecified; Z79.899 Other long term (current) drug therapy; Z87.891 Personal history of nicotine dependence; Z95.5 Presence of coronary angioplasty implant and graft
CPT/HCPCS: 36415; 71045; 80048; 80061; 81001; 83036; 84484; 85014; 85018; 85025; 85027; 85347; 85610; 85730; 92928; 93005; 93306; 93458; 97161; 97165; 99152; 99153; 99283; J7030; Q9967; A4216; C1725; C1769; C1874; C1887; C1894; C9600; J2405

== ENCOUNTER → 2019-03-18 15:59 | Outpatient (CLI) | payer MEDICARE, SELFPAY ==
[2019-03-17 15:16] VITALS: BMI 28.1
[2019-03-18 17:45] LABS: Absolute Lymphocyte Count 1.54 X10^3/ul (0.83-4.51); Absolute Neutrophil Count 2.6 X10^3/uL (2.0-7.7); Basophil# 0.05 X10^3/uL; Basophil% 1.1 % (0-1); Eosinophil# 0.09 X10^3/uL; Eosinophils% 1.9 % (0-5); Hematocrit 30.6 % (37-47); Hemoglobin 9.9 g/dl (12.0-15.0); Lymphocyte # 1.54 X10^3/ul (4.0); Lymphocyte % 32.8 % (19-41); Mean Corp Hgb Conc 32.4 g/gl (32-36); Mean Corpuscular Hgb 30.4 pg (27.0-32.0); Mean Corpuscular Volume 93.9 fL (81-99); Mean Platelet Vol. 10.2 fl (6.2-12.0); Monocyte# 0.39 X10^3/uL; Monocyte% 8.3 % (0-10); Neutrophil # 2.62 X10^3/uL (2.7-7.7); Neutrophil % 55.9 % (47-70); Platelet Count 277 K/mm3 (150-450); RBC Distribution Width CV 14.2 % (11.6-14.6); Red Blood Count 3.26 M/mm3 (4.2-5.4); White Blood Count 4.7 K/mm3 (4.4-11.0)
[2019-03-18 17:57] LABS: POSITIVE COUNT NO; POSITIVE DIFFERENTIAL NO; POSITIVE MORPHOLOGY NO
[2019-03-18 18:00] LABS: Anion Gap 8 (5-15); BUN 28 mg/dL (7-18); BUN/Creat Ratio 28.6 RATIO (10-20); Calcium,Total 8.7 mg/dL (8.5-10.1); Chloride 111 mmol/L (98-107); Creatinine, Serum 0.98 mg/dL (0.55-1.02); EST Glomerular Filtration Rate 60 mL/min (>60); Est Glom Filt Rate - Afr Amer 72 mL/min (>60); Glucose 102 mg/dL (74-106); Potassium 4.2 mmol/L (3.5-5.1); Sodium Level 142 mmol/L (136-145)
== END ==
PROVIDERS: Family Provider Family Medicine Geriatric Medicine; PCP Family Medicine Geriatric Medicine; Visit Provider Family Medicine Geriatric Medicine
DX: D64.9 Anemia, unspecified (principal)
CPT/HCPCS: 36415; 80048; 85025

== ENCOUNTER 2019-03-21 17:54 | Observation (INO) | payer MEDICARE, SELFPAY ==
[2019-03-17 15:16] VITALS: BMI 28.1
[2019-03-21 17:58] VITALS: BP 149/75; PULSE 60; RESP 18; TEMP 36.6; O2SAT 98; BMI 28.3
--- NOTE | 2019-03-21 18:16 | EKG12_ITS ---
Test Reason : CP Blood Pressure : / mmHG Vent. Rate : 058 BPM Atrial Rate : 058 BPM P-R Int : 194 ms QRS Dur : 086 ms QT Int : 442 ms P-R-T Axes : 043 -03 019 degrees QTc Int : 433 ms Sinus bradycardia Otherwise normal ECG Confirmed by WILNER SUERO, JE ([id number]), medical transcription editor KAREN PEREZ ([id number]) on 03/23/2019 11:47:05 AM Referred By: Mitchell Perdue Confirmed By:JE DARBY MD
--- NOTE | 2019-03-21 18:16 | RAD_ITS ---
STUDY: X-RAY CHEST REASON FOR EXAM: Female, 68 years old. Chest pain TECHNIQUE: AP COMPARISON: 03/08/2019 FINDINGS: EKG leads project over the chest. Neurostimulator is stable. The lungs are clear and expanded. There is no demonstrated pleural abnormality. Normal size heart. Normal mediastinum and kylee. Normal visualized pulmonary arteries. There is atherosclerotic tortuosity of the aortic arch and descending thoracic aorta. No acute bony process. There is no demonstrated abnormality of the visualized soft tissue structures of the upper abdomen. RAD/Chest 1 View (Portable) IMPRESSION: Stable, nonacute x-ray examination of the chest. Electronically Signed: Christiano Troncoso MD at 18:33 EDT , Service support ,
[2019-03-21] MEDS: Aspirin 81 MG TAB.CHEW 324 MG PO (18:40)
[2019-03-21 18:59] LABS: Absolute Lymphocyte Count 1.77 X10^3/ul (0.83-4.51); Basophil# 0.04 X10^3/uL; Basophil% 0.7 % (0-1); Eosinophils% 1.9 % (0-5); Hematocrit 29.7 % (37-47); Hemoglobin 9.7 g/dl (12.0-15.0); Lymphocyte # 1.77 X10^3/ul (4.0); Lymphocyte % 32.9 % (19-41); Mean Corp Hgb Conc 32.7 g/gl (32-36); Mean Corpuscular Hgb 30.4 pg (27.0-32.0); Mean Corpuscular Volume 93.1 fL (81-99); Monocyte# 0.52 X10^3/uL; Monocyte% 9.7 % (0-10); Neutrophil # 2.95 X10^3/uL (2.7-7.7); Neutrophil % 54.8 % (47-70); Platelet Count 274 K/mm3 (150-450); RBC Distribution Width CV 14.1 % (11.6-14.6); RBC Distribution Width SD 47.6 fl (35.1-43.9); Red Blood Count 3.19 M/mm3 (4.2-5.4); White Blood Count 5.4 K/mm3 (4.4-11.0)
[2019-03-21 19:00] LABS: POSITIVE COUNT NO; POSITIVE DIFFERENTIAL NO; POSITIVE MORPHOLOGY NO
[2019-03-21 19:02] VITALS: BP 134/67; PULSE 55; RESP 14; O2SAT 97
[2019-03-21 19:12] LABS: Anion Gap 6 (5-15); BUN 29 mg/dL (7-18); BUN/Creat Ratio 29.3 RATIO (10-20); Calcium,Total 8.5 mg/dL (8.5-10.1); Chloride 115 mmol/L (98-107); Creatinine, Serum 0.99 mg/dL (0.55-1.02); EST Glomerular Filtration Rate 59 mL/min (>60); Est Glom Filt Rate - Afr Amer 71 mL/min (>60); Estimated Creatinine Clearance 45.66 ml/min; Glucose 93 mg/dL (74-106); Potassium 3.8 mmol/L (3.5-5.1); Sodium Level 142 mmol/L (136-145)
[2019-03-21 20:00] VITALS: BP 137/67; PULSE 54; RESP 11; O2SAT 97
[2019-03-21 21:00] VITALS: BP 143/71; PULSE 64; RESP 19; O2SAT 98
--- NOTE | 2019-03-21 21:18 | ED.VISSUMM ---
- ER Visit Summary Date of Service: 03/21/19 Chief Complaint: Chest pain History of Present Illness: The patient is a 68 F presenting with chest pain. Patient states she has had intermittent chest pain since yesterday. She states the pain was more continuous today. She has had continuous pain since 11 AM. She describes a burning sensation in her mid chest that goes to her back. She states the back pain feels similar to the pain she was having before her stent placement 2 weeks ago. She has 4 out of 10 pain currently. She states she does not recall anything that makes her pain better or worse. She has associated shortness of breath. She has a history of hypertension, hypercholesterolemia. She had a PTCA/RAFAEL to mid RCA on March 09, 2019. Physical Examination: Vitals are stable. Patient is afebrile. Alert no acute distress. HEENT exam is unremarkable. Neck is supple. Lungs are clear and equal bilaterally. Heart is regular rate and rhythm. Abdomen is soft nontender nondistended. Extremities are unremarkable. Skin is warm and dry. No focal neurologic deficit. Remainder of exam is unremarkable. Emergency Department Course and Treatment: EKG is sinus bradycardia rate of 58 with no acute ischemic changes. Chest x-ray shows no acute process. CBC normal except for hemoglobin 9.7. Chemistries normal except for BUN 29. Troponin is negative. Patient was given aspirin on arrival. On reevaluation she is chest pain-free. Discussed with Dr. Girard. He would like her admitted overnight. He recommends Lovenox. Discussed with the hospitalist for admission. Disposition: Observation Impression: Chest pain This note was generated with Expreem dictation software. It may contain incorrect words, spelling, and punctuation that were not noted in review of the chart prior to signing ED Disposition - Plan for ED Patient: Referrals: Terence Barth Chi, MD [Primary Care Provider] -
--- NOTE | 2019-03-21 21:27 | HP.PCM_ITS ---
Problem List (1) Chest pain Status: Acute (2) Hyperlipidemia Status: Chronic (3) Hypertension Status: Chronic History of Present Illness Date of Admission: 03/21/19 Chief Complaint: chest pain The patient is a 68 year old F with a significant history of hypertension; hyperlipidemia; CAD with drug-eluting stent placed in mid RCA on March 09, 2019 presenting with intermittent moderate intensity substernal chest pain that radiated to her back. On the day of presentation because her chest pain was lasting longer she came to the emergency department. She reports slight nausea. She denies any vomiting or diaphoresis. She describes her chest pain as burning and aching. She thinks that her chest pain was different from her chest pain 2 weeks ago that necessitated stent placement. She thinks that her previous chest pain was associated with sweating and jane nausea as well as heavy breathing. On this presentation her troponin was unremarkable. Her EKG shows sinus bradycardia with heart rate of 58. Cardiology was consulted from the ED. Emergency department doctor cardiology wanted patient to be started on Lovenox. Cardiology will be following patient. Past Medical History Past Medical History (Chronic Problems): Chronic Problems (Last Reviewed 03/21/19 @ 23:50 by Mitchell Perdue MD) Atherosclerotic heart disease of [place] coronary artery without angina pectoris (Chronic) S/P coronary artery stent placement (Chronic ~03/09/19) PTCA/RAFAEL to mid RCA 03/09/19 History of anemia (Chronic) Hyperlipidemia (Chronic) Hypertension (Chronic) Chronic pain (Chronic) History of cholelithiasis (Chronic) Chronic back pain (Chronic) Anemia (Chronic) Degenerative disc disease, cervical (Chronic) Medical History: Medical History (Last Reviewed 03/21/19 @ 23:50 by Mitchell Perdue MD) Atherosclerotic heart disease of [place] coronary artery without angina pectoris (Chronic) I25.10 Allergies atorvastatin [From Lipitor] Adverse Reaction (Verified 03/21/19 18:02) Other muscle pain simvastatin Adverse Reaction (Verified 03/21/19 18:02) Other muscle pain Home Medications: Ambulatory Orders Medication Instructions Recorded Fluoxetine HCl 60 mg PO DAILY 01/11/17 Multivitamin with Minerals 1 each PO DAILY 03/08/19 [Multiple Vitamin] [place]-3 Fatty Acids/Fish Oil [Fish 1 each PO DAILY 03/08/19 Oil 1,000 mg Capsule] Aspirin E.C. [Ecotrin] 81 mg PO DAILY@0800 03/21/19 Atorvastatin Calcium 40 mg PO QHS 03/21/19 Iron Polysaccharide Complex 150 mg PO DAILY 03/21/19 [Ferrex 150] Lisinopril [Zestril] 5 mg PO DAILY 03/21/19 Metoprolol Tartrate [Lopressor 12.5 mg PO BID 03/21/19 (beta abigail)] Ticagrelor [Brilinta] 90 mg PO BID 03/21/19 Surgical History: Surgical History (Last Reviewed 03/21/19 @ 23:50 by Mitchell Perdue MD) H/O spinal fusion Z98.1 S/P ligament repair Z98.890 Both arms Surgical History: cholecystectomy, hysterectomy, rotator cuff repair, - Lives: Spouse/ Significant Other Smoking Status: Never smoker Alcohol: Rare - *Family History Maternal Family History: Family History (Last Reviewed 03/21/19 @ 23:16 by Mitchell Perdue MD) Mother Dementia DVT (deep venous thrombosis) Father CVA (cerebral vascular accident) Brother Hypertension Sister Hypertension History Items: - - mother with dementia Sibling Family History: Family History (Last Reviewed 03/21/19 @ 23:16 by Mitchell Perdue MD) Mother Dementia DVT (deep venous thrombosis) Father CVA (cerebral vascular accident) Brother Hypertension Sister Hypertension History Items: - - father with stroke Review of Systems Constitutional: Denies: Chills, Fever, Weight Change HEENT: Denies: Head Aches, Sinus Congestion, Sinus Drainage Cardiovascular: Reports: Chest Pain. Denies: Palpitations Respiratory: Denies: Cough, Shortness of breath at rest, Sputum production Gastrointestinal: Reports: Nausea - mild. Denies: Abdominal Pain, Vomiting Genitourinary: Denies: Dysuria Musculoskeletal: Reports: Back Pain. Denies: Joint Pain, Joint Tenderness Skin: Denies: Rash, Wounds Neurological: Denies: Numbness, Tingling, Focal weakness Psychiatric: Denies: Anxiety, Depression, Homicidal Ideations, Suicidal Ideations Hematologic/ Lymphatic: Denies: Easy Bruising, Easy Bleeding VTE Information - Inpt Only VTE Present on Admission: No VTE Mechan Device Prophylaxis: None VTE Pharm Prophylaxis ordered?: No Reason prophylaxis not ordered:: Treatment Not Indicated - Started on therpeutic dose of Lovenox for chest Patient Problems: Active and Suspected Problems (Last Reviewed 03/21/19 @ 23:50 by Mitchell Perdue MD) Chest pain (Acute) - Physical Exam General: Alert, Oriented x3, Cooperative HEENT: Atraumatic, PERRLA, EOMI, Normocephalic Neck: Supple, No JVD, Negative Carotid Bruits Lungs: Clear to auscultation, Normal air movement Cardiovascular: Regular rate, No murmurs Abdomen: Bowel Sounds Present, Soft, Non Tender Extremities: No edema, Capillary Refill Less than 3 Seconds Skin: No rashes, No breakdown Musculoskeletal: No Tenderness to Palpation of Joints or Extremities Neurological: Cranial nerves II-XII grossly intact Psych/Mental Status: Normal Affect, Appropriate Vital Signs Temp Pulse Resp BP Pulse Ox 98 F 54 L 11 L 137/67 H 97 03/21/19 17:58 03/21/19 20:00 03/21/19 20:00 03/21/19 20:00 03/21/19 20:00 Oxygen Delivery Method Room Air Weight: 74.843 kg Body Mass Index (BMI) 28.3 Laboratory Tests Past 24 Hrs 03/21/19 03/21/19 18:10 18:10 WBC 5.4 RBC 3.19 L Hgb 9.7 L Hct 29.7 L MCV 93.1 MCH 30.4 MCHC 32.7 RDW 14.1 RDW Differential 47.6 H Plt Count 274 MPV 10.0 Immature Gran % (Auto) 0.000 Neut % (Auto) 54.8 Lymph % (Auto) 32.9 [place] % (Auto) 9.7 Eos % (Auto) 1.9 Baso % (Auto) 0.7 Absolute Neuts (auto) 3.0 Absolute Lymphs (auto) 1.77 Total Counted Not Reportable Sodium 142 Potassium 3.8 Chloride 115 H Carbon Dioxide 21.0 Anion Gap 6 BUN 29 H Creatinine 0.99 Estim Creat Clear Calc 45.66 Est GFR (MDRD) Af Amer 71 Est GFR (MDRD) Non-Af 59 L BUN/Creatinine Ratio 29.3 H Glucose 93 Calcium 8.5 Troponin I < 0.015 Assessment/Plan All Active Problems (Last Reviewed 03/21/19 @ 23:50 by Mitchell Perdue MD) Chest pain (Acute) Cellulitis of right hand (Acute) Cat bite of finger (Acute) Segmental and somatic dysfunction of cervical region (Acute) Segmental and somatic dysfunction of thoracic region (Acute) Cervicogenic headache (Acute) Non-STEMI (non-ST elevated myocardial infarction) (Acute) NSTEMI (non-ST elevated myocardial infarction) (Acute) Murmur, cardiac (Acute) The patient is a 68 year old F with a significant history of hypertension; hyperlipidemia; CAD with drug-eluting stent placed in mid RCA on March 09, 2019 presenting with intermittent moderate intensity substernal chest pain that radiated to her back. Chest Pain Admit to a monitored bed on PCU CXR independently reviewed confirms no acute cardiopulmonary process. EKG independently reviewed confirms sinus bradycardia with heart rate of 58. ASA 81 mg p.o. daily SL NTG 0.4 mg prn as needed for chest pain Morphine as needed for pain Serial cardiac enzymes Stat EKG as needed for chest pain Lovenox subcutaneous therapeutic dose continued. Lisinopril and metoprolol continued. Atorvastatin continued. Home Brilinta continued Different diagnosis include GERD. Will start patient on a trial of Protonix. Hypertension On presentation her blood pressure was not within goal Lisinopril and metoprolol continued Trend blood pressure and adjust blood pressure medication. Hyperlipidemia Atorvastatin continued continued Depression Fluoxetine continued DVT prophylaxis Not indicated since patient has been started on therapeutic dose of Lovenox for her chest pain Code Visit OBSV E&M: 35536 Initial observation care L3
[2019-03-21] MEDS: Enoxaparin 80 MG/0.8 ML Syringe 70 MG SC (21:35)
--- NOTE | 2019-03-21 22:41 | EKG12_ITS ---
Test Reason : CP ADMISSION Blood Pressure : / mmHG Vent. Rate : 056 BPM Atrial Rate : 056 BPM P-R Int : 206 ms QRS Dur : 084 ms QT Int : 454 ms P-R-T Axes : 042 008 000 degrees QTc Int : 438 ms Sinus bradycardia Cannot rule out Inferior infarct , age undetermined Abnormal ECG Confirmed by RAZA SUERO, KERRY ([id number]), editorial project manager KAREN PEREZ ([id number] on 03/27/2019 6:46:49 AM Referred By: Mitchell Perdue Confirmed By:KERRY PERSON MD
[2019-03-21 22:42] VITALS: BP 139/81; PULSE 61; PULSE 62; RESP 16; TEMP 37; O2SAT 99; BMI 28.0
[2019-03-21 23:02] LABS: International Normalized Ratio 0.9; Prothrombin Time (Protime)PT. 12.3 SECONDS (11.7-14.9)
[2019-03-22] VITALS (13 sets, daily range): BP systolic 114–128; BP diastolic 52–73; PULSE 51–65; RESP 16–17; TEMP 36.2–37.1; O2SAT 96–98
[2019-03-22] MEDS: Pantoprazole Sodium 40 MG Tablet PO (00:18)
[2019-03-22] MEDS: TICAGRELOR 90 MG TABLET PO ×3 (00:18→22:13)
[2019-03-22] MEDS: Acetaminophen 325 MG Tablet 650 MG PO ×3 (04:07→23:20)
--- NOTE | 2019-03-22 07:11 | EKG12_ITS ---
Test Reason : CP ADMIT Blood Pressure : / mmHG Vent. Rate : 056 BPM Atrial Rate : 056 BPM P-R Int : 210 ms QRS Dur : 088 ms QT Int : 462 ms P-R-T Axes : 052 009 -07 degrees QTc Int : 445 ms Sinus bradycardia with 1st degree A-V block Nonspecific T wave abnormality Confirmed by RAZA SUERO, KERRY ([id number]), assignment desk editor KAREN PEREZ ([id number] on 03/27/2019 7:00:54 AM Referred By: Mitchell Perdue Confirmed By:KERRY PERSON MD
[2019-03-22] MEDS: Aspirin E.C. 81 MG Tablet PO (08:44)
[2019-03-22] MEDS: Metoprolol Tartrate 25 MG Tablet 12.5 MG PO ×2 (08:45→22:13)
[2019-03-22] MEDS: Iron Polysaccharide Complex 150 MG CAPSULE PO (08:45)
[2019-03-22] MEDS: Lisinopril 5 MG Tablet PO (08:46)
[2019-03-22] MEDS: FLUoxetine 20 MG Capsule 60 MG PO (08:46)
[2019-03-22] MEDS: Enoxaparin 80 MG/0.8 ML Syringe 75 MG SC (08:46)
--- NOTE | 2019-03-22 11:27 | PCM.CONS.C ---
Problem List (1) Chest pain Status: Acute Qualifiers: Chest pain type: precordial pain Qualified Code(s): R07.2 - Precordial pain (2) CAD (coronary artery disease), [place] coronary artery Status: Chronic Qualifiers: [place] vs. transplanted heart: [place] heart (3) S/P coronary artery stent placement Status: Chronic Comment: PTCA/RAFAEL to mid RCA 03/09/19 (4) Valvular heart disease Status: Acute (5) Hyperlipidemia Status: Chronic (6) Hypertension Status: Chronic (7) History of anemia Status: Chronic Reason for Consult Date of Consultation: 03/22/19 History of Present Illness: The patient is a 68 year old white female with a past medical history of underlying hyperlipidemia, hypertension, a non-ST segment elevation [place] (approximately 03-08-19), CAD, status post RCA PCI (03-09-19), superimposed upon a history of anemia who presents for evaluation of chest discomfort. She states that since discharge she had been doing well, have returned to work, however over the last few days she has noted intermittent lower precordial chest burning sensation that does appear to radiate to some degree towards her back. She denies any radiation to her neck/jaw, shoulders, or upper extremities. She states she may have felt somewhat nauseated but did not have emesis. She has had no acute change in her respiratory status nor has she had any obvious diaphoresis. She states the symptoms have waxed and waned and do not discern appear to correlate with any particular food/meal or activity. She states with activity she has not noted any of her symptoms worsening. There is been no symptoms at night. There is been no orthopnea or PND or peripheral pitting edema. She states she has been taking her medications as prescribed. She presented to the emergency department for further evaluation. She was subsequently placed in the PCU for further evaluation. Her cardiac enzymes have been negative. Her ECGs have demonstrated sinus rhythm/sinus bradycardia with a nonspecific T wave change with no obvious changes on repeat ECGs. [] Past Medical History Allergies/Adverse Reactions: Allergies simvastatin Adverse Reaction (Verified 03/21/19 18:02) Other muscle pain Home Medications: Ambulatory Orders Medication Instructions Recorded Fluoxetine HCl 60 mg PO DAILY 01/11/17 Multivitamin with Minerals 1 each PO DAILY 03/08/19 [Multiple Vitamin] [place]-3 Fatty Acids/Fish Oil [Fish 1 each PO DAILY 03/08/19 Oil 1,000 mg Capsule] Aspirin E.C. [Ecotrin] 81 mg PO DAILY@0800 03/21/19 Atorvastatin Calcium 40 mg PO QHS 03/21/19 Iron Polysaccharide Complex 150 mg PO DAILY 03/21/19 [Ferrex 150] Lisinopril [Zestril] 5 mg PO DAILY 03/21/19 Metoprolol Tartrate [Lopressor 12.5 mg PO BID 03/21/19 (beta abigail)] Ticagrelor [Brilinta] 90 mg PO BID 03/21/19 Past Medical History (Chronic Problems): Chronic Problems (Last Reviewed 03/21/19 @ 23:50 by Mitchell Perdue MD) CAD (coronary artery disease), [place] coronary artery (Chronic) Atherosclerotic heart disease of [place] coronary artery without angina pectoris (Chronic) S/P coronary artery stent placement (Chronic ~03/09/19) PTCA/RAFAEL to mid RCA 03/09/19 History of anemia (Chronic) Hyperlipidemia (Chronic) Hypertension (Chronic) Chronic pain (Chronic) History of cholelithiasis (Chronic) Chronic back pain (Chronic) Anemia (Chronic) Degenerative disc disease, cervical (Chronic) Surgical History: cholecystectomy, hysterectomy, rotator cuff repair, - - *Family History Maternal Family History: Family History (Last Reviewed 03/21/19 @ 23:16 by Mitchell Perdue MD) Mother Dementia DVT (deep venous thrombosis) Father CVA (cerebral vascular accident) Brother Hypertension Sister Hypertension History Items: - - mother with dementia Sibling Family History: Family History (Last Reviewed 03/21/19 @ 23:16 by Mitchell Perdue MD) Mother Dementia DVT (deep venous thrombosis) Father CVA (cerebral vascular accident) Brother Hypertension Sister Hypertension History Items: - - father with stroke Lives: Spouse/ Significant Other Smoking Status: Never smoker Tobacco Use: Non-smoker Alcohol: Rare Drugs: None Review of Systems - Review of Systems General: Denies: Fever, Night Sweats, Fatigue Cardiovascular: Reports: Chest Discomfort, Chest Discomfort at Rest. Denies: Shortness of Breath, Orthopnea, PND, Peripheral Edema, Palpitations, Lightheadedness, Dizziness, Near Syncope, Syncope Respiratory: Denies: Cough, Sputum Production, Hemoptysis Gastrointestinal: Reports: Nausea. Denies: Hematemesis, Hematochezia, Melena Genitourinary: Denies: Dysuria, Hematuria Skin: Denies: Rash Subjectve: This is a pleasant 68-year-old white female who appears to be resting comfortably at the moment in no acute distress. Objective: Vital Signs Temp Pulse Resp BP Pulse Ox 98.1 F 60 17 118/68 97 03/22/19 08:43 03/22/19 08:45 03/22/19 08:43 03/22/19 08:43 03/22/19 08:43 Oxygen Delivery Method Room Air Weight: 163 lb 5.8 oz Body Mass Index (BMI) 28.0 Intake and Output for Last 24 Hours 03/20/19 03/21/19 03/22/19 23:59 23:59 23:59 Intake Total 480 / 480 Balance 480 / 480 General: Awake, Alert, Oriented x 3, Cooperative, No Acute Distress HEENT: Atraumatic, Normocephalic, PERRL, EOMI, Sclera Non Icteric Oral: Moist Mucosa Neck: Supple, Good ROM, No JVD Lungs: Clear to auscultation Cardiovascular: Regular Rhythm, Normal S1, Normal S2 Murmur Murmur: Grade 2/6, Soft, Mid Systolic, LLSB, LVOT, Sternal Notch Vascular: No Carotid Bruits Abdomen: Bowel Sounds Present, Soft, Non Tender Extremities: No Cyanosis, No Clubbing, No edema, - - Right medial thigh: Fading ecchymoses Skin: - - Right medial thigh: Fading ecchymoses Neurological: No Focal Motor or Sensory Deficit Psych/Mental Status: Appropriate 03/21/19 18:10: WBC 5.4, RBC 3.19 L, Hgb 9.7 L, Hct 29.7 L, MCV 93.1, MCH 30.4, MCHC 32.7, RDW 14.1, RDW Differential 47.6 H, Plt Count 274, MPV 10.0, Immature Gran % (Auto) 0.000, Neut % (Auto) 54.8, Lymph % (Auto) 32.9, [place] % (Auto) 9.7, Eos % (Auto) 1.9, Baso % (Auto) 0.7, Absolute Neuts (auto) 3.0, Total Counted Not Reportable 03/21/19 18:10: Sodium 142, Potassium 3.8, Chloride 115 H, Carbon Dioxide 21.0, Anion Gap 6, BUN 29 H, Creatinine 0.99, Est GFR (MDRD) Af Amer 71, Est GFR (MDRD) Non-Af 59 L, BUN/Creatinine Ratio 29.3 H, Glucose 93, Calcium 8.5, Troponin I < 0.015 03/21/19 18:10: PT 12.3, INR 0.9 03/21/19 21:55: Troponin I < 0.015 03/22/19 01:00: Troponin I < 0.015 Rhythm: Sinus rhythm EKG: As noted above ECHO: 03-09-19: Left ventricle normal with an LVEF 55%; mild to moderate MR; mild TR; mild aortic valve stenosis; estimated RV systolic pressure of 26 mmHg; decreased diastolic compliance Cardiac Cath: 03-09-19 CORONARY ANGIOGRAPHY DOMINANCE: Right Dominant LEFT HEART ASSESSMENT Left Ventricular Ejection Fraction: by LV Gram 55 % Normal LV wall motion Elevated Left Ventricular End Diastolic Pressure LVEDP: 27 mmHg LEFT MAIN: Angiographically normal LEFT ANTERIOR DESCENDING ARTERY: PROX LAD: Mild calcification, Mild luminal irregularities CIRCUMFLEX ARTERY: Mild luminal irregularities RIGHT CORONARY ARTERY: Mild luminal irregularities MID RCA: Eccentric: 90 % Stenosis VALVE FINDINGS: LV pullback procedure: no obvious hemodynamic findings suggestive of hemodynamically significant AV stenosis Normal Mitral Valve function AORTIC ROOT: Angiographically normal PCI: 03-09-19 CONCLUSIONS Successful PTCA/RAFAEL to mid RCA with a 3.0 x 20 Promus Syergy at 16 [address]; 85%-->0%, no dissection. Manual sheath removal given spinal stimulator and tortous iliacs. CXR: Preliminary evaluation: No acute cardiopulmonary disease process appreciated: Neurostimulator in place: Please see official report Assessment/Plan 1. Chest pain The patient does have chest pain. It is unclear whether this is related to her cardiovascular disease process with respect to her underlying CAD and/or any concerns of post PCI in-stent restenosis. At the same time she does not appear to have classic symptoms for an underlying post acute coronary syndrome myopericarditis. There may be concerns this may be noncardiac and potentially gastrointestinal related. At the present time from a cardiac standpoint her rule out [place] protocol has been negative thus far by cardiac enzymes and ECG. She will continue to be monitored. She will continue medical therapy. She will have an exercise tolerance test/imaging study to further evaluate her coronary anatomy and physiology. Depending upon the findings she may or may not need a repeat diagnostic cardiac catheterization versus further noncardiac evaluation. 2. CAD status post non-ST segment elevation [place] status post RCA PTCA/RAFAEL She is recently undergone extensive noninvasive and invasive cardiovascular evaluation as noted above. At the moment she is undergoing reevaluation for chest discomfort. She will continue her medical management and evaluation as noted above. 3. Valvular heart disease She does have an element of underlying valvular heart disease as described based upon her examination and her echocardiographic studies. She will continue to be followed. 4. Hyperlipidemia We will continue risk factor evaluation care as deemed appropriate. 5. Hypertension She will continue medical management with adjustment as deemed appropriate. 6. Anemia She continues to follow with hematology/oncology for her anemia. Comment: The above was discussed reviewed with the patient and the [facility] staff. This note was generated with [employer] dictation software. It may contain incorrect words, spelling, and punctuation that were not noted in checking the note before signing.
--- NOTE | 2019-03-22 11:31 | CON.PCM_ITS ---
Problem List (1) Chest pain Status: Acute Qualifiers: Chest pain type: precordial pain Qualified Code(s): R07.2 - Precordial pain (2) CAD (coronary artery disease), [place] coronary artery Status: Chronic Qualifiers: [place] vs. transplanted heart: [place] heart (3) S/P coronary artery stent placement Status: Chronic Comment: PTCA/RAFAEL to mid RCA 03/09/19 (4) Valvular heart disease Status: Acute (5) Hyperlipidemia Status: Chronic (6) Hypertension Status: Chronic (7) History of anemia Status: Chronic Reason for Consult Date of Consultation: 03/22/19 History of Present Illness: The patient is a 68 year old white female with a past medical history of underlying hyperlipidemia, hypertension, a non-ST segment elevation [place] (approximately 03-08-19), CAD, status post RCA PCI (03-09-19), superimposed upon a history of anemia who presents for evaluation of chest discomfort. She states that since discharge she had been doing well, have returned to work, however over the last few days she has noted intermittent lower precordial chest burning sensation that does appear to radiate to some degree towards her back. She denies any radiation to her neck/jaw, shoulders, or upper extremities. She states she may have felt somewhat nauseated but did not have emesis. She has had no acute change in her respiratory status nor has she had any obvious diaphoresis. She states the symptoms have waxed and waned and do not discern appear to correlate with any particular food/meal or activity. She states with activity she has not noted any of her symptoms worsening. There is been no symptoms at night. There is been no orthopnea or PND or peripheral pitting edema. She states she has been taking her medications as prescribed. She presented to the emergency department for further evaluation. She was subsequently placed in the PCU for further evaluation. Her cardiac enzymes have been negative. Her ECGs have demonstrated sinus rhythm/sinus bradycardia with a nonspecific T wave change with no obvious changes on repeat ECGs. [] Past Medical History Allergies/Adverse Reactions: Allergies simvastatin Adverse Reaction (Verified 03/21/19 18:02) Other muscle pain Home Medications: Ambulatory Orders Medication Instructions Recorded Fluoxetine HCl 60 mg PO DAILY 01/11/17 Multivitamin with Minerals 1 each PO DAILY 03/08/19 [Multiple Vitamin] [place]-3 Fatty Acids/Fish Oil [Fish 1 each PO DAILY 03/08/19 Oil 1,000 mg Capsule] Aspirin E.C. [Ecotrin] 81 mg PO DAILY@0800 03/21/19 Atorvastatin Calcium 40 mg PO QHS 03/21/19 Iron Polysaccharide Complex 150 mg PO DAILY 03/21/19 [Ferrex 150] Lisinopril [Zestril] 5 mg PO DAILY 03/21/19 Metoprolol Tartrate [Lopressor 12.5 mg PO BID 03/21/19 (beta abigail)] Ticagrelor [Brilinta] 90 mg PO BID 03/21/19 Past Medical History (Chronic Problems): Chronic Problems (Last Reviewed 03/21/19 @ 23:50 by Mitchell Perdue MD) CAD (coronary artery disease), [place] coronary artery (Chronic) Atherosclerotic heart disease of [place] coronary artery without angina pectoris (Chronic) S/P coronary artery stent placement (Chronic ~03/09/19) PTCA/RAFAEL to mid RCA 03/09/19 History of anemia (Chronic) Hyperlipidemia (Chronic) Hypertension (Chronic) Chronic pain (Chronic) History of cholelithiasis (Chronic) Chronic back pain (Chronic) Anemia (Chronic) Degenerative disc disease, cervical (Chronic) Surgical History: cholecystectomy, hysterectomy, rotator cuff repair, - - *Family History Maternal Family History: Family History (Last Reviewed 03/21/19 @ 23:16 by Mitchell Perdue MD) Mother Dementia DVT (deep venous thrombosis) Father CVA (cerebral vascular accident) Brother Hypertension Sister Hypertension History Items: - - mother with dementia Sibling Family History: Family History (Last Reviewed 03/21/19 @ 23:16 by Mitchell Perdue MD) Mother Dementia DVT (deep venous thrombosis) Father CVA (cerebral vascular accident) Brother Hypertension Sister Hypertension History Items: - - father with stroke Lives: Spouse/ Significant Other Smoking Status: Never smoker Tobacco Use: Non-smoker Alcohol: Rare Drugs: None Review of Systems - Review of Systems General: Denies: Fever, Night Sweats, Fatigue Cardiovascular: Reports: Chest Discomfort, Chest Discomfort at Rest. Denies: Shortness of Breath, Orthopnea, PND, Peripheral Edema, Palpitations, Lightheadedness, Dizziness, Near Syncope, Syncope Respiratory: Denies: Cough, Sputum Production, Hemoptysis Gastrointestinal: Reports: Nausea. Denies: Hematemesis, Hematochezia, Melena Genitourinary: Denies: Dysuria, Hematuria Skin: Denies: Rash Subjectve: This is a pleasant 68-year-old white female who appears to be resting comfortably at the moment in no acute distress. Objective: Vital Signs Temp Pulse Resp BP Pulse Ox 98.1 F 60 17 118/68 97 03/22/19 08:43 03/22/19 08:45 03/22/19 08:43 03/22/19 08:43 03/22/19 08:43 Oxygen Delivery Method Room Air Weight: 163 lb 5.8 oz Body Mass Index (BMI) 28.0 Intake and Output for Last 24 Hours 03/20/19 03/21/19 03/22/19 23:59 23:59 23:59 Intake Total 480 / 480 Balance 480 / 480 General: Awake, Alert, Oriented x 3, Cooperative, No Acute Distress HEENT: Atraumatic, Normocephalic, PERRL, EOMI, Sclera Non Icteric Oral: Moist Mucosa Neck: Supple, Good ROM, No JVD Lungs: Clear to auscultation Cardiovascular: Regular Rhythm, Normal S1, Normal S2 Murmur Murmur: Grade 2/6, Soft, Mid Systolic, LLSB, LVOT, Sternal Notch Vascular: No Carotid Bruits Abdomen: Bowel Sounds Present, Soft, Non Tender Extremities: No Cyanosis, No Clubbing, No edema, - - Right medial thigh: Fading ecchymoses Skin: - - Right medial thigh: Fading ecchymoses Neurological: No Focal Motor or Sensory Deficit Psych/Mental Status: Appropriate 03/21/19 18:10: WBC 5.4, RBC 3.19 L, Hgb 9.7 L, Hct 29.7 L, MCV 93.1, MCH 30.4, MCHC 32.7, RDW 14.1, RDW Differential 47.6 H, Plt Count 274, MPV 10.0, Immature Gran % (Auto) 0.000, Neut % (Auto) 54.8, Lymph % (Auto) 32.9, [place] % (Auto) 9.7, Eos % (Auto) 1.9, Baso % (Auto) 0.7, Absolute Neuts (auto) 3.0, Total Counted Not Reportable 03/21/19 18:10: Sodium 142, Potassium 3.8, Chloride 115 H, Carbon Dioxide 21.0, Anion Gap 6, BUN 29 H, Creatinine 0.99, Est GFR (MDRD) Af Amer 71, Est GFR (MDRD) Non-Af 59 L, BUN/Creatinine Ratio 29.3 H, Glucose 93, Calcium 8.5, Troponin I < 0.015 03/21/19 18:10: PT 12.3, INR 0.9 03/21/19 21:55: Troponin I < 0.015 03/22/19 01:00: Troponin I < 0.015 Rhythm: Sinus rhythm EKG: As noted above ECHO: 03-09-19: Left ventricle normal with an LVEF 55%; mild to moderate MR; mild TR; mild aortic valve stenosis; estimated RV systolic pressure of 26 mmHg; decreased diastolic compliance Cardiac Cath: 03-09-19 CORONARY ANGIOGRAPHY DOMINANCE: Right Dominant LEFT HEART ASSESSMENT Left Ventricular Ejection Fraction: by LV Gram 55 % Normal LV wall motion Elevated Left Ventricular End Diastolic Pressure LVEDP: 27 mmHg LEFT MAIN: Angiographically normal LEFT ANTERIOR DESCENDING ARTERY: PROX LAD: Mild calcification, Mild luminal irregularities CIRCUMFLEX ARTERY: Mild luminal irregularities RIGHT CORONARY ARTERY: Mild luminal irregularities MID RCA: Eccentric: 90 % Stenosis VALVE FINDINGS: LV pullback procedure: no obvious hemodynamic findings suggestive of hemodynamically significant AV stenosis Normal Mitral Valve function AORTIC ROOT: Angiographically normal PCI: 03-09-19 CONCLUSIONS Successful PTCA/RAFAEL to mid RCA with a 3.0 x 20 Promus Syergy at 16 [address]; 85%-->0%, no dissection. Manual sheath removal given spinal stimulator and tortous iliacs. CXR: Preliminary evaluation: No acute cardiopulmonary disease process appreciated: Neurostimulator in place: Please see official report Assessment/Plan 1. Chest pain The patient does have chest pain. It is unclear whether this is related to her cardiovascular disease process with respect to her underlying CAD and/or any concerns of post PCI in-stent restenosis. At the same time she does not appear to have classic symptoms for an underlying post acute coronary syndrome myopericarditis. There may be concerns this may be noncardiac and potentially gastrointestinal related. At the present time from a cardiac standpoint her rule out [place] protocol has been negative thus far by cardiac enzymes and ECG. She will continue to be monitored. She will continue medical therapy. She will have an exercise tolerance test/imaging study to further evaluate her coronary anatomy and physiology. Depending upon the findings she may or may not need a repeat diagnostic cardiac catheterization versus further noncardiac evaluation. 2. CAD status post non-ST segment elevation [place] status post RCA PTCA/RAFAEL She is recently undergone extensive noninvasive and invasive cardiovascular evaluation as noted above. At the moment she is undergoing reevaluation for chest discomfort. She will continue her medical management and evaluation as noted above. 3. Valvular heart disease She does have an element of underlying valvular heart disease as described based upon her examination and her echocardiographic studies. She will continue to be followed. 4. Hyperlipidemia We will continue risk factor evaluation care as deemed appropriate. 5. Hypertension She will continue medical management with adjustment as deemed appropriate. 6. Anemia She continues to follow with hematology/oncology for her anemia. Comment: The above was discussed reviewed with the patient and the [facility] staff. This note was generated with [employer] dictation software. It may contain incorrect words, spelling, and punctuation that were not noted in checking the note before signing.
--- NOTE | 2019-03-22 13:48 | PCM.PN.HOSP ---
Patient Problems: Active and Suspected Problems (Last Reviewed 03/21/19 @ 23:50 by Mitchell Perdue MD) Chest pain (Acute) Valvular heart disease (Acute) Subjective: Patient complain of burning chest pain mainly in epigastric or retrosternal region, with radiation to back. Chest pain does not change in intensity with regards to position or exertion. Patient had stenting mid RCA about 2 weeks ago on March 09, 2019. She denies history of chronic peptic ulcer disease or GERD. Chest pain has much improved. Vitals/I&O's: Vital Signs Temp Pulse Resp BP Pulse Ox 98.1 F 51 L 17 118/68 97 03/22/19 08:43 03/22/19 11:48 03/22/19 08:43 03/22/19 08:43 03/22/19 08:43 Oxygen Delivery Method Room Air Weight: 163 lb 5.8 oz Body Mass Index (BMI) 28.0 Intake and Output for Last 24 Hours 03/20/19 03/21/19 03/22/19 23:59 23:59 23:59 Intake Total 905 / 905 Balance 905 / 905 General: Alert, Oriented x3, Cooperative HEENT: Atraumatic, PERRLA, EOMI, Normocephalic Neck: Supple, No JVD, Negative Carotid Bruits Lungs: Clear to auscultation, Normal air movement, No rhonchi, No wheeze, No rales Cardiovascular: Regular rate, Regular Rhythm, Normal S1, Normal S2, No murmurs Abdomen: Bowel Sounds Present, Soft, Non Tender, Non-Distended Extremities: No edema, Capillary Refill Less than 3 Seconds Skin: No rashes, No breakdown Musculoskeletal: No Tenderness to Palpation of Joints or Extremities, Arthritic Changes Neurological: Cranial nerves II-XII grossly intact, Deep Tendon Reflexes 2+/4 and Symmetrical, Neuro grossly intact Psych/Mental Status: Normal Affect, Appropriate Laboratory Results 03/21/19 18:10: WBC 5.4, RBC 3.19 L, Hgb 9.7 L, Hct 29.7 L, MCV 93.1, MCH 30.4, MCHC 32.7, RDW 14.1, RDW Differential 47.6 H, Plt Count 274, MPV 10.0, Immature Gran % (Auto) 0.000, Neut % (Auto) 54.8, Lymph % (Auto) 32.9, Ware % (Auto) 9.7, Eos % (Auto) 1.9, Baso % (Auto) 0.7, Absolute Neuts (auto) 3.0, Absolute Lymphs (auto) 1.77, Total Counted Not Reportable 03/21/19 18:10: Sodium 142, Potassium 3.8, Chloride 115 H, Carbon Dioxide 21.0, Anion Gap 6, BUN 29 H, Creatinine 0.99, Estim Creat Clear Calc 45.66, Est GFR (MDRD) Af Amer 71, Est GFR (MDRD) Non-Af 59 L, BUN/Creatinine Ratio 29.3 H, Glucose 93, Calcium 8.5, Troponin I < 0.015 03/21/19 18:10: PT 12.3, INR 0.9 03/21/19 21:55: Troponin I < 0.015 03/22/19 01:00: Troponin I < 0.015 Current Medications Acetaminophen (Tylenol) 650 mg PO Q6H PRN PRN PRN Reason: Mild pain 1-3/Temp > 100.7 F Last Admin: 03/22/19 13:07 Dose: 650 mg Al Hydroxide/Mg Hydroxide (Mylanta Ii) 30 ml PO Q6H PRN PRN PRN Reason: Gastric Burning Aspirin (Ecotrin) 81 mg PO DAILY@0800 [facility] Last Admin: 03/22/19 08:44 Dose: 81 mg Atorvastatin Calcium (Lipitor) 40 mg PO QHS [facility] Dextrose (D50w Syringe) 0 gm IV X1 PRN; Protocol PRN Reason: Hypoglycemia Enoxaparin Sodium (Lovenox) 75 mg SC Q12 [facility] Last Admin: 03/22/19 08:46 Dose: 75 mg Fluoxetine HCl (Prozac) 60 mg PO DAILY [facility] Last Admin: 03/22/19 08:46 Dose: 60 mg Glucagon () 1 mg IM .X1 PRN PRN Reason: Hypoglycemia Lisinopril (Zestril) 5 mg PO DAILY [facility] Last Admin: 03/22/19 08:46 Dose: 5 mg Melatonin (Melatonin) 3 mg PO QHS PRN PRN PRN Reason: INSOMNIA Metoprolol Tartrate (Lopressor (Beta Denis)) 12.5 mg PO BID [facility] Last Admin: 03/22/19 08:45 Dose: 12.5 mg Morphine Sulfate () 2 mg IV Q3H PRN PRN PRN Reason: Severe Pain (7-10/10) Nitroglycerin (Nitrostat) 0.4 mg SUBLINGUAL Q5M PRN PRN Reason: CARDIAC/CHEST PAIN Ondansetron HCl (Zofran) 4 mg IV Q8H PRN PRN PRN Reason: NAUSEA/VOMITING Pantoprazole Sodium (Protonix) 40 mg PO DAILY [facility] Last Admin: 03/22/19 00:18 Dose: 40 mg Polysaccharide Iron Complex (Ferrex 150) 150 mg PO DAILY [facility] Last Admin: 03/22/19 08:45 Dose: 150 mg Sodium Chloride () 5 - 15 ml IV UD PRN PRN Reason: SALINE FLUSH Ticagrelor (Brilinta) 90 mg PO BID [facility] Last Admin: 03/22/19 08:45 Dose: 90 mg Medical Necessity - Tobacco Use Smoking Status: Never smoker Tobacco Use: Non-smoker Assessment/Plan All Active Problems (Last Reviewed 03/21/19 @ 23:50 by Mitchell Perdue MD) Chest pain (Acute) Valvular heart disease (Acute) Cellulitis of right hand (Acute) Cat bite of finger (Acute) Segmental and somatic dysfunction of cervical region (Acute) Segmental and somatic dysfunction of thoracic region (Acute) Cervicogenic headache (Acute) Non-STEMI (non-ST elevated myocardial infarction) (Acute) NSTEMI (non-ST elevated myocardial infarction) (Acute) Murmur, cardiac (Acute) This is a 68-year-old female with history of dyslipidemia, hypertension, NSTEMI status post RCA PCI (03-09-19), underlying chronic anemia was admitted with burning chest pain with radiation to back. ECG shows sinus rhythm/sinus bradycardia with nonspecific ST-T changes. 1. Atypical chest pain with non-STEMI and recent mid RCA stent: Serial troponin enzymes are negative. Scheduled for nuclear stress test tomorrow morning. Most probably it seems either GERD/peptic ulcer disease. May need outpatient EGD. Empirically started on PPI. Continue home cardiac medications aspirin, Brilinta, lisinopril and metoprolol. 2. Hypertension: Blood pressure is controlled 3. Dyslipidemia: On atorvastatin 4. Depression: On fluoxetine 5. DVT prophylaxis: On Lovenox 40 mg subcu daily. Laboratory Results 03/21/19 18:10: WBC 5.4, RBC 3.19 L, Hgb 9.7 L, Hct 29.7 L, MCV 93.1, MCH 30.4, MCHC 32.7, RDW 14.1, RDW Differential 47.6 H, Plt Count 274, MPV 10.0, Immature Gran % (Auto) 0.000, Neut % (Auto) 54.8, Lymph % (Auto) 32.9, Ware % (Auto) 9.7, Eos % (Auto) 1.9, Baso % (Auto) 0.7, Absolute Neuts (auto) 3.0, Absolute Lymphs (auto) 1.77, Total Counted Not Reportable 03/21/19 18:10: Sodium 142, Potassium 3.8, Chloride 115 H, Carbon Dioxide 21.0, Anion Gap 6, BUN 29 H, Creatinine 0.99, Estim Creat Clear Calc 45.66, Est GFR (MDRD) Af Amer 71, Est GFR (MDRD) Non-Af 59 L, BUN/Creatinine Ratio 29.3 H, Glucose 93, Calcium 8.5, Troponin I < 0.015 03/21/19 18:10: PT 12.3, INR 0.9 03/21/19 21:55: Troponin I < 0.015 03/22/19 01:00: Troponin I < 0.015 Code Visit OBSV E&M: 68170 Observ/hosp same date L2
--- NOTE | 2019-03-22 13:54 | PN_ITS ---
Patient Problems: Active and Suspected Problems (Last Reviewed 03/21/19 @ 23:50 by Mitchell Perdue MD) Chest pain (Acute) Valvular heart disease (Acute) Subjective: Patient complain of burning chest pain mainly in epigastric or retrosternal region, with radiation to back. Chest pain does not change in intensity with regards to position or exertion. Patient had stenting mid RCA about 2 weeks ago on March 09, 2019. She denies history of chronic peptic ulcer disease or GERD. Chest pain has much improved. Vitals/I&O's: Vital Signs Temp Pulse Resp BP Pulse Ox 98.1 F 51 L 17 118/68 97 03/22/19 08:43 03/22/19 11:48 03/22/19 08:43 03/22/19 08:43 03/22/19 08:43 Oxygen Delivery Method Room Air Weight: 163 lb 5.8 oz Body Mass Index (BMI) 28.0 Intake and Output for Last 24 Hours 03/20/19 03/21/19 03/22/19 23:59 23:59 23:59 Intake Total 905 / 905 Balance 905 / 905 General: Alert, Oriented x3, Cooperative HEENT: Atraumatic, PERRLA, EOMI, Normocephalic Neck: Supple, No JVD, Negative Carotid Bruits Lungs: Clear to auscultation, Normal air movement, No rhonchi, No wheeze, No rales Cardiovascular: Regular rate, Regular Rhythm, Normal S1, Normal S2, No murmurs Abdomen: Bowel Sounds Present, Soft, Non Tender, Non-Distended Extremities: No edema, Capillary Refill Less than 3 Seconds Skin: No rashes, No breakdown Musculoskeletal: No Tenderness to Palpation of Joints or Extremities, Arthritic Changes Neurological: Cranial nerves II-XII grossly intact, Deep Tendon Reflexes 2+/4 and Symmetrical, Neuro grossly intact Psych/Mental Status: Normal Affect, Appropriate Laboratory Results 03/21/19 18:10: WBC 5.4, RBC 3.19 L, Hgb 9.7 L, Hct 29.7 L, MCV 93.1, MCH 30.4, MCHC 32.7, RDW 14.1, RDW Differential 47.6 H, Plt Count 274, MPV 10.0, Immature Gran % (Auto) 0.000, Neut % (Auto) 54.8, Lymph % (Auto) 32.9, [place] % (Auto) 9.7, Eos % (Auto) 1.9, Baso % (Auto) 0.7, Absolute Neuts (auto) 3.0, Absolute Lymphs (auto) 1.77, Total Counted Not Reportable 03/21/19 18:10: Sodium 142, Potassium 3.8, Chloride 115 H, Carbon Dioxide 21.0, Anion Gap 6, BUN 29 H, Creatinine 0.99, Estim Creat Clear Calc 45.66, Est GFR (MDRD) Af Amer 71, Est GFR (MDRD) Non-Af 59 L, BUN/Creatinine Ratio 29.3 H, Glucose 93, Calcium 8.5, Troponin I < 0.015 03/21/19 18:10: PT 12.3, INR 0.9 03/21/19 21:55: Troponin I < 0.015 03/22/19 01:00: Troponin I < 0.015 Current Medications Acetaminophen (Tylenol) 650 mg PO Q6H PRN PRN PRN Reason: Mild pain 1-3/Temp > 100.7 F Last Admin: 03/22/19 13:07 Dose: 650 mg Al Hydroxide/Mg Hydroxide (Mylanta Ii) 30 ml PO Q6H PRN PRN PRN Reason: Gastric Burning Aspirin (Ecotrin) 81 mg PO DAILY@0800 [facility] Last Admin: 03/22/19 08:44 Dose: 81 mg Atorvastatin Calcium (Lipitor) 40 mg PO QHS [facility] Dextrose (D50w Syringe) 0 gm IV X1 PRN; Protocol PRN Reason: Hypoglycemia Enoxaparin Sodium (Lovenox) 75 mg SC Q12 [facility] Last Admin: 03/22/19 08:46 Dose: 75 mg Fluoxetine HCl (Prozac) 60 mg PO DAILY [facility] Last Admin: 03/22/19 08:46 Dose: 60 mg Glucagon () 1 mg IM .X1 PRN PRN Reason: Hypoglycemia Lisinopril (Zestril) 5 mg PO DAILY [facility] Last Admin: 03/22/19 08:46 Dose: 5 mg Melatonin (Melatonin) 3 mg PO QHS PRN PRN PRN Reason: INSOMNIA Metoprolol Tartrate (Lopressor (Beta Denis)) 12.5 mg PO BID [facility] Last Admin: 03/22/19 08:45 Dose: 12.5 mg Morphine Sulfate () 2 mg IV Q3H PRN PRN PRN Reason: Severe Pain (7-10/10) Nitroglycerin (Nitrostat) 0.4 mg SUBLINGUAL Q5M PRN PRN Reason: CARDIAC/CHEST PAIN Ondansetron HCl (Zofran) 4 mg IV Q8H PRN PRN PRN Reason: NAUSEA/VOMITING Pantoprazole Sodium (Protonix) 40 mg PO DAILY [facility] Last Admin: 03/22/19 00:18 Dose: 40 mg Polysaccharide Iron Complex (Ferrex 150) 150 mg PO DAILY [facility] Last Admin: 03/22/19 08:45 Dose: 150 mg Sodium Chloride () 5 - 15 ml IV UD PRN PRN Reason: SALINE FLUSH Ticagrelor (Brilinta) 90 mg PO BID [facility] Last Admin: 03/22/19 08:45 Dose: 90 mg Medical Necessity - Tobacco Use Smoking Status: Never smoker Tobacco Use: Non-smoker Assessment/Plan All Active Problems (Last Reviewed 03/21/19 @ 23:50 by Mitchell Perdue MD) Chest pain (Acute) Valvular heart disease (Acute) Cellulitis of right hand (Acute) Cat bite of finger (Acute) Segmental and somatic dysfunction of cervical region (Acute) Segmental and somatic dysfunction of thoracic region (Acute) Cervicogenic headache (Acute) Non-STEMI (non-ST elevated myocardial infarction) (Acute) NSTEMI (non-ST elevated myocardial infarction) (Acute) Murmur, cardiac (Acute) This is a 68-year-old female with history of dyslipidemia, hypertension, NSTEMI status post RCA PCI (03-09-19), underlying chronic anemia was admitted with burning chest pain with radiation to back. ECG shows sinus rhythm/sinus bradycardia with nonspecific ST-T changes. 1. Atypical chest pain with non-STEMI and recent mid RCA stent: Serial troponin enzymes are negative. Scheduled for nuclear stress test tomorrow morning. Most probably it seems either GERD/peptic ulcer disease. May need outpatient EGD. Empirically started on PPI. Continue home cardiac medications aspirin, Brilinta, lisinopril and metoprolol. 2. Hypertension: Blood pressure is controlled 3. Dyslipidemia: On atorvastatin 4. Depression: On fluoxetine 5. DVT prophylaxis: On Lovenox 40 mg subcu daily. Laboratory Results 03/21/19 18:10: WBC 5.4, RBC 3.19 L, Hgb 9.7 L, Hct 29.7 L, MCV 93.1, MCH 30.4, MCHC 32.7, RDW 14.1, RDW Differential 47.6 H, Plt Count 274, MPV 10.0, Immature Gran % (Auto) 0.000, Neut % (Auto) 54.8, Lymph % (Auto) 32.9, Russell % (Auto) 9.7, Eos % (Auto) 1.9, Baso % (Auto) 0.7, Absolute Neuts (auto) 3.0, Absolute Lymphs (auto) 1.77, Total Counted Not Reportable 03/21/19 18:10: Sodium 142, Potassium 3.8, Chloride 115 H, Carbon Dioxide 21.0, Anion Gap 6, BUN 29 H, Creatinine 0.99, Estim Creat Clear Calc 45.66, Est GFR (MDRD) Af Amer 71, Est GFR (MDRD) Non-Af 59 L, BUN/Creatinine Ratio 29.3 H, Glucose 93, Calcium 8.5, Troponin I < 0.015 03/21/19 18:10: PT 12.3, INR 0.9 03/21/19 21:55: Troponin I < 0.015 03/22/19 01:00: Troponin I < 0.015 Code Visit OBSV E&M: 11555 Observ/hosp same date L2
[2019-03-22] MEDS: Atorvastatin Calcium 40 MG Tablet PO (22:13)
[2019-03-23] VITALS (7 sets, daily range): BP systolic 112–126; BP diastolic 71–76; PULSE 53–62; RESP 16; TEMP 36.6–36.7; O2SAT 93–97
--- NOTE | 2019-03-23 05:55 | EKG12_ITS ---
Test Reason : AM EKG Blood Pressure : / mmHG Vent. Rate : 055 BPM Atrial Rate : 055 BPM P-R Int : 216 ms QRS Dur : 088 ms QT Int : 472 ms P-R-T Axes : 045 007 002 degrees QTc Int : 451 ms Sinus bradycardia with 1st degree A-V block Nonspecific T wave abnormality Confirmed by RAZA SUERO, KERRY ([id number]), visual effects editor KAREN PEREZ ([id number]) on 03/27/2019 7:03:10 AM Referred By: Mitchell Perdue Confirmed By:KERRY PERSON MD
[2019-03-23] MEDS: TICAGRELOR 90 MG TABLET PO (05:56)
[2019-03-23] MEDS: Lisinopril 5 MG Tablet PO (05:56)
[2019-03-23] MEDS: Aspirin E.C. 81 MG Tablet PO (05:56)
[2019-03-23 06:08] LABS: Prothrombin Time (Protime)PT. 12.8 SECONDS (11.7-14.9)
[2019-03-23 06:09] LABS: Absolute Lymphocyte Count 1.72 X10^3/ul (0.83-4.51); Absolute Neutrophil Count 2.3 X10^3/uL (2.0-7.7); Basophil# 0.02 X10^3/uL; Basophil% 0.4 % (0-1); Eosinophil# 0.06 X10^3/uL; Eosinophils% 1.3 % (0-5); Hematocrit 27.7 % (37-47); Hemoglobin 9.1 g/dl (12.0-15.0); Lymphocyte # 1.72 X10^3/ul (4.0); Lymphocyte % 38.6 % (19-41); Mean Corp Hgb Conc 32.9 g/gl (32-36); Mean Corpuscular Hgb 30.2 pg (27.0-32.0); Mean Platelet Vol. 9.8 fl (6.2-12.0); Monocyte# 0.33 X10^3/uL; Monocyte% 7.4 % (0-10); Neutrophil # 2.33 X10^3/uL (2.7-7.7); Neutrophil % 52.3 % (47-70); Partial Thromboplast Time 28.3 Seconds (24.1-36.2); Platelet Count 241 K/mm3 (150-450); RBC Distribution Width CV 14.2 % (11.6-14.6); Red Blood Count 3.01 M/mm3 (4.2-5.4); White Blood Count 4.5 K/mm3 (4.4-11.0)
[2019-03-23 06:56] LABS: POSITIVE COUNT NO; POSITIVE DIFFERENTIAL NO; POSITIVE MORPHOLOGY NO
[2019-03-23 07:19] LABS: Anion Gap 9 (5-15); BUN 23 mg/dL (7-18); BUN/Creat Ratio 24.9 RATIO (10-20); Calcium,Total 8.4 mg/dL (8.5-10.1); Chloride 112 mmol/L (98-107); Creatinine, Serum 0.92 mg/dL (0.55-1.02); EST Glomerular Filtration Rate 64 mL/min (>60); Est Glom Filt Rate - Afr Amer 77 mL/min (>60); Estimated Creatinine Clearance 49.13 ml/min; Glucose 93 mg/dL (74-106); Potassium 3.6 mmol/L (3.5-5.1); Sodium Level 143 mmol/L (136-145)
[2019-03-23] MEDS: FLUoxetine 20 MG Capsule 60 MG PO (08:34)
[2019-03-23] MEDS: Pantoprazole Sodium 40 MG Tablet PO (08:34)
[2019-03-23] MEDS: Metoprolol Tartrate 25 MG Tablet 12.5 MG PO (08:35)
[2019-03-23] MEDS: Iron Polysaccharide Complex 150 MG CAPSULE PO (08:40)
[2019-03-23] MEDS: Acetaminophen 325 MG Tablet 650 MG PO (08:41)
--- NOTE | 2019-03-23 11:34 | CASEMGMT ---
Addendum entered by Cici Mac 03/23/19 14:17: This RN CM to room with SCHWAB form at this time, explanation done-pt voices understanding, and signs SCHWAB form at this time. Original to chart and copy to pt at this time. Pt voices no further questions/concerns/needs at this time. Anni JETT CM Original Note: Addendum entered by Cici Mac 03/23/19 13:10: This RN CM back to room with SCHWAB form and pt has visitor at bedside and is on the phone with someone at this time. Will attempt again later. Anni JETT CM Original Note: This RN CM to room to complete SCHWAB form at this time and pt is sleeping without distress at this time and does not awaken to knocks on door or verbal stimuli at this time. Anni JETT CM
--- NOTE | 2019-03-23 13:27 | STRESSREP_ITS ---
Stress Test Report Exercise myocardial perfusion stress test. 68-year-old lady with a history of chest pain. Medications: Aspirin, Lipitor, Prozac, melatonin, Lopressor. Stress protocol: Resting EKG demonstrates sinus rhythm with a rate of 58 beats minute normal intervals are noted resting blood pressures 150/82 mmHg. The patient exercised according to regular Jose protocol for total duration of 7 minutes patient completed 1 minute into stage III of the Jose protocol the maximum heart rate attained was 129 bpm which was 86% of maximum predicted heart rate the maximum workload was 8.5 metabolic equivalents. At rest there were no ST or T wave changes no suggest ischemia peak exercise upsloping ST changes only were noted with no meet the criteria for ischemia. The resting blood pressures 150/82 with a peak blood pressure 170/80 mmHg. Myocardial perfusion protocol. 11.8 mCi of technetium 99m sestamibi was injected at rest. The patient exer cised according to regular Jose protocol. At peak infusion 33.7 mCi of technetium 99m sestamibi was injected stress images were obtained stress and rest images were reconstructed and compared in the short axis vertical long horizontal long axis. Gated images were also obtained per Perfusion SPECT analysis: Review of the stress images demonstrate normal uptake of tracer noted in all areas of myocardium. The resting images similarly demonstrate normal uptake of tracer noted in all areas of myocardium. No areas of reversibility are noted suggest ischemia no previous infarct is noted. Gated SPECT analysis: The gated ejection fraction is noted to be 77%. Conclusion: Normal exercise myocardial perfusion stress test. Good functional aerobic capacity. Preserved ejection fraction.
--- NOTE | 2019-03-23 15:01 | PCM.DC ---
- Discharge Diagnoses Current Active Problems: Current Active and Chronic Problems (Last Reviewed 03/21/19 @ 23:50 by Mitchell Perdue MD) Chest pain (Acute) CAD (coronary artery disease), [place] coronary artery (Chronic) Valvular heart disease (Acute) You will use the following diet at home:: Cardiac Your food should be the consistency of: Regular Your liquids should be the consistency of: Regular/Thin Discharge Activity: Return to Normal Activity Call your doctor if you observe: Shortness of breath, Dizziness, Fainting spells, Swelling in the ankles, Chest pain, Increased palpitations (irregular heartbeat) Instructions: What Is GERD?, Lifestyle Changes for Controlling GERD, Medications for GERD, Esophagitis Additional Instructions: The stress test was negative. I suspect the etiology of the chest discomfort may be reflux. I sent a prescription to [facility] for a medication called Famotidine ( also called Pepcid). this medication decreases acid production in the stomach and you will take it twice a day....in the AM and at bedtime. Allergies/Adverse Reactions: Allergies simvastatin Adverse Reaction (Verified 03/21/19 18:02) Other muscle pain Medications to take at Discharge Fluoxetine HCl 60 mg PO DAILY 01/11/17 Multivitamin with Minerals [Multiple Vitamin] 1 each PO DAILY 03/08/19 [place]-3 Fatty Acids/Fish Oil [Fish Oil 1,000 mg Capsule] 1 each PO DAILY 03/08/19 Aspirin E.C. [Ecotrin] 81 mg PO DAILY@0800 03/21/19 Atorvastatin Calcium 40 mg PO QHS 03/21/19 Iron Polysaccharide Complex [Ferrex 150] 150 mg PO DAILY 03/21/19 Lisinopril [Zestril] 5 mg PO DAILY 03/21/19 Metoprolol Tartrate [Lopressor (beta abigail)] 12.5 mg PO BID 03/21/19 Ticagrelor [Brilinta] 90 mg PO BID 03/21/19 Famotidine [Pepcid] 20 mg PO BID #60 tablet 03/23/19 The following prescriptions were given: Famotidine [Pepcid] 20 mg PO BID #60 tablet Primary Care Physician: Ternece Barth Chi, MD [Primary Care Provider] - Please follow up with your Primary Care Physician in: 1 week Test Results: Test results from this visit will be discussed in further detail at your follow-up appointment, if applicable. Proposed Discharge Date: 03/23/19
--- NOTE | 2019-03-23 15:06 | DCINST_ITS ---
- Discharge Diagnoses Current Active Problems: Current Active and Chronic Problems (Last Reviewed 03/21/19 @ 23:50 by Mitchell ePrdue MD) Chest pain (Acute) CAD (coronary artery disease), [place] coronary artery (Chronic) Valvular heart disease (Acute) You will use the following diet at home:: Cardiac Your food should be the consistency of: Regular Your liquids should be the consistency of: Regular/Thin Discharge Activity: Return to Normal Activity Call your doctor if you observe: Shortness of breath, Dizziness, Fainting spells, Swelling in the ankles, Chest pain, Increased palpitations (irregular heartbeat) Instructions: What Is GERD?, Lifestyle Changes for Controlling GERD, Medications for GERD, Esophagitis Additional Instructions: The stress test was negative. I suspect the etiology of the chest discomfort may be reflux. I sent a prescription to [facility] for a medication called Famotidine ( also called Pepcid). this medication decreases acid production in the stomach and you will take it twice a day....in the AM and at bedtime. Allergies/Adverse Reactions: Allergies simvastatin Adverse Reaction (Verified 03/21/19 18:02) Other muscle pain Medications to take at Discharge Fluoxetine HCl 60 mg PO DAILY 01/11/17 Multivitamin with Minerals [Multiple Vitamin] 1 each PO DAILY 03/08/19 [place]-3 Fatty Acids/Fish Oil [Fish Oil 1,000 mg Capsule] 1 each PO DAILY 03/08/19 Aspirin E.C. [Ecotrin] 81 mg PO DAILY@0800 03/21/19 Atorvastatin Calcium 40 mg PO QHS 03/21/19 Iron Polysaccharide Complex [Ferrex 150] 150 mg PO DAILY 03/21/19 Lisinopril [Zestril] 5 mg PO DAILY 03/21/19 Metoprolol Tartrate [Lopressor (beta abigail)] 12.5 mg PO BID 03/21/19 Ticagrelor [Brilinta] 90 mg PO BID 03/21/19 Famotidine [Pepcid] 20 mg PO BID #60 tablet 03/23/19 The following prescriptions were given: Famotidine [Pepcid] 20 mg PO BID #60 tablet Primary Care Physician: Terence Barth Chi, MD [Primary Care Provider] - Please follow up with your Primary Care Physician in: 1 week Test Results: Test results from this visit will be discussed in further detail at your follow- up appointment, if applicable. Proposed Discharge Date: 03/23/19
--- NOTE | 2019-03-23 15:07 | PCM.DC.SUM ---
Discharge Date and Diagnosis - Problem List Patient Problems: Active and Suspected Problems (Last Reviewed 03/21/19 @ 23:50 by Mitchell Perdue MD) Mitral regurgitation (Acute) Mild aortic stenosis (Acute) GERD (gastroesophageal reflux disease) (Suspected) Chest pain (Acute) Date of Admission: 03/21/19 Date of Discharge: 03/23/19 - Primary Discharge Diagnosis Active and Suspected Problems (Last Reviewed 03/21/19 @ 23:50 by Mitchell Perdue MD) Chest pain (Acute) negative stress test - Secondary Discharge Diagnosis Chronic Problems (Last Reviewed 03/21/19 @ 23:50 by Mitchell Perdue MD) CAD (coronary artery disease), [place] coronary artery (Chronic) Atherosclerotic heart disease of [place] coronary artery without angina pectoris (Chronic) S/P coronary artery stent placement (Chronic ~03/09/19) PTCA/RAFAEL to mid RCA 03/09/19 History of anemia (Chronic) Hyperlipidemia (Chronic) Hypertension (Chronic) Chronic pain (Chronic) History of cholelithiasis (Chronic) Chronic back pain (Chronic) Anemia (Chronic) Degenerative disc disease, cervical (Chronic) Mild aortic stenosis Mitral regurgitation-mild to moderate Hospital Course and Treatment Imaging Results: Clinical Impression(s) from Imaging Studies Chest X-Ray 03/21/19 18:16 IMPRESSION: Stable, nonacute x-ray examination of the chest. Electronically Signed: Christiano Troncoso MD at 18:33 EDT , Service support , Laboratory Results - last 24 hr 03/23/19 03/23/19 03/23/19 05:30 05:30 05:30 WBC 4.5 RBC 3.01 L Hgb 9.1 L Hct 27.7 L MCV 92.0 MCH 30.2 MCHC 32.9 RDW 14.2 RDW Differential 47.0 H Plt Count 241 MPV 9.8 Immature Gran % (Auto) 0.000 Neut % (Auto) 52.3 Lymph % (Auto) 38.6 [place] % (Auto) 7.4 Eos % (Auto) 1.3 Baso % (Auto) 0.4 Absolute Neuts (auto) 2.3 Absolute Lymphs (auto) 1.72 Total Counted Not Reportable PT 12.8 INR 1.0 APTT 28.3 Sodium 143 Potassium 3.6 Chloride 112 H Carbon Dioxide 22.0 Anion Gap 9 BUN 23 H Creatinine 0.92 Estim Creat Clear Calc 49.13 Est GFR (MDRD) Af Amer 77 Est GFR (MDRD) Non-Af 64 BUN/Creatinine Ratio 24.9 H Glucose [address] [facility] Operations: None Procedures: Stress test - Conclusion: Normal exercise myocardial perfusion stress test. Good functional aerobic capacity. Preserved ejection fraction. Summary of Care Provided: The patient is a 68 year old F with a past medical history of hypertension, hyperlipidemia, mild aortic stenosis, mild to moderate mitral regurgitation, and coronary artery disease with recent PTCA/RAFAEL to the mid RCA on 03/09/2019 who presented to the emergency department at [facility] on 03/21/2019 complaining of intermittent epigastric and substernal chest pain/burning radiating to her back. The pain was not associated with exertion and she denied diaphoresis, shortness of breath or palpitations. The pain lasted for several hours. EKG in the emergency room showed sinus bradycardia with no suspicious ST or T wave changes. Troponin was within normal limits. She was admitted to a monitored bed on the progressive care unit and Dr. Girard was consulted. Serial cardiac enzymes were negative. Dr. Girard recommended a treadmill nuclear stress test and this was performed on 03/23/2019 and was negative. She was discharged home with a prescription for famotidine 20 mg p.o. twice daily and she was given printed literature on GERD, medications for GERD and lifestyle changes for GERD. She will follow-up with her primary care physician, Dr. salvador Barth, in 1 week. General: alert, oriented X3, NAD, appropriate with normal affect Neck: supple, trachea midline, carotids have brisk upstroke and normal pulse volume, no JVD, no carotid bruits Lungs: CTA, symmetric chest expansion, not tachypneic, able to lie flat with no respiratory distress Heart: Regular rate and rhythm, normal S1, normal S2, no murmur, no gallop, no rub, PMI is on the midclavicular line Abdomen: soft, NT, ND, BS's present Extremities: no edema, no calf tenderness, peripheral pulses are normal, no cyanosis This note was generated with Dragon dictation software. It may contain incorrect words, spelling, and punctuation that were not noted in checking the note before signing. Patient Problems: Active and Suspected Problems (Last Reviewed 03/21/19 @ 23:50 by Mitchell Perdue MD) Mitral regurgitation (Acute) Mild aortic stenosis (Acute) GERD (gastroesophageal reflux disease) (Suspected) Chest pain (Acute) - Physical Exam Vital Signs Temp Pulse Resp BP Pulse Ox 98.1 F 62 16 112/71 97 03/23/19 11:45 03/23/19 11:45 03/23/19 11:45 03/23/19 11:45 03/23/19 11:45 Oxygen Delivery Method Room Air Weight: 163 lb 5.8 oz Body Mass Index (BMI) 28.0 Intake and Output for Last 24 Hours 03/21/19 03/22/19 03/23/19 23:59 23:59 23:59 Intake Total 1795 / 1795 480 / 480 Balance 1795 / 1795 480 / 480 Laboratory Tests Past 24 Hrs 03/23/19 03/23/19 03/23/19 05:30 05:30 05:30 WBC 4.5 RBC 3.01 L Hgb 9.1 L Hct 27.7 L MCV 92.0 MCH 30.2 MCHC 32.9 RDW 14.2 RDW Differential 47.0 H Plt Count 241 MPV 9.8 Immature Gran % (Auto) 0.000 Neut % (Auto) 52.3 Lymph % (Auto) 38.6 [place] % (Auto) 7.4 Eos % (Auto) 1.3 Baso % (Auto) 0.4 Absolute Neuts (auto) 2.3 Absolute Lymphs (auto) 1.72 Total Counted Not Reportable PT 12.8 INR 1.0 APTT 28.3 Sodium 143 Potassium 3.6 Chloride 112 H Carbon Dioxide 22.0 Anion Gap 9 BUN 23 H Creatinine 0.92 Estim Creat Clear Calc 49.13 Est GFR (MDRD) Af Amer 77 Est GFR (MDRD) Non-Af 64 BUN/Creatinine Ratio 24.9 H Glucose 93 Calcium 8.4 L Discharge Activity: Return to Normal Activity Call your doctor if you observe: Shortness of breath, Dizziness, Fainting spells, Swelling in the ankles, Chest pain, Increased palpitations (irregular heartbeat) Home Medications: Medications to take at Discharge Fluoxetine HCl 60 mg PO DAILY 01/11/17 Multivitamin with Minerals [Multiple Vitamin] 1 each PO DAILY 03/08/19 [place]-3 Fatty Acids/Fish Oil [Fish Oil 1,000 mg Capsule] 1 each PO DAILY 03/08/19 Aspirin E.C. [Ecotrin] 81 mg PO DAILY@0800 03/21/19 Atorvastatin Calcium 40 mg PO QHS 03/21/19 Iron Polysaccharide Complex [Ferrex 150] 150 mg PO DAILY 03/21/19 Lisinopril [Zestril] 5 mg PO DAILY 03/21/19 Metoprolol Tartrate [Lopressor (beta abigail)] 12.5 mg PO BID 03/21/19 Ticagrelor [Brilinta] 90 mg PO BID 03/21/19 Famotidine [Pepcid] 20 mg PO BID #60 tablet 03/23/19 Following Prescrptions Were Given to Patient: Famotidine [Pepcid] 20 mg PO BID #60 tablet Primary Care Physician: Salvador Barth Chi, MD [Primary Care Provider] - Please follow up with your Primary Care Physician in: 1 week Patient Instructions: Esophagitis, What Is GERD?, Lifestyle Changes for Controlling GERD, Medications for GERD Disposition: Home Minutes spent on discharge:: 30 Patient Condition:: Good Medical Necessity - Tobacco Use Smoking Status: Never smoker Tobacco Use: Non-smoker Meaningful Use Info Meaningful Use Diagnoses (Choose all that apply): None applicable Code Visit OBSV E&M: 28922 Observation care discharge
--- NOTE | 2019-03-23 15:16 | DS.PCM_ITS ---
Discharge Date and Diagnosis - Problem List Patient Problems: Active and Suspected Problems (Last Reviewed 03/21/19 @ 23:50 by Mitchell Perdue MD) Mitral regurgitation (Acute) Mild aortic stenosis (Acute) GERD (gastroesophageal reflux disease) (Suspected) Chest pain (Acute) Date of Admission: 03/21/19 Date of Discharge: 03/23/19 - Primary Discharge Diagnosis Active and Suspected Problems (Last Reviewed 03/21/19 @ 23:50 by Mitchell Perdue MD) Chest pain (Acute) negative stress test - Secondary Discharge Diagnosis Chronic Problems (Last Reviewed 03/21/19 @ 23:50 by Mitchell Perdue MD) CAD (coronary artery disease), [place] coronary artery (Chronic) Atherosclerotic heart disease of [place] coronary artery without angina pectoris (Chronic) S/P coronary artery stent placement (Chronic ~03/09/19) PTCA/RAFAEL to mid RCA 03/09/19 History of anemia (Chronic) Hyperlipidemia (Chronic) Hypertension (Chronic) Chronic pain (Chronic) History of cholelithiasis (Chronic) Chronic back pain (Chronic) Anemia (Chronic) Degenerative disc disease, cervical (Chronic) Mild aortic stenosis Mitral regurgitation-mild to moderate Hospital Course and Treatment Imaging Results: Clinical Impression(s) from Imaging Studies Chest X-Ray 03/21/19 18:16 IMPRESSION: Stable, nonacute x-ray examination of the chest. Electronically Signed: Christiano Troncoso MD at 18:33 EDT , Service support , Laboratory Results - last 24 hr 03/23/19 03/23/19 03/23/19 05:30 05:30 05:30 WBC 4.5 RBC 3.01 L Hgb 9.1 L Hct 27.7 L MCV 92.0 MCH 30.2 MCHC 32.9 RDW 14.2 RDW Differential 47.0 H Plt Count 241 MPV 9.8 Immature Gran % (Auto) 0.000 Neut % (Auto) 52.3 Lymph % (Auto) 38.6 [place] % (Auto) 7.4 Eos % (Auto) 1.3 Baso % (Auto) 0.4 Absolute Neuts (auto) 2.3 Absolute Lymphs (auto) 1.72 Total Counted Not Reportable PT 12.8 INR 1.0 APTT 28.3 Sodium 143 Potassium 3.6 Chloride 112 H Carbon Dioxide 22.0 Anion Gap 9 BUN 23 H Creatinine 0.92 Estim Creat Clear Calc 49.13 Est GFR (MDRD) Af Amer 77 Est GFR (MDRD) Non-Af 64 BUN/Creatinine Ratio 24.9 H Glucose [address] [facility] Operations: None Procedures: Stress test - Conclusion: Normal exercise myocardial perfusion stress test. Good functional aerobic capacity. Preserved ejection fraction. Summary of Care Provided: The patient is a 68 year old F with a past medical history of hypertension, hyperlipidemia, mild aortic stenosis, mild to moderate mitral regurgitation, and coronary artery disease with recent PTCA/RAFAEL to the mid RCA on 03/09/2019 who presented to the emergency department at [facility] on 03/21/2019 complaining of intermittent epigastric and substernal chest pain/burning radiating to her back. The pain was not associated with exertion and she denied diaphoresis, shortness of breath or palpitations. The pain lasted for several hours. EKG in the emergency room showed sinus bradycardia with no suspicious ST or T wave changes. Troponin was within normal limits. She was admitted to a monitored bed on the progressive care unit and Dr. Girard was consulted. Serial cardiac enzymes were negative. Dr. Girard recommended a treadmill nuclear stress test and this was performed on 03/23/2019 and was negative. She was discharged home with a prescription for famotidine 20 mg p.o. twice daily and she was given printed literature on GERD, medications for GERD and lifestyle changes for GERD. She will follow-up with her primary care physician, Dr. salvador Barth, in 1 week. General: alert, oriented X3, NAD, appropriate with normal affect Neck: supple, trachea midline, carotids have brisk upstroke and normal pulse volume, no JVD, no carotid bruits Lungs: CTA, symmetric chest expansion, not tachypneic, able to lie flat with no respiratory distress Heart: Regular rate and rhythm, normal S1, normal S2, no murmur, no gallop, no rub, PMI is on the midclavicular line Abdomen: soft, NT, ND, BS's present Extremities: no edema, no calf tenderness, peripheral pulses are normal, no cyanosis This note was generated with Dragon dictation software. It may contain incorrect words, spelling, and punctuation that were not noted in checking the note before signing. Patient Problems: Active and Suspected Problems (Last Reviewed 03/21/19 @ 23:50 by Mitchell Perdue MD) Mitral regurgitation (Acute) Mild aortic stenosis (Acute) GERD (gastroesophageal reflux disease) (Suspected) Chest pain (Acute) - Physical Exam Vital Signs Temp Pulse Resp BP Pulse Ox 98.1 F 62 16 112/71 97 03/23/19 11:45 03/23/19 11:45 03/23/19 11:45 03/23/19 11:45 03/23/19 11:45 Oxygen Delivery Method Room Air Weight: 163 lb 5.8 oz Body Mass Index (BMI) 28.0 Intake and Output for Last 24 Hours 03/21/19 03/22/19 03/23/19 23:59 23:59 23:59 Intake Total 1795 / 1795 480 / 480 Balance 1795 / 1795 480 / 480 Laboratory Tests Past 24 Hrs 03/23/19 03/23/19 03/23/19 05:30 05:30 05:30 WBC 4.5 RBC 3.01 L Hgb 9.1 L Hct 27.7 L MCV 92.0 MCH 30.2 MCHC 32.9 RDW 14.2 RDW Differential 47.0 H Plt Count 241 MPV 9.8 Immature Gran % (Auto) 0.000 Neut % (Auto) 52.3 Lymph % (Auto) 38.6 [place] % (Auto) 7.4 Eos % (Auto) 1.3 Baso % (Auto) 0.4 Absolute Neuts (auto) 2.3 Absolute Lymphs (auto) 1.72 Total Counted Not Reportable PT 12.8 INR 1.0 APTT 28.3 Sodium 143 Potassium 3.6 Chloride 112 H Carbon Dioxide 22.0 Anion Gap 9 BUN 23 H Creatinine 0.92 Estim Creat Clear Calc 49.13 Est GFR (MDRD) Af Amer 77 Est GFR (MDRD) Non-Af 64 BUN/Creatinine Ratio 24.9 H Glucose 93 Calcium 8.4 L Discharge Activity: Return to Normal Activity Call your doctor if you observe: Shortness of breath, Dizziness, Fainting spells, Swelling in the ankles, Chest pain, Increased palpitations (irregular heartbeat) Home Medications: Medications to take at Discharge Fluoxetine HCl 60 mg PO DAILY 01/11/17 Multivitamin with Minerals [Multiple Vitamin] 1 each PO DAILY 03/08/19 [place]-3 Fatty Acids/Fish Oil [Fish Oil 1,000 mg Capsule] 1 each PO DAILY 03/08/19 Aspirin E.C. [Ecotrin] 81 mg PO DAILY@0800 03/21/19 Atorvastatin Calcium 40 mg PO QHS 03/21/19 Iron Polysaccharide Complex [Ferrex 150] 150 mg PO DAILY 03/21/19 Lisinopril [Zestril] 5 mg PO DAILY 03/21/19 Metoprolol Tartrate [Lopressor (beta abigail)] 12.5 mg PO BID 03/21/19 Ticagrelor [Brilinta] 90 mg PO BID 03/21/19 Famotidine [Pepcid] 20 mg PO BID #60 tablet 03/23/19 Following Prescrptions Were Given to Patient: Famotidine [Pepcid] 20 mg PO BID #60 tablet Primary Care Physician: Salvador Barth Chi, MD [Primary Care Provider] - Please follow up with your Primary Care Physician in: 1 week Patient Instructions: Esophagitis, What Is GERD?, Lifestyle Changes for Controlling GERD, Medications for GERD Disposition: Home Minutes spent on discharge:: 30 Patient Condition:: Good Medical Necessity - Tobacco Use Smoking Status: Never smoker Tobacco Use: Non-smoker Meaningful Use Info Meaningful Use Diagnoses (Choose all that apply): None applicable Code Visit OBSV E&M: 76506 Observation care discharge
--- NOTE | 2019-03-23 17:24 | PN.CARD_ITS ---
Subjectve: The patient was evaluated earlier this day following her exercise tolerance test. She stated she had no other new concerns. Her previous concerns were absent. She had been up and ambulating and feeling well. Objective: Vital Signs Temp Pulse Resp BP Pulse Ox 98.1 F 62 16 112/71 97 03/23/19 11:45 03/23/19 11:45 03/23/19 11:45 03/23/19 11:45 03/23/19 11:45 Oxygen Delivery Method Room Air Weight: 163 lb 5.8 oz Body Mass Index (BMI) 28.0 Intake and Output for Last 24 Hours 03/21/19 03/22/19 03/23/19 23:59 23:59 23:59 Intake Total 1795 / 1795 480 / 480 Balance 1795 / 1795 480 / 480 General: Awake, Alert, Oriented x 3, Cooperative, No Acute Distress HEENT: Atraumatic, Normocephalic, PERRL, EOMI, Sclera Non Icteric Oral: Moist Mucosa Neck: Supple, Good ROM, No JVD Lungs: Clear to auscultation Cardiovascular: Regular Rhythm, Normal S1, Normal S2 Murmur Murmur: Grade 2/6, Soft, Mid Systolic, LLSB, LVOT, Sternal Notch Abdomen: Bowel Sounds Present, Soft, Non Tender Extremities: No edema Neurological: No Focal Motor or Sensory Deficit Psych/Mental Status: Appropriate 03/23/19 05:30: WBC 4.5, RBC 3.01 L, Hgb 9.1 L, Hct 27.7 L, MCV 92.0, MCH 30.2, MCHC 32.9, RDW 14.2, RDW Differential 47.0 H, Plt Count 241, MPV 9.8, Immature Gran % (Auto) 0.000, Neut % (Auto) 52.3, Lymph % (Auto) 38.6, [place] % (Auto) 7.4, Eos % (Auto) 1.3, Baso % (Auto) 0.4, Absolute Neuts (auto) 2.3, Total Counted Not Reportable 03/23/19 05:30: PT 12.8, INR 1.0, APTT 28.3 03/23/19 05:30: Sodium 143, Potassium 3.6, Chloride 112 H, Carbon Dioxide 22.0, Anion Gap 9, BUN 23 H, Creatinine 0.92, Est GFR (MDRD) Af Amer 77, Est GFR (MDRD) Non-Af 64, BUN/Creatinine Ratio 24.9 H, Glucose 93, Calcium 8.4 L Rhythm: EKG: Sinus rhythm Stress Test: Stress Test Report Exercise myocardial perfusion stress test. 68-year-old lady with a history of chest pain. Medications: Aspirin, Lipitor, Prozac, melatonin, Lopressor. Stress protocol: Resting EKG demonstrates sinus rhythm with a rate of 58 beats minute normal intervals are noted resting blood pressures 150/82 mmHg. The patient exercised according to regular Jose protocol for total duration of 7 minutes patient completed 1 minute into stage III of the Jose protocol the maximum heart rate attained was 129 bpm which was 86% of maximum predicted heart rate the maximum workload was 8.5 metabolic equivalents. At rest there were no ST or T wave changes no suggest ischemia peak exercise upsloping ST changes only were noted with no meet the criteria for ischemia. The resting blood pressures 150/82 with a peak blood pressure 170/80 mmHg. Myocardial perfusion protocol. 11.8 mCi of technetium 99m sestamibi was injected at rest. The patient exercised according to regular Jose protocol. At peak infusion 33.7 mCi of technetium 99m sestamibi was injected stress images were obtained stress and rest images were reconstructed and compared in the short axis vertical long horizontal long axis. Gated images were also obtained per Perfusion SPECT analysis: Review of the stress images demonstrate normal uptake of tracer noted in all areas of myocardium. The resting images similarly demonstrate normal uptake of tracer noted in all areas of myocardium. No areas of reversibility are noted suggest ischemia no previous infarct is noted. Gated SPECT analysis: The gated ejection fraction is noted to be 77%. Conclusion: Normal exercise myocardial perfusion stress test. Good functional aerobic capacity. Preserved ejection fraction. Medical Necessity - Tobacco Use Smoking Status: Never smoker Tobacco Use: Non-smoker Assessment/Plan 1. Chest pain The patient is now status post her exercise tolerance test/imaging study. This test was thought to be negative for any evidence of inducible myocardial ischemia by symptoms or objective findings. At the moment the patient will continue medical management for her cardiovascular disease. There are no immediate plans for additional noninvasive or invasive studies. If she continues with symptoms that are otherwise unexplained then she may need to be reconsidered for reevaluation in the cardiac catheterization laboratory. 2. CAD status post PCI Again her rule out SC protocol has been negative. Her noninvasive study is as noted above. She will continue medical management and follow-up. 3. Valvular heart disease She does have an element of underlying valvular heart disease as described based upon her examination and her echocardiographic studies. She will continue to be followed. 4. Hyperlipidemia She will continue risk factor evaluation care as deemed appropriate. 5. Hypertension She will continue medical management with adjustment as deemed appropriate. 6. Anemia She continues to follow with hematology/oncology for her anemia. Comment: The above was discussed reviewed with the patient and the [facility] staff. This note was generated with [employer] dictation software. It may contain incorrect words, spelling, and punctuation that were not noted in checking the note before signing.
== END 2019-03-23 15:06 | disposition home or self-care (01) ==
LOC: ED 18:26 → PCU 03-22 07:22
PROVIDERS: Internal Medicine Cardiovascular Disease; Admitting Provider Hospitalist; Emergency Provider Emergency Medicine; Family Provider Family Medicine Geriatric Medicine; PCP Family Medicine Geriatric Medicine; Referring Provider Hospitalist; Visit Provider Internal Medicine
DX: R07.89 Other chest pain (principal); I10 Essential (primary) hypertension; R06.02 Shortness of breath; E78.5 Hyperlipidemia, unspecified; I25.10 Atherosclerotic heart disease of native coronary artery without angina pectoris; R00.1 Bradycardia, unspecified; D64.9 Anemia, unspecified; M99.01 Segmental and somatic dysfunction of cervical region; M99.02 Segmental and somatic dysfunction of thoracic region; I25.2 Old myocardial infarction; Z95.5 Presence of coronary angioplasty implant and graft; Z79.899 Other long term (current) drug therapy; Z79.82 Long term (current) use of aspirin; F32.9 Major depressive disorder, single episode, unspecified
CPT/HCPCS: 36415; 71045; 78452; 80048; 84484; 85025; 85610; 85730; 93005; 93017; 96372; 99218; 99285; A9500; A4216; G0378

== ENCOUNTER → 2019-07-23 16:04 | Outpatient (CLI) | payer MEDICARE, SELFPAY ==
[2019-07-09 13:41] VITALS: BMI 28.0
[2019-07-23 16:41] LABS: Absolute Lymphocyte Count 1.55 X10^3/uL (0.83-4.51); Absolute Neutrophil Count 3.8 X10^3/uL (2.0-7.7); Basophil# 0.03 X10^3/uL; Basophil% 0.5 % (0-1); Eosinophil# 0.09 X10^3/uL; Eosinophils% 1.5 % (0-5); Hematocrit 33.3 % (37-47); Hemoglobin 10.5 g/dL (12.0-15.0); Lymphocyte # 1.55 X10^3/ul (4.0); Lymphocyte % 26.2 % (19-41); Mean Corp Hgb Conc 31.5 g/dL (32-36); Mean Corpuscular Hgb 29.9 pg (27.0-32.0); Mean Corpuscular Volume 94.9 fL (81-99); Mean Platelet Vol. 10.4 fl (6.2-12.0); Monocyte# 0.46 X10^3/uL; Monocyte% 7.8 % (0-10); NRBC Flagged by Analyzer 0 % (0-5); Neutrophil # 3.76 X10^3/uL (2.7-7.7); Neutrophil % 63.7 % (47-70); Platelet Count 214 K/mm3 (150-450); RBC Distribution Width CV 13.2 % (11.6-14.6); RBC Distribution Width SD 45.3 fl (35.1-43.9); Red Blood Count 3.51 M/mm3 (4.2-5.4); White Blood Count 5.9 K/mm3 (4.4-11.0)
[2019-07-23 17:19] LABS: ALB/GLOB Ratio 1.2 RATIO (0.9-2.4); AST(SGOT) 21 U/L (15-37); Alanine Aminotransfer ALT/SGPT 30 U/L (13-56); Albumin, Serum 3.8 g/dL (3.2-5.0); Alkaline Phosphatase 73 U/L (45-117); Anion Gap 7 (5-15); BUN 31 mg/dL (7-18); BUN/Creat Ratio 28.2 RATIO (10-20); Chloride 110 mmol/L (98-107); EST Glomerular Filtration Rate 52 mL/min (>60); Est Glom Filt Rate - Afr Amer 63 mL/min (>60); Globulin 3.1 g/dL (2.2-4.2); Glucose 91 mg/dL (74-106); Potassium 4.3 mmol/L (3.5-5.1); Protein, Total 6.9 g/dL (6.4-8.2); Sodium Level 142 mmol/L (136-145); Thyroid Stim Hormone (TSH) 1.02 uIU/mL (0.358-3.74)
== END ==
LOC: POLAB3 16:04
PROVIDERS: Family Provider Family Medicine Geriatric Medicine; PCP Family Medicine Geriatric Medicine; Visit Provider Family Medicine Geriatric Medicine
DX: I10 Essential (primary) hypertension (principal); E55.9 Vitamin D deficiency, unspecified
CPT/HCPCS: 36415; 80053; 82306; 84443; 85025